=== PATIENT | female | born 1960 | race American Indian/Alaskan Native ===

== ENCOUNTER → 2020-11-05 08:05 | Outpatient (BNVA) | payer OTHER, SELFPAY | PROVIDERS: PCP Physician Assistant; Visit Provider Surgery ==

== ENCOUNTER 2020-12-12 10:33 | Outpatient (REF) | payer OTHER, SELFPAY ==
--- NOTE | ~2020-12-12 | XR_ITS ---
EXAMINATION: XR CHEST CLINICAL INFORMATION: 60-year-old female patient with GERD. COMPARISON: None TECHNIQUE: 2 views of the chest were obtained. FINDINGS: The heart is normal in size. The lungs are clear showing no acute pulmonary parenchymal or pleural disease. The patient's gallbladder has been surgically removed. XR/XR chest 2V IMPRESSION: No acute disease.
--- NOTE | 2020-12-12 10:41 | ECG_ITS ---
Test Reason : gerd Blood Pressure : / mmHG Vent. Rate : 063 BPM Atrial Rate : 063 BPM P-R Int : 138 ms QRS Dur : 084 ms QT Int : 400 ms P-R-T Axes : 006 052 039 degrees QTc Int : 409 ms Normal sinus rhythm Normal ECG No previous ECGs available Referred By: Kulwinder Lucero Electronically Signed By:JEREMÍAS GEORGES MD
[2020-12-12 11:00] LABS: MANUAL DIFF FLAG NO
[2020-12-12 11:56] LABS: Basophils Percent Auto 0.2 % (0-2); Eosinophils Absolute Auto 0.2 X10*3/uL (0.0-0.4); Hematocrit 38.4 % (37-47); Imm Gran Abs Auto 0.02 X10*3/uL (0.00-0.03); Imm Gran Pct Auto 0.3 % (0.0-0.4); Lymphocytes Absolute Auto 1.6 X10*3/uL (1.2-4.9); Lymphocytes Percent Auto 26.1 % (20-40); Mean Corpuscular HGB Conc 33.9 g/dl (31.0-35.0); Mean Corpuscular Volume 94.6 fL (80-98); Mean Platelet Volume 9.6 fL (9.4-12.3); Monocytes Absolute Auto 0.3 X10*3/uL (0.1-1.2); Monocytes Percent Auto 5.3 % (2-11); Neutrophils Absolute Auto 3.9 X10*3/uL (2.0-8.3); Neutrophils Percent Auto 65.1 % (45-73); Platelet Count 284 X10*3/uL (160-400); Red Blood Count 4.06 X10*6/uL (4.20-5.50); Red Cell Distribution Width 11.9 % (11.0-16.0)
[2020-12-12 12:09] LABS: Estimated Average Glucose 111 mg/dL; Hemoglobin A1c % 5.5 %
[2020-12-12 12:20] LABS: Alanine Aminotransferase 31 U/L (0-31); Albumin Level 4.4 g/dL (3.5-5.0); Alkaline Phosphatase 90 U/L (39-117); Anion Gap 11 (12-20); Aspartate Amino Transferase 24 U/L (5-31); Bilirubin Total 0.4 mg/dL (0.0-1.0); Blood Urea Nitrogen 10 mg/dL (9-16); C Reactive Protein 0.96 mg/dL (< or = 0.50); Calcium 9.9 mg/dL (8.4-10.2); Carbon Dioxide 29 mmol/L (22-29); Chloride 105 mmol/L (96-108); Cholesterol 189 mg/dL; Estimated Glomerular Filt Rate > 60; Glucose Random 104 mg/dL (60-115); HDL Cholesterol 50 mg/dL; Iron 81 mcg/dL (30-160); LDL Cholesterol Calculated 127 mg/dl; Percent Iron Saturation 29 % (15-50); Potassium 5.1 mmol/L (3.3-5.1); Sodium 140 mmol/L (135-145); Total Iron Binding Capacity 279 mcg/dL (228-428); Total Protein 6.4 g/dL (6.5-8.0); Triglycerides 60 mg/dL; Unsaturated Iron Binding 198 ug/dL
[2020-12-12 12:26] LABS: Creatinine Urine 112.11 mg/dL; Microalbum/Creatinine Ratio Ur 4.4 ug/mg cr
[2020-12-12 12:38] LABS: Insulin 20 uU/mL (2-29)
[2020-12-12 12:43] LABS: Ferritin 94 ng/mL (10-250); Vitamin D 25-OH Total 16.5 ng/mL (>30)
[2020-12-12 12:50] LABS: Folate 8.8 ng/mL (> or = 4.0); Vitamin B12 394 pg/mL (200-900)
[2020-12-12 13:20] LABS: Free T4 (Free Thyroxine) 0.94 ng/dL (0.71-1.85)
[2020-12-16 01:37] LABS: Calcium (PTHI) 9.5 mg/dL (8.6-10.4); PTHI 54 pg/mL (14-64)
[2020-12-17 03:25] LABS: Zinc 67 mcg/dL (60-130)
[2020-12-17 18:16] LABS: Vitamin A 29 mcg/dL (38-98)
[2020-12-19 05:45] LABS: Vitamin B1 14 nmol/L (8-30)
== END 2020-12-12 10:34 | disposition home or self-care (01) ==
LOC: HO.XRAY 10:33
PROVIDERS: Absent Provider Surgery; PCP Physician Assistant; Visit Provider Physician Assistant
DX: F33.1 Major depressive disorder, recurrent, moderate (principal); G43.109 Migraine with aura, not intractable, without status migrainosus; G47.00 Insomnia, unspecified; I10 Essential (primary) hypertension; J41.0 Simple chronic bronchitis; K21.9 Gastro-esophageal reflux disease without esophagitis; R11.15 Cyclical vomiting syndrome unrelated to migraine
CPT/HCPCS: 36415; 71046; 80053; 80061; 82043; 82306; 82607; 82728; 82746; 83036; 83525; 83540; 83970; 84425; 84439; 84443; 84590; 84630; 85025; 86140; 93005

== ENCOUNTER → 2020-12-18 09:03 | Outpatient (BNVA) | payer OTHER, SELFPAY | PROVIDERS: PCP Physician Assistant; Referring Provider Physician Assistant; Visit Provider Physician Assistant Surgical ==

== ENCOUNTER → 2020-12-24 08:17 | Outpatient (BNVA) | payer OTHER, SELFPAY | PROVIDERS: PCP Physician Assistant; Visit Provider Surgery ==

== ENCOUNTER 2021-02-05 11:02 | Outpatient (REF) | payer OTHER, SELFPAY ==
--- NOTE | ~2021-02-05 | XR_ITS ---
EXAMINATION: XR HIP, RIGHT CLINICAL INFORMATION: Right lower quadrant pain COMPARISON: None TECHNIQUE: Two views of the right hip. FINDINGS: Mild narrowing of the weightbearing joint space with subchondral sclerosis and minimal spurring. No ostial lysis. No fracture or suspicious lesion. Radiodense diverticula in the sigmoid colon. XR/XR hip RT min 2V IMPRESSION: Mild osteoarthritis of the right hip.
== END 2021-02-05 11:03 | disposition home or self-care (01) ==
LOC: HO.XRAY 11:02
PROVIDERS: PCP Physician Assistant; Visit Provider Physician Assistant
DX: M25.551 Pain in right hip (principal); R10.31 Right lower quadrant pain
CPT/HCPCS: 73502

== ENCOUNTER 2021-08-07 07:18 | Outpatient (REF) | payer OTHER, SELFPAY ==
--- NOTE | ~2021-08-07 | CT_ITS ---
EXAMINATION: CT ABDOMEN AND PELVIS WITHOUT CONTRAST CLINICAL INFORMATION: Right lower quadrant pain. COMPARISON: None TECHNIQUE: Multidetector volumetric imaging was performed from the superior aspect of the liver through the pubic symphysis. Sagittal and coronal reformatted images were obtained on the technologist's workstation. This CT examination was performed using dose optimization techniques as appropriate, variously including the following: *Automated exposure control *Adjustment of mA and/or kV according to patient size (this includes techniques or standardized protocols for targeted exams where dose is matched to indication/reason for exam; i.e. extremities or head) *Use of iterative reconstruction technique DLP: 1009 mGy-cm FINDINGS: LUNG BASES: The visualized lung bases are unremarkable. LIVER, GALLBLADDER, AND BILIARY TREE: The liver is normal in size, shape, and attenuation. No focal hepatic lesion or biliary ductal dilatation is present. The gallbladder has been surgically removed. PANCREAS: Unremarkable. SPLEEN: Unremarkable. ADRENAL GLANDS: Unremarkable. KIDNEYS AND URETERS: The kidneys are normal in size, shape, and attenuation. No hydronephrosis, hydroureter, or calculi seen. No perinephric stranding. BLADDER: Unremarkable. GASTROINTESTINAL TRACT: There is scattered stool and gas seen throughout the colon without distention. Oral contrast opacified small bowel loops are normal. Appendix is not seen. There is no inflammatory changes in the right lower quadrant. The stomach is partially distended with recently ingested oral fluid and oral contrast. ABDOMINAL WALL: A small umbilical hernia containing fat is noted. LYMPH NODES: Normal. VASCULAR: Unremarkable. PELVIC VISCERA: The uterus is anteverted and appears unremarkable. No free fluid. No adnexal mass. No abnormal pelvic or inguinal adenopathy. OSSEOUS STRUCTURES: No lytic or sclerotic process seen. There is mild bilateral L5-S1 facet joint arthropathy. CT/CT abdomen pelvis wo con IMPRESSION: No acute intra-abdominal abnormality seen. Especially there is no abnormality in the right lower quadrant. Mild constipation. Appendix is not seen. Fleischner guidelines were followed.
[2021-08-07] MEDS: Barium Sulfate Oral (Mocha) 450 ML ORAL.SUSP 900 ML PO (09:27)
== END 2021-08-07 07:19 | disposition home or self-care (01) ==
LOC: HO.CT 07:18
PROVIDERS: Visit Provider Physician Assistant
DX: R10.31 Right lower quadrant pain (principal); R10.32 Left lower quadrant pain
CPT/HCPCS: 74176

== ENCOUNTER 2021-08-12 09:19 | Outpatient (REF) | payer OTHER, SELFPAY ==
--- NOTE | ~2021-08-12 | XR_ITS ---
EXAMINATION: XR CERVICAL SPINE XR SHOULDER, RIGHT CLINICAL INFORMATION: Neck pain and right shoulder pain. COMPARISON: None TECHNIQUE: Cervical spine 4 views. Right shoulder 4 views. FINDINGS: CERVICAL SPINE: There is mild straightening of the cervical lordosis. The vertebral heights and alignment are normal. There is loss of the C4-C5, C5-C6 and C6-C7 disc heights with mild ventral and posterior spondylosis. No visible acute fracture or dislocation is seen. There is no lytic process. The prevertebral soft tissues are normal. RIGHT SHOULDER: There is mild loss of the right glenohumeral and AC joint space with periarticular spurring. No visible acute fracture, dislocation or subluxation is seen. The soft tissues are normal. XR/XR cervical spine 3V IMPRESSION: Degenerative disc changes with spondylosis at the C4-C5, C5-C6 and C6-C7 disc levels.
--- NOTE | ~2021-08-12 | XR_ITS ---
EXAMINATION: XR CERVICAL SPINE XR SHOULDER, RIGHT CLINICAL INFORMATION: Neck pain and right shoulder pain. COMPARISON: None TECHNIQUE: Cervical spine 4 views. Right shoulder 4 views. FINDINGS: CERVICAL SPINE: There is mild straightening of the cervical lordosis. The vertebral heights and alignment are normal. There is loss of the C4-C5, C5-C6 and C6-C7 disc heights with mild ventral and posterior spondylosis. No visible acute fracture or dislocation is seen. There is no lytic process. The prevertebral soft tissues are normal. RIGHT SHOULDER: There is mild loss of the right glenohumeral and AC joint space with periarticular spurring. No visible acute fracture, dislocation or subluxation is seen. The soft tissues are normal. XR/XR shoulder RT min 2V IMPRESSION: Degenerative disc changes with spondylosis at the C4-C5, C5-C6 and C6-C7 disc levels.
== END 2021-08-12 09:20 | disposition home or self-care (01) ==
LOC: HO.XRAY 09:19
PROVIDERS: Absent Provider Physician Assistant; PCP Physician Assistant; Visit Provider Nurse Practitioner Family
DX: M54.2 Cervicalgia (principal); G89.29 Other chronic pain; M25.511 Pain in right shoulder
CPT/HCPCS: 72040; 73030; 99202

== ENCOUNTER → 2021-09-16 09:02 | Outpatient (BNVA) | payer OTHER, SELFPAY | PROVIDERS: PCP Physician Assistant; Visit Provider Nurse Practitioner Family | DX: M54.2 Cervicalgia (principal); R29.898 Other symptoms and signs involving the musculoskeletal system; R20.0 Anesthesia of skin; R20.2 Paresthesia of skin; M25.511 Pain in right shoulder; G89.29 Other chronic pain; M62.838 Other muscle spasm; G43.009 Migraine without aura, not intractable, without status migrainosus | CPT/HCPCS: 99212 ==

== ENCOUNTER → 2021-09-17 12:51 | Outpatient (BNVA) | payer OTHER, SELFPAY | PROVIDERS: PCP Physician Assistant; Visit Provider Physician Assistant Surgical | DX: E66.01 Morbid (severe) obesity due to excess calories (principal) | CPT/HCPCS: 99212 ==

== ENCOUNTER 2021-09-28 07:00 | Outpatient (RCR) | payer OTHER, SELFPAY ==
[2021-08-12 10:10] VITALS: BP 126/76; PULSE 92; O2SAT 96
--- NOTE | 2021-08-12 11:28 | MHC.PT.EP ---
[place] Office [place] Office [place] Office [address] Ivone Zimmerman [address] [phone] F: [phone] F: [phone] F: [phone] F: [phone] Physical Therapy Plan of Care Date of Evaluation: Date of Surgery: Diagnosis: Rt LOWER QUADRANT PAIN Assessment: 61 YO FEMALE REF TO PT FOR RLQ PAIN- Pt NOTES HER SXS ARE ACTUALLY IN HER KATIA GROIN AREA W ONSET IN MAR AFTER BEING ADMITTED FOR CYCLICAL VOMITING SYNDROME IN 04/14. RECENT CT SCAN R/O HERNIAS. 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 OBJECTIVE FINDINGS: DECR POSTURAL AWARENESS AND FUNCT SQUAT, LIMITED TRUNK AROM, (+) HIP ROM DEFICITS W KATIA IR AND EXTEN, WEAKNESS IN LUMBOPELVIC AREA, (+) JESSICA AND VINNIE TESTS KATIA; (+) TTP KATIA PSOAS / HIP FLEXOR INSERTION/ HIP FLEXOR WAD, AND EPISODES OF SHARP PAIN IN KATIA GROIN REGION. FUNCTIONALLY, Pt NOTES SHE HAS BEEN UNABLE TO DO HER FITNESS WALKS W HER DOG-> she florez s(+) COMPENSATORY AND INEFFICIENT GAIT MECH, LIMITED BED MOB, TOILET/ CHAIR/ CAR TRANSFERS, OR SITTING > 1/2 HOUR. Frequency and Duration: The patient will be seen 2 x WK x 4 WKS Short Term Goals: Pt INDEP W SELF POSTURAL CORRECTION W VARIED SIMUL ADLs IN 1 WK Pt'S KATIA GROIN PAIN DCER TO 2-3/10 IN 2 WKS Pt DEMON WFL AROM HIP EXT AND IMPROVED HIP IR AND ANKLE DF/PF IN 2 WKS Pt DEMO IMPROVED GAIT MECH LEVEL AND STAIRS IN 2 WKS Fci Goals: Pt INDEP W HEP PROGRESSION AND SELF-SX MGMT STRATEGIES IN 4 WKS Pt RESUME REG ADLs EVIDENT W IMPROVED LEFI SCORE BY 8-10 POINTS (AT EVAL 20/80 ) IN 4 WKS Pt INCR LE STRENGTH BY 1/2 TO 1 GRADE IN 4 WKS Treatment Plan: Modalities to reduce pain, spasms and effusion. Manual therapy to restore motion and function. Therapeutic exercise to improve strength and flexibility. Neuromuscular re-education for posture and balance. Therapeutic activities to return to functional activities of daily living. Electronically signed by: Soraya Whitney PT Please sign and return to therapist. Thank you for your referral.
--- NOTE | 2021-09-28 07:56 | MHC.PT.DC ---
[facility] [place] [facility] [place] Office [place] Office [address] Ivone Zimmerman [address] [phone] F: [phone] F: [phone] F: [phone] F: [phone] Physical Therapy Discharge Report Diagnosis: Rt LOWER QUADRANT PAIN Date of Surgery: Date of Evaluation: 08/12/21 Date of Discharge: 09/28/21 Treatments to Date: 8 Cancellations to Date: 4 No Shows to Date: 1 Discharge Status: Achieved Goals Improved Function Independent with HEP Discharge Summary: Pt HAS PROGRESSED WELL W PT INTERVENTION ADDRESSING Rt LOWER QUADRANT PAIN- SHE IS INDEP W HER PROGR HEP AND HAS BEEN ABLE TO PERFORM HER REG ADLs W/O PAIN LIMITING HER, BUT, W RESPECT TO HER CVS. HER LEFI SCORE HAS IMPROVED , AT EVAL 20/80, AND, AT D/C 63/80 - Pt HAS MET HER PT GOALS AT THIS TIME AN DIS D/C FROM PT. Electronically signed by: Soraya Whitney, PT Please sign and return to therapist. Thank you for your referral.
--- NOTE | 2021-09-28 08:13 | ECG_ITS ---
Test Reason : e66.01 Blood Pressure : / mmHG Vent. Rate : 077 BPM Atrial Rate : 077 BPM P-R Int : 132 ms QRS Dur : 084 ms QT Int : 378 ms P-R-T Axes : 046 060 038 degrees QTc Int : 427 ms Normal sinus rhythm Normal ECG When compared with ECG of 12-DEC-2020 10:44, No significant change was found Referred By: Davis Moran Electronically Signed By:DAMIEN DELCID
== END 2021-09-28 07:56 | disposition home or self-care (01) ==
LOC: HO.PT 07:00
PROVIDERS: PCP Physician Assistant; Visit Provider Physician Assistant
DX: R10.31 Right lower quadrant pain (principal)
CPT/HCPCS: 93005; 97110; 97162; 97530

== ENCOUNTER 2021-09-28 08:07 | Outpatient (REF) | payer OTHER, SELFPAY ==
--- NOTE | ~2021-09-28 | XR_ITS ---
EXAMINATION: XR CHEST CLINICAL INFORMATION: Obesity COMPARISON: Previous chest x-ray November 2020 TECHNIQUE: 2 views of the chest were obtained. FINDINGS: The cardiac and mediastinal contours are normal. The lungs are clear. There is no pleural effusion or pneumothorax. There are degenerative changes of the spine. XR/XR chest 2V IMPRESSION: No evidence for acute disease in the chest.
[2021-09-28 08:33] LABS: MANUAL DIFF FLAG NO
[2021-09-28 08:41] LABS: Basophils Percent Auto 0.2 % (0-2); Eosinophils Absolute Auto 0.2 X10*3/uL (0.0-0.4); Hemoglobin 14.7 g/dl (12.0-16.0); Imm Gran Abs Auto 0.02 X10*3/uL (0.00-0.03); Imm Gran Pct Auto 0.3 % (0.0-0.4); Lymphocytes Absolute Auto 1.3 X10*3/uL (1.2-4.9); Lymphocytes Percent Auto 21.4 % (20-40); Mean Corpuscular HGB Conc 34.2 g/dl (31.0-35.0); Mean Corpuscular Hemoglobin 31.3 pg (27.0-33.0); Mean Corpuscular Volume 91.7 fL (80.0-98.0); Mean Platelet Volume 8.9 fL (9.4-12.3); Monocytes Absolute Auto 0.4 X10*3/uL (0.1-1.2); Monocytes Percent Auto 6.6 % (2-11); Neutrophils Absolute Auto 4.1 x10*3/uL (2.0-8.3); Neutrophils Percent Auto 68.5 % (45-73); Platelet Count 290 X10*3/uL (160-400); Red Blood Count 4.69 X10*6/uL (4.20-5.50); Red Cell Distribution Width 12.5 % (11.0-16.0)
[2021-09-28 08:53] LABS: Estimated Average Glucose 108 mg/dL; Hemoglobin A1c % 5.4 %
[2021-09-28 09:08] LABS: Alanine Aminotransferase 36 U/L (0-31); Albumin Level 4.9 g/dL (3.5-5.0); Alkaline Phosphatase 91 U/L (39-117); Anion Gap 16 (12-20); Aspartate Amino Transferase 29 U/L (5-31); Bilirubin Total 0.5 mg/dL (0.0-1.0); Blood Urea Nitrogen 17 mg/dL (9-16); C Reactive Protein 0.62 mg/dL (< or = 0.50); Calcium 9.6 mg/dL (8.4-10.2); Carbon Dioxide 26 mmol/L (22-29); Chloride 104 mmol/L (96-108); Cholesterol 225 mg/dL; Estimated Glomerular Filt Rate > 60; Glucose Random 120 mg/dL (60-115); HDL Cholesterol 56 mg/dL; Iron 98 mcg/dL (30-160); LDL Cholesterol Calculated 152 mg/dl; Percent Iron Saturation 27 % (15-50); Potassium 4.6 mmol/L (3.3-5.1); Sodium 141 mmol/L (135-145); Total Iron Binding Capacity 363 mcg/dL (228-428); Total Protein 7.3 g/dL (6.5-8.0); Triglycerides 86 mg/dL; Unsaturated Iron Binding 265 ug/dL
[2021-09-28 09:30] LABS: Ferritin 71 ng/mL (10-250); TSH reflex Free T4 0.24 uIU/mL (0.32-4.0)
[2021-09-28 09:49] LABS: Folate 15.4 ng/mL (> or = 4.0); Vitamin B12 505 pg/mL (200-900)
[2021-09-28 10:07] LABS: Free T4 (Free Thyroxine) 1.03 ng/dL (0.71-1.85); Insulin 28 uU/mL (2-29)
[2021-09-29 12:48] LABS: Calcium (PTHI) 9.8 mg/dL (8.6-10.4); PTHI 65 pg/mL (16-77)
[2021-10-01 05:26] LABS: Zinc 91 mcg/dL (60-130)
[2021-10-02 23:42] LABS: Vitamin A 43 mcg/dL (38-98)
[2021-10-03 11:03] LABS: Vitamin B1 11 nmol/L (8-30)
== END 2021-09-28 08:08 | disposition home or self-care (01) ==
LOC: HO.LAB 08:07
PROVIDERS: Absent Provider Physician Assistant; PCP Physician Assistant; Visit Provider Physician Assistant Surgical
DX: E66.01 Morbid (severe) obesity due to excess calories (principal); E05.90 Thyrotoxicosis, unspecified without thyrotoxic crisis or storm
CPT/HCPCS: 36415; 71046; 80053; 80061; 82607; 82728; 82746; 83036; 83525; 83540; 83970; 84425; 84439; 84443; 84590; 84630; 85025; 86140

== ENCOUNTER 2021-10-29 09:27 | Outpatient (REF) | payer OTHER, SELFPAY ==
--- NOTE | 2021-10-29 09:30 | EMG_ITS ---
Right median and ulnar motor and sensory studies were performed, right radial sensory study was performed, and paraspinal muscles were tested with a needle. IMPRESSION: Mild right median and mild right ulnar neuropathy affecting sensory components. 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 MD HOLGER Benton/MODL / [id number]
== END 2021-10-29 09:28 | disposition home or self-care (01) ==
LOC: HO.NEURO 09:27
PROVIDERS: PCP Physician Assistant; Visit Provider Nurse Practitioner Family
DX: M54.2 Cervicalgia (principal); R20.0 Anesthesia of skin; R20.2 Paresthesia of skin; R29.898 Other symptoms and signs involving the musculoskeletal system
CPT/HCPCS: 95886; 95909

== ENCOUNTER 2022-08-02 07:26 | Outpatient (REF) | payer OTHER, SELFPAY ==
[2022-08-02 07:42] LABS: MANUAL DIFF FLAG NO
[2022-08-02 08:22] LABS: Basophils Percent Auto 0.4 % (0-2); Eosinophils Absolute Auto 0.2 X10*3/uL (0.0-0.4); Eosinophils Percent Auto 4.1 % (0-4); Hematocrit 39.3 % (37.0-47.0); Imm Gran Abs Auto 0.02 X10*3/uL (0.00-0.03); Imm Gran Pct Auto 0.4 % (0.0-0.4); Lymphocytes Absolute Auto 1.4 X10*3/uL (1.2-4.9); Lymphocytes Percent Auto 24.5 % (20-40); Mean Corpuscular HGB Conc 33.1 g/dl (31.0-35.0); Mean Corpuscular Hemoglobin 31.7 pg (27.0-33.0); Mean Corpuscular Volume 95.9 fL (80.0-98.0); Mean Platelet Volume 9.4 fL (9.4-12.3); Monocytes Absolute Auto 0.4 X10*3/uL (0.1-1.2); Neutrophils Absolute Auto 3.5 x10*3/uL (2.0-8.3); Neutrophils Percent Auto 63.6 % (45-73); Platelet Count 252 X10*3/uL (160-400); Red Cell Distribution Width 12.6 % (11.0-16.0); White Blood Count 5.6 X10*3/uL (4.8-10.8)
[2022-08-02 08:36] LABS: Estimated Average Glucose 105 mg/dL; Hemoglobin A1c % 5.3 %
[2022-08-02 09:09] LABS: Alanine Aminotransferase 23 U/L (0-31); Albumin Level 4.3 g/dL (3.5-5.0); Alkaline Phosphatase 92 U/L (39-117); Anion Gap 15 (12-20); Aspartate Amino Transferase 20 U/L (5-31); Bilirubin Total 0.4 mg/dL (0.0-1.0); Blood Urea Nitrogen 10 mg/dL (9-16); Calcium 9.3 mg/dL (8.4-10.2); Carbon Dioxide 26 mmol/L (22-29); Chloride 106 mmol/L (96-108); Cholesterol 172 mg/dL; Estimated Glomerular Filt Rate > 60; Glucose Fasting 112 mg/dL (60-99); HDL Cholesterol 55 mg/dL; LDL Cholesterol Calculated 102 mg/dl; Potassium 4.7 mmol/L (3.3-5.1); Sodium 142 mmol/L (135-145); Total Protein 6.2 g/dL (6.5-8.0); Triglycerides 79 mg/dL
[2022-08-02 10:05] LABS: Folate 7.3 ng/mL (> or = 4.0); TSH reflex Free T4 0.41 uIU/mL (0.32-4.0); Vitamin B12 625 pg/mL (200-900); Vitamin D 25-OH Total 16.7 ng/mL (>30)
== END 2022-08-02 07:27 | disposition home or self-care (01) ==
LOC: HO.LAB 07:26
PROVIDERS: PCP Nurse Practitioner Family; Visit Provider Nurse Practitioner Family
DX: E05.90 Thyrotoxicosis, unspecified without thyrotoxic crisis or storm (principal); K21.9 Gastro-esophageal reflux disease without esophagitis; I10 Essential (primary) hypertension
CPT/HCPCS: 36415; 80053; 80061; 82306; 82607; 82746; 83036; 84443; 85025

== ENCOUNTER 2022-08-06 07:39 | Outpatient (REF) | payer OTHER, SELFPAY | END 2022-08-06 07:40 | disposition home or self-care (01) | LOC: HO.HOSX 07:39 | PROVIDERS: Visit Provider Physician Assistant | DX: Z13.89 Encounter for screening for other disorder (principal) ==

== ENCOUNTER 2022-08-11 10:50 | Outpatient (REF) | payer OTHER, SELFPAY ==
--- NOTE | ~2022-08-11 | MM_ITS ---
EXAMINATION: MM SCREENING DIGITAL BREAST TOMOSYNTHESIS, BILATERAL CLINICAL INFORMATION: Screening. Asymptomatic. Prior [id number] mammography currently unavailable. No known family history breast cancer. The lifetime risk of breast cancer based on the Tyrer-Cuzick Model is 7%. COMPARISON: None. TECHNIQUE: Digital breast tomosynthesis is performed in both the craniocaudal and mediolateral oblique views along with computer-aided detection (CAD). Synthesized 2D images are generated from the tomosynthesis. Additional views are provided: Right CC, left CC x2. FINDINGS: There are scattered areas of fibroglandular density (ACR BI-RADS breast composition Category b). Breast tissue composition borders on predominantly fatty. Background stromal and fibroglandular densities are unremarkable. No architectural abnormality. There are no significant masses, abnormal calcifications, or other abnormalities. The axilla and skin contours are unremarkable. Radiology department staff will attempt to retrieve prior [id number] mammography to allow for comparison in an addendum report. MM/MM tomosynthesis screening BI IMPRESSION: No mammographic evidence of malignancy. ASSESSMENT: BI-RADS 1: Negative RECOMMENDATION: -Routine annual mammography screening. -Radiology department staff will attempt to retrieve prior paj-or-feklu mammography to allow for comparison in an addendum report. This patient's information was entered into a reminder system with a target due date for their next mammogram.
== END 2022-08-11 10:51 | disposition home or self-care (01) ==
LOC: HO.MAMMO 10:50
PROVIDERS: PCP Internal Medicine; Visit Provider Nurse Practitioner Family
DX: Z12.31 Encounter for screening mammogram for malignant neoplasm of breast (principal)
CPT/HCPCS: 77063; 77067

== ENCOUNTER 2022-09-24 13:02 | Outpatient (AMB) | payer OTHER, SELFPAY ==
--- NOTE | 2022-09-24 09:26 | MHC.OFFVIS ---
Intake Intake Visit Reasons: LDCT SD Allergies cephalexin [From Keflex] Allergy (Intermediate, Verified 08/04/22 12:53) Anaphylaxis HPI LDCT SD HPI Details Initial visit for this 62yo former smoker with a 50PYH. Patient started smoking at age 16 for 37 years at 1-2ppd. She quit 9 years ago in 2013. . Reports marijuana use. Denies second hand smoke exposure. Denies exposure to chemicals or substances like asbestos. . Denies known family history of lung cancer. Denies personal history of cancers. Denies chest CT in last year. . Denies recent travel outside the [place]. Denies recent respiratory illness or recent hospitalization for respiratory issues. Denies testing positive for COVID. Admits receiving COVID Vaccine. x 4. . Denies fever, chills, new/worsening cough, hemoptysis, hoarseness or dysphagia. Denies significant chest pain, significant dyspnea or unintentional weight loss. Patient Lung Cancer Screening Questionnaire reviewed with patient by provider. . Shared Decision Making Completed. Patient meets criteria. Discussed in detail with patient, the risk vs benefit of LDCT screening. Patient consents to proceed with scan. Discussed and encouraged continued smoking cessation. [facility] Medical History (Updated 09/24/22 @ 13:31 by Brooke Gonsalez PA-C) Autonomic neuropathy COPD (chronic obstructive pulmonary disease) DJD (degenerative joint disease) GERD (gastroesophageal reflux disease) HTN (hypertension) Impaired fasting blood sugar Migraine Morbid obesity Personal history of nicotine dependence PUD (peptic ulcer disease) Small fiber neuropathy Subclinical hyperthyroidism Surgical History (Updated 09/07/22 @ 12:12 by Brooke Gonsalez PA-C) History of cataract surgery (~11/2021) History of cholecystectomy (~2004) History of left oophorectomy (~1991) History of shoulder surgery (~2005) History of tonsillectomy (~1977) Family History (Updated 08/04/22 @ 13:20 by Hiro Eldridge MD) Father Mental health disorder Heart attack Mother Mental health disorder Heart attack CVA (cerebral vascular accident) Sister Mental health disorder Hypertension Depression Daughter Thyroid condition Social History (Updated 08/04/22 @ 13:22 by Hiro Eldridge MD) Housing: Apartment Alcohol intake: current Alcohol intake frequency: holidays/special occasions only Patient Tobacco Use Status: Former Tobacco user Quit Date: 2013 Tobacco use type: Cigarette Years Smoked: quit 2013 2 pack a day 16 years old start e-Cigarette/Vaping Use: Never Used Second Hand Smoke Exposure: No Substance Use Type: Marijuana service: No Current occupational status: unemployed and disabled Cognitive needs: No Hearing needs: No Vision needs: Yes (Glasses) Assessment & Plan Assessment & Plan (1) Personal history of nicotine dependence: Comment: (former smoker, onset 16yo, 1-2ppd x 37yrs, 50pyh - quit 2013) Code(s): Z87.891 - Personal history of nicotine dependence Plan: - SDM visit completed today in office. - Patient meets criteria for LDCT for lung cancer screening purposes and is asymptomatic. - Smoking cessation counseling offered. Patients can always call [phone]. - Will arrange for a LDCT scan of the chest for screening purposes at [facility]. - Risks, benefits, and alternatives were discussed in detail and the patient agrees to proceed. - Risks discussed include but are not limited to: radiation exposure, anxiety during testing and while awaiting results, false negatives, false positives and possibility of additional intervention such as further imaging or surgical procedures for benign disease. - Benefits are obviously detection of lung cancer at an early stage which can lead to improved outcomes. - Discussed the importance of screening program compliance with adherence to yearly LDCT scan as scheduled - or sooner interval scans for personalized screening regimen. - Discussed follow up plan. Our office will send a letter discussing results and if needed set up phone call and office visit based on CT findings. - Patient educated on results categorization and the management decisions for suspicious findings potentially found on the screening LDCT scan. Any patient with a Lung RADS score of 3 or 4 will be reviewed by a multidisciplinary team at [facility] to form a plan of action in regards to scan findings. - If further work up is warranted for a suspicious lung finding this will be followed by the Lung Cancer Screening program in conjunction with the Thoracic Surgery Department at [facility]. - A copy of the office note and LDCT will be sent to the patient's PCP - as well as documentation on any associated further plans of care. - Incidental findings on LDCT are the PCP's responsibility. These findings are indicated with an S finding on the LDCT Assessment. A note discussing the findings will be sent to the PCP who is then responsible for further management. - All questions answered.? Plan OF NOTE FOR PCP: Patient had Blood on Urinalysis: 1+ 05/19/21; trace 05/22/21; 3+ 07/23/21; 1+ 06/12/22. She has a known history of kidney stone - however smoking is greatest risk factor for bladder cancer - further work up recommended if not done prior. Patient notes a recent abdominal CT at another hospital for work up for uti symptoms and blood in UA. We discussed her speaking with [facility] about urologic referral for further work up which she is interested in as she also has urinary incontinence issues. Coding Level of Care Code Lung Cancer Screening [id number] Diagnoses Personal history of nicotine dependence Z87.891
== END 2022-09-24 13:37 | disposition home or self-care (01) ==
PROVIDERS: PCP Nurse Practitioner Family; Visit Provider Physician Assistant Medical
DX: Z87.891 Personal history of nicotine dependence (principal)
CPT/HCPCS: G0296

== ENCOUNTER 2022-09-24 13:31 | Outpatient (REF) | payer OTHER, SELFPAY ==
--- NOTE | ~2022-09-24 | XR_ITS ---
EXAMINATION: XR BILATERAL HIPS WITH AP PELVIS CLINICAL INFORMATION: Hip pain. COMPARISON: None available. TECHNIQUE: AP view of the pelvis and single views of each hip were obtained. FINDINGS: Examination demonstrates moderate to severe left and mild to moderate right joint space narrowing and sclerosis, with subchondral cyst formation on the left. No fracture or dislocation is seen. Bony mineralization appears preserved. The soft tissues appear unremarkable. XR/XR hip BI w PEL1V IMPRESSION: Moderate to severe left and mild to moderate right osteoarthritis of the hips.
--- NOTE | ~2022-09-24 | CT_ITS ---
EXAMINATION: CT CHEST SCREENING CLINICAL INFORMATION: Personal history of nicotine dependence. COMPARISON: None available. TECHNIQUE: Multidetector volumetric CT imaging of the chest is performed without contrast using low dose technique. Additional 2D coronal and sagittal reformatted images and axial 3D maximum intensity projection (MIP) images are generated on the CT workstation. This CT examination was performed using dose optimization techniques as appropriate, variously including the following: *Automated exposure control *Adjustment of mA and/or kV according to patient size (this includes techniques or standardized protocols for targeted exams where dose is matched to indication/reason for exam; i.e. extremities or head) *Use of iterative reconstruction technique DLP: 83 mGy-cm FINDINGS: LUNGS: The lungs are well-expanded without any acute pneumonic process. There is a 3 mm calcified nodule right upper lobe axial image 146/6, a 3 mm calcified nodule left upper lobe axial image 210/6. No noncalcified nodule, mass or consolidation. MEDIASTINUM: Thyroid lobes are symmetric and normal. The central trachea and bronchi are widely patent. The heart size and great vessels are normal caliber. There is no pericardial effusion. CORONARY ARTERY CALCIFICATION: None visualized on this study. PLEURA: There is no pleural effusion. No pleural mass or thickening. AXILLA: No lymphadenopathy. UPPER ABDOMEN: Visualized liver, spleen, pancreas and bilateral adrenal glands are unremarkable. The gallbladder has been surgically removed. OSSEOUS STRUCTURES: No aggressive lytic or sclerotic process seen. There is mild ventral spondylosis mid and lower dorsal spine. CT/CT lung screening IMPRESSION: There are 3 mm calcified nodules in both upper lobes. ASSESSMENT: Lung-RADS category 2: Benign RECOMMENDATION: Low-dose annual CT chest.
== END 2022-09-24 13:32 | disposition home or self-care (01) ==
LOC: HO.CT 13:31
PROVIDERS: PCP Internal Medicine; Visit Provider Physician Assistant Medical
DX: Z12.2 Encounter for screening for malignant neoplasm of respiratory organs (principal); Z87.891 Personal history of nicotine dependence; M25.552 Pain in left hip; M25.551 Pain in right hip
CPT/HCPCS: 71271; 73521; G0296

== ENCOUNTER 2022-12-07 10:03 | Outpatient (AMB) | payer OTHER, SELFPAY ==
--- NOTE | 2022-12-07 10:08 | MHC.OFFVIS ---
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 Patient reports very mild pain on right hip however her main concern is her left hip pain. States pain has been present for 2 years that has been getting worse. States hx of autonomic neuropathy that causes her to vomit and will have soreness after vomiting episodes. Patient attended PT which provided no relief in her left hip. Occasionally hip will give out with weight bear. Patient also reports intermittent low back pain. She denies any weakness in either lower extremity. She has had cortisone injections given into her left wrist. She has not had an injection given into her low back or either of her hips. Allergies cephalexin [From Keflex] Allergy (Intermediate, Verified 12/07/22 10:18) Anaphylaxis meloxicam Adverse Reaction (Intermediate, Unverified 12/07/22 10:18) Nausea and Vomiting [facility] Medical History (Updated 12/07/22 @ 10:46 by Andrew Downs MD) Small fiber neuropathy Personal history of nicotine dependence Impaired fasting blood sugar PUD (peptic ulcer disease) Autonomic neuropathy Subclinical hyperthyroidism Morbid obesity DJD (degenerative joint disease) Migraine HTN (hypertension) COPD (chronic obstructive pulmonary disease) GERD (gastroesophageal reflux disease) Surgical History History of cataract surgery (~11/2021) History of tonsillectomy (~1977) History of shoulder surgery (~2005) History of left oophorectomy (~1991) History of cholecystectomy (~2004) Family History (Updated 08/04/22 @ 13:20 by Hiro Eldridge MD) Father Mental health disorder Heart attack Mother Mental health disorder Heart attack CVA (cerebral vascular accident) Sister Mental health disorder Hypertension Depression Daughter Thyroid condition Social History Housing: Apartment Alcohol intake: current Alcohol intake frequency: holidays/special occasions only Patient Tobacco Use Status: Former Tobacco user Quit Date: 2013 Tobacco use type: Cigarette Years Smoked: quit 2013 2 pack a day 16 years old start e-Cigarette/Vaping Use: Never Used Second Hand Smoke Exposure: No Substance Use Type: Marijuana service: No Current occupational status: unemployed and disabled Cognitive needs: No Hearing needs: No Vision needs: Yes (Glasses) Physical Exam Vital Signs: BMI result Body Mass Index 49.6 Const Other: Well-nourished well-developed very friendly female awake alert and oriented x3 in no acute distress Extrem Other: Bilateral lower extremity examination shows good capillary refill, no skin lesions noted, normal sensation light touch Left hip examination shows decreased range of motion when compared to her right hip, no tenderness over her bursa, pain with range of motion Results Reviewed Results Reviewed: X-rays of the patient's left hip shows moderate to severe joint space narrowing, subchondral sclerosis, no acute bony abnormalities X-rays of the patient's right hip show moderate joint space narrowing, no acute bony abnormalities Assessment & Plan Assessment & Plan (1) Bilateral primary osteoarthritis of hip: Comment: September 2022Moderate to severe left and mild to moderate right osteoarthritis of the hips. Code(s): M16.0 - Bilateral primary osteoarthritis of hip Plan: Ms. Velázquez presents with bilateral hip pains, left greater than right, due to degenerative joint disease. She also has low back pain most likely due to degenerative disc disease. I had a lengthy discussion with the patient regarding the treatment options. I did give her a prescription for tramadol to help with her pain. I will also refer her to the pain management group here at [facility] for further evaluation regarding non operative treatment such as cortisone injections or physical therapy. The patient understands that she is not a candidate for total hip replacement surgery at this point because her BMI is 49. The patient states that she is currently trying to lose weight. She may benefit from an appointment with the weight loss clinic as well. She will contact me prior to her follow-up appointment in 3 months should any questions or concerns arise. Feel free to call me at any time should questions regarding her orthopedic management arise. Thank you very much for asking me to see this very friendly patient. I spent 22 minutes in reviewing the patient's records and imaging studies, seeing the patient and documenting in the medical record. Orders: Referrals Pain Management Referral M16.0 - Bilateral primary osteoarthritis of hip, M54.50 - Low back pain, unspecified Medications: New tramadol 50 mg PO BID PRN 60 tabs 0RF pain Coding Level of Care Code New Pt Level 2 (96401) Diagnoses Bilateral primary osteoarthritis of hip M16.0
[2022-12-07 10:15] VITALS: BMI 49.6
== END 2022-12-07 10:45 | disposition home or self-care (01) ==
PROVIDERS: PCP Internal Medicine; Visit Provider Orthopaedic Surgery
DX: M16.0 Bilateral primary osteoarthritis of hip (principal)
CPT/HCPCS: 99202

== ENCOUNTER → 2022-12-07 10:03 | Outpatient (BNVA) | payer OTHER, SELFPAY | PROVIDERS: PCP Internal Medicine; Visit Provider Orthopaedic Surgery | DX: M16.0 Bilateral primary osteoarthritis of hip (principal); M54.50 Low back pain, unspecified; G90.9 Disorder of the autonomic nervous system, unspecified | CPT/HCPCS: 99202 ==

== ENCOUNTER 2023-02-02 14:22 | Outpatient (AMB) | payer OTHER, SELFPAY ==
[2023-02-02 14:29] VITALS: BP 120/76; PULSE 86; O2SAT 96; BMI 46.8
--- NOTE | 2023-02-02 14:29 | A.OFFPC_ITS ---
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 Accompanied by: Self / Same As Patient Allergies cephalexin [From Keflex] Allergy (Intermediate, Verified 02/02/23 14:31) Anaphylaxis meloxicam Adverse Reaction (Intermediate, Verified 02/02/23 14:31) Nausea and Vomiting Tobacco use date assessed: 06/29/22 Dental Screening Dental Screen Date: 02/02/23 Did you have a dental visit in the last 12 months?: No Did you have a dental problem in the last 6 months where you did not have access to dental care?: No Was dental information given to patient?: No (Dentures ) HPI Follow up HPI Details 62-year-old morbidly obese female with C OPD GERD hypertension impaired glucose tolerance coming in for follow-up. Last seen in July 2022. Review of the notes in January was seen in the ER for nausea and vomiting showing mild d ehydration or low-potassium blood work showing normal magnesium normal liver function low-sodium normal kidney function elevated blood sugar 160 potassium of 2.9 blood count is normal. Patient has also seen the Ortho for the hip pain more in the left diagnosis of osteoarthritis prescription of tramadol to help with the pain and advised to see pain management not a candidate for total hip replacement. Because of the history of smoking patient had a CT of the chest September 2022 noted 3 mm calcified nodules in both upper lobes.. Also on review of the notes had autonomic testing August 2022 interpretation of small fiber neuropathy affecting sensory fibers sudomotor or dysfunction sympathetic adrenergic overactivity associated with orthostatic hypertension no evidence of hypotension no evidence of POTS has cerebral arteriolar vasoconstriction associated with cerebral alter regular malachi failure seen in hypertension. PAtient was recently seen by Neuro and will be treated with IVIG 4days a month x 2 years- also topamax 25 mg BID and was prescribed transcop.PAtient is very upset about ER as patient does cannabis also to help with nausea due to other meds causing qt prolongation. patient will be referred to Urology also by the neurology due to urine incontinence,PAtient is on valium 5 mg [facility] Medical History (Updated 12/07/22 @ 10:46 by Andrew Downs MD) Small fiber neuropathy Personal history of nicotine dependence Impaired fasting blood sugar PUD (peptic ulcer disease) Autonomic neuropathy Subclinical hyperthyroidism Morbid obesity DJD (degenerative joint disease) Migraine HTN (hypertension) COPD (chronic obstructive pulmonary disease) GERD (gastroesophageal reflux disease) Surgical History History of cataract surgery (~11/2021) History of tonsillectomy (~1977) History of shoulder surgery (~2005) History of left oophorectomy (~1991) History of cholecystectomy (~2004) Family History Father Mental health disorder Heart attack Mother Mental health disorder Heart attack CVA (cerebral vascular accident) Sister Mental health disorder Hypertension Depression Daughter Thyroid condition Social History Housing: Apartment Alcohol intake: current Alcohol intake frequency: holidays/special occasions only Patient Tobacco Use Status: Former Tobacco user Quit Date: 2013 Tobacco use type: Cigarette Years Smoked: quit 2013 2 pack a day 16 years old start e-Cigarette/Vaping Use: Never Used Second Hand Smoke Exposure: No Substance Use Type: Marijuana service: No Current occupational status: unemployed and disabled Cognitive needs: No Hearing needs: No Vision needs: Yes (Glasses) Questionnaire Thrive Questionnaire Date Thrive assessed: 04/22/22 KEVIN-7 AMB Questionnaire KEVIN-7 Date KEVIN - 7 assessed: 04/22/22 Source: Developed by Drs. George Bower, Aaliyah Byrd, Zeus Metzger and colleagues, with an educational gabi from [employer]. Physical exam (Primary Care) BMI result Body Mass Index 46.8 Tobacco/Smoking Status: Tobacco use Status Tobacco use date assessed 06/29/22 08/04/22 12:56 Patient Tobacco Use Status Former Tobacco user 08/04/22 13:22 Tobacco use type Cigarette 08/04/22 13:22 e-Cigarette/Vaping Use Never Used 08/04/22 13:22 Thrive Assessment: Date of Thrive Assessment Date Thrive assessed 04/22/22 08/04/22 12:56 Const General: alert; No acute distress Eyes Conjunctivae: conjunctivae normal Resp Auscultation: clear to auscultation bilaterally Cardio Rate: regular rate Rhythm: regular rhythm GI Inspection: Yes normal to inspection Extrem General: Yes normal to inspection and No edema Assessment and Plan Assessment & Plan (1) Bilateral primary osteoarthritis of hip: Comment: September 2022Moderate to severe left and mild to moderate right osteoarthritis of the hips. Code(s): M16.0 - Bilateral primary osteoarthritis of hip Plan: Patient has seen ortho and the not a suitable candidate for bilateral arthroplasty due to the weight advised to be referred to pain management (2) HTN (hypertension): Code(s): I10 - Essential (primary) hypertension Qualifiers: Hypertension type: primary hypertension Qualified Code(s): I10 - Essential (primary) hypertension Plan: Continue with blood pressure medication. Decrease salt intake and exercise on lisinopril 10 mg once a day (3) Impaired fasting blood sugar: Code(s): R73.01 - Impaired fasting glucose Plan: Decrease the amount of carbohydrate intake, pasta, bread, rice and potatoes are all sugar and that is aside from all the sweet stuff, remember that fruits are good but they are Sweet also. (4) COPD (chronic obstructive pulmonary disease): Code(s): J44.9 - Chronic obstructive pulmonary disease, unspecified Qualifiers: COPD type: chronic bronchitis Chronic bronchitis type: simple Qualified Code(s): J41.0 - Simple chronic bronchitis Plan: Continue with inhalers Symbicort and Ventolin and Spiriva (5) Personal history of nicotine dependence: Comment: (former smoker, onset 16yo, 1-2ppd x 37yrs, 50pyh - quit 2013) Code(s): Z87.891 - Personal history of nicotine dependence Plan: CT scan done annually (6) Morbid obesity: Code(s): E66.01 - Morbid (severe) obesity due to excess calories Plan: Diet and exercise (7) GERD (gastroesophageal reflux disease): Code(s): K21.9 - Gastro-esophageal reflux disease without esophagitis Qualifiers: Esophagitis presence: without esophagitis Qualified Code(s): K21.9 - Gastro-esophageal reflux disease without esophagitis Plan: Avoid the foods that causes that usually spicy foods, tomato products, juices, coffee, soda and foods that your sensitive to. After eating do not lie down, allow 3-4 hours before in lie down. And keep the head of bed above 30 degrees to avoid the acid from going up. Has been follow-up with have sure GI (8) MDD (major depressive disorder), recurrent episode, moderate: Code(s): F33.1 - Major depressive disorder, recurrent, moderate Plan: Continue with present management. Orders: Referrals Pain Management Referral M16.0 - Bilateral primary osteoarthritis of hip Coding Level of Care Code Est Pt Level 4 (90914) Diagnoses Bilateral primary osteoarthritis of hip M16.0 Primary hypertension I10 Hypertension type: primary hypertension Impaired fasting blood sugar R73.01 Simple chronic bronchitis J41.0 COPD type: chronic bronchitis Chronic bronchitis type: simple Personal history of nicotine dependence Z87.891 Morbid obesity E66.01 Gastroesophageal reflux disease without esophagitis K21.9 Esophagitis presence: without esophagitis MDD (major depressive disorder), recurrent episode, moderate F33.1
== END 2023-02-02 14:57 | disposition home or self-care (01) ==
PROVIDERS: PCP Internal Medicine; Visit Provider Internal Medicine
DX: I10 Essential (primary) hypertension (principal); R73.01 Impaired fasting glucose; J41.0 Simple chronic bronchitis; F33.1 Major depressive disorder, recurrent, moderate
CPT/HCPCS: 99214

== ENCOUNTER 2023-02-04 09:46 | Outpatient (AMB) | payer OTHER, SELFPAY ==
--- NOTE | 2023-02-04 09:50 | A.OFFVIS_ITS ---
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 She was referred to our office by Dr. Downs for potential therapeutic injection as patient is not candidate for left hip replacement due to her morbid obesity. She has mild to moderate right hip OA and rates right hip pain at 1-2/10 and left hip moderate to severe OA and rates left hip pain at 7/10. Pain increases after prolonged sitting, changing positions from sitting to standing, weight bearing and walking. She reports almost falling yesterday when she was trying to drop off cooked meal to her neighbor who has cancer and reports her left hip gave out and she was able to catch herself by grabbing a guardrail and landed safely. Left hip pain is localized to lateral hip, minimal GTB tenderness and right groin pain with range of motions. Patient reports minimal relief with tramadol and is trying to loose weight on her own. She completed PT in 2021 without improvement in her functioning or pain reduction. Patient denies any fever, abdominal or back pain, weakness, burning, tingling, numbness, bladder or bowel dysfunction or saddle anesthesia. Patient does not believe [facility] Weight management program appropriate candidate for medical or surgical interventions due to cyclic vomiting syndrome, small fiber neuropathy and autonomic neuropathy. She is interested in Nutritional Consultation to help her improve her eating habits. She also reports starting IVIG home infusion treatments 4x per months for 2 years for her autoimmune neuropathy. [facility] Medical History Small fiber neuropathy Personal history of nicotine dependence Impaired fasting blood sugar PUD (peptic ulcer disease) Autonomic neuropathy Subclinical hyperthyroidism Morbid obesity DJD (degenerative joint disease) Migraine HTN (hypertension) COPD (chronic obstructive pulmonary disease) GERD (gastroesophageal reflux disease) Surgical History History of cataract surgery (~11/2021) History of tonsillectomy (~1977) History of shoulder surgery (~2005) History of left oophorectomy (~1991) History of cholecystectomy (~2004) Family History Father Mental health disorder Heart attack Mother Mental health disorder Heart attack CVA (cerebral vascular accident) Sister Mental health disorder Hypertension Depression Daughter Thyroid condition Social History Housing: Apartment Alcohol intake: current Alcohol intake frequency: holidays/special occasions only Patient Tobacco Use Status: Former Tobacco user Quit Date: 2013 Tobacco use type: Cigarette Years Smoked: quit 2013 2 pack a day 16 years old start e-Cigarette/Vaping Use: Never Used Second Hand Smoke Exposure: No Substance Use Type: Marijuana service: No Current occupational status: unemployed and disabled Cognitive needs: No Hearing needs: No Vision needs: Yes (Glasses) Review of Systems Const All systems reviewed & are unremarkable except as noted in HPI and below Physical Exam Vital Signs: Last Vital Signs Pulse 97 02/04/23 09:56 BP 130/85 02/04/23 09:56 Pulse Ox 96 02/04/23 09:56 Oxygen Delivery Method Room Air 02/04/23 09:56 BMI result Body Mass Index 46.4 General: Appears afebrile. Alert and oriented. Mood and affect appropriate. Follows and participates in conversation appropriately. Respiratory effort is unlabored. No cough. Able to transition from sit to stand unassisted. Ambulates with bilaterally normal heel strike and toe off. Extrem General: Yes capillary refill normal, Yes no clubbing, cyanosis or edema and Yes no calf tenderness Right lower extremity: hip/thigh (strength 5/5.) Details: normal to inspection, normal ROM and crepitus; no tenderness, no ecchymosis and no unusual warmth Left lower extremity: hip/thigh (Limited ROM due to pain. +groin pain with I/E hip rotations. 4/5 strength ) Details: normal to inspection, tenderness Location: of the hip Location: laterally, anteromedially and over the great troc hanter and crepitus; no swelling, no ecchymosis and no unusual warmth Results Reviewed Results Reviewed: XR BILATERAL HIPS WITH AP PELVIS 09/24/22 CLINICAL INFORMATION: Hip pain. FINDINGS: Examination demonstrates moderate to severe left and mild to moderate right joint space narrowing and sclerosis, with subchondral cyst formation on the left. No fracture or dislocation is seen. Bony mineralization appears preserved. The soft tissues appear unremarkable. IMPRESSION: Moderate to severe left and mild to moderate right osteoarthritis of the hips. Assessment & Plan Assessment & Plan (1) Chronic left hip pain: Code(s): M25.552 - Pain in left hip; G89.29 - Other chronic pain (2) Bilateral primary osteoarthritis of hip: Comment: September 2022Moderate to severe left and mild to moderate right osteoarthritis of the hips. Code(s): M16.0 - Bilateral primary osteoarthritis of hip (3) Morbid obesity with BMI of 45.0-49.9, adult: Code(s): E66.01 - Morbid (severe) obesity due to excess calories; Z68.42 - Body mass index [BMI] 45.0-49.9, adult Plan 1. Medical Nutrition referral to assist and empower patient on her weight loss journey to become a potential candidate for left AMBER for significant OA limiting her mobility, walking capacity, daily functioning, sleep and quality of life. She is not diabetic. A1C is 5.3. Patient was encouraged to track diet and daily physical activity, avoid soda/sweet beverages consumptions, processed foods, high and refined carbs, eat mindfully, balance good gut bacteria and get a good nightly sleep. 2. Schedule Left hip intra-articular steroid injection with local and fluoroscopy. Expectations, risks and benefits were reviewed. Patient is aware she will be contacted to schedule this procedure. Patient may consider to return to PT if she obtains significant pain relief with therapeutic hip injection. Avoid heavy lifting, overstretching, deep squats/lunges or walking on uneven surfaces. All questions were answered and the patient is in agreement of plan. Follow-up after injections and sooner as needed. Orders: Referrals Medical Nutrition Therapy Referral E66.01 - Morbid (severe) obesity due to excess calories, G89.29 - Other chronic pain, M16.0 - Bilateral primary osteoarthritis of hip, M25.552 - Pain in left hip, Z68.42 - Body mass index [BMI] 45.0-49.9, adult Coding Level of Care Code New Pt Level 4 (54428) Diagnoses Chronic left hip pain M25.552; G89.29 Bilateral primary osteoarthritis of hip M16.0 Morbid obesity with BMI of 45.0-49.9, adult E66.01; Z68.42
[2023-02-04 09:56] VITALS: BP 130/85; PULSE 97; O2SAT 96; BMI 46.4
== END 2023-02-04 10:17 | disposition home or self-care (01) ==
PROVIDERS: PCP Internal Medicine; Visit Provider Nurse Practitioner Family
DX: M25.552 Pain in left hip (principal); G89.29 Other chronic pain; M16.0 Bilateral primary osteoarthritis of hip; E66.01 Morbid (severe) obesity due to excess calories; Z68.42 Body mass index [BMI] 45.0-49.9, adult
CPT/HCPCS: 99204

== ENCOUNTER → 2023-02-04 09:46 | Outpatient (BNVA) | payer OTHER, SELFPAY | PROVIDERS: PCP Internal Medicine; Visit Provider Nurse Practitioner Family | DX: M16.0 Bilateral primary osteoarthritis of hip (principal); M25.552 Pain in left hip; G89.29 Other chronic pain; E66.01 Morbid (severe) obesity due to excess calories; Z68.42 Body mass index [BMI] 45.0-49.9, adult | CPT/HCPCS: 99202 ==

== ENCOUNTER 2023-02-16 13:32 | Outpatient (AMB) | payer OTHER, SELFPAY ==
[2023-02-16 14:08] VITALS: BP 102/70; PULSE 82; O2SAT 98; BMI 46.6
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
== END 2023-02-16 15:11 | disposition home or self-care (01) ==
PROVIDERS: PCP Nurse Practitioner Family; Visit Provider Nurse Practitioner Family
DX: G43.009 Migraine without aura, not intractable, without status migrainosus (principal); R11.15 Cyclical vomiting syndrome unrelated to migraine
CPT/HCPCS: 99204

== ENCOUNTER → 2023-02-16 13:32 | Outpatient (BNVA) | payer OTHER, SELFPAY | PROVIDERS: PCP Nurse Practitioner Family; Visit Provider Nurse Practitioner Family | DX: G43.009 Migraine without aura, not intractable, without status migrainosus (principal); R11.15 Cyclical vomiting syndrome unrelated to migraine | CPT/HCPCS: 99202 ==

== ENCOUNTER 2023-03-31 07:31 | Outpatient (AMB) | payer OTHER, SELFPAY ==
--- NOTE | 2023-03-31 07:32 | MHC.OFFVIS ---
Intake Intake Visit Reasons: 6wks follow up-Conf[place] Intake Note: patient presents for 6 wk. follow up this appointment is to go over a medication she gave me for migraines, she wants to know how I'm doing Allergies cephalexin [From Keflex] Allergy (Intermediate, Verified 03/31/23 07:33) Anaphylaxis meloxicam Adverse Reaction (Intermediate, Verified 03/31/23 07:33) Nausea and Vomiting HPI HPI Comments History of Present Illness Details 62-year-old female presents for f/u televideo visit via [employer] for follow-up of migraines and cyclical vomiting syndrome. Pt reports she did have an interval influenza a infection, and was quite ill for 2 weeks. During that time she did have an increase headache. However overall, she does feel that within days of starting the Emgality she started to have good effect. Other than the period where she had the flu, she has had 1 breakthrough migraine which responded to rizatriptan. She also notes that for the 1st time in over 20 years she has not had neck pain, she is not sure if this is due to the amitriptyline or the Emgality use. She has not been having cyclical vomiting symptoms. States overall she is feeling much better. She did initially have some drowsiness with the amitriptyline, however this has waned. She is currently taking amitriptyline 20 mg q.h.s.. Baseline headache characteristics: Severe. Shooting, throbbing pain starts in right side of the neck, moves up through the right eye a/w Nausea, vomiting, motion sensitivity, osmophobia, brain fog, activity intolerance. Previous number of migraine days per month prior to starting current preventive tx: 12 migraine days per month in the month prior to starting Emgality. Her migraine attacks were severe and would last for multiple days. [facility] Medical History Small fiber neuropathy Personal history of nicotine dependence Impaired fasting blood sugar PUD (peptic ulcer disease) Autonomic neuropathy Subclinical hyperthyroidism Morbid obesity DJD (degenerative joint disease) Migraine HTN (hypertension) COPD (chronic obstructive pulmonary disease) GERD (gastroesophageal reflux disease) Surgical History History of cataract surgery (~11/2021) History of tonsillectomy (~1977) History of shoulder surgery (~2005) History of left oophorectomy (~1991) History of cholecystectomy (~2004) Family History Father Mental health disorder Heart attack Mother Mental health disorder Heart attack CVA (cerebral vascular accident) Sister Mental health disorder Hypertension Depression Daughter Thyroid condition Social History Housing: Apartment Alcohol intake: current Alcohol intake frequency: holidays/special occasions only Patient Tobacco Use Status: Former Tobacco user Quit Date: 2013 Tobacco use type: Cigarette Years Smoked: quit 2013 2 pack a day 16 years old start e-Cigarette/Vaping Use: Never Used Second Hand Smoke Exposure: No Substance Use Type: Marijuana service: No Current occupational status: unemployed and disabled Cognitive needs: No Hearing needs: No Vision needs: Yes (Glasses) Physical Exam Const General: cooperative and no acute distress Orientation/consciousness: patient oriented x3 Resp Effort & Inspection: normal respiratory effort and able to speak in complete sentences Neuro General: patient oriented x3 Cognition (Neuro): normal cognition Psych Appearance: grossly normal Mental Status: mental status grossly normal Speech and movement: Normal speech and movement present Affect: normal affect Attitude: cooperative Assessment & Plan Assessment & Plan (1) Migraine without aura: Code(s): G43.009 - Migraine without aura, not intractable, without status migrainosus (2) Cyclic vomiting syndrome: Code(s): R11.15 - Cyclical vomiting syndrome unrelated to migraine Plan For neuropathy: Follow-up with Dr Alaniz at [facility] as scheduled. For overall headache management: Continue to optimize good self-care, including but not limited to maintaining a healthy diet, adequate fluid intake, adequate sleep, and engaging in regular physical activity. Track headaches. ? For acute headache treatment: Continue Rizatriptan 10mg prn, may repeat x1 in 2 hours. Previous acute migraine medication trials: Sumatriptan- can help, Rizatriptan has been more effective. Acute migraine medication contraindications: None at this time ? For headache prevention medication: Continue Amitriptyline 20mg qhs- for cyclical vomiting s/s as well. Continue Emgality 120mg sc q month, as patient has had significant beneficial effect from use within days of starting. Continue Topiramate 25mg bid- used for neuropathy Previous migraine prevention medication trials: Propranolol- caused bradycardia. Amitriptyline- was given for sleep- did not help sleep, ? effect on headaches. Depakote- caused nausea. Migraine prevention medication contraindications: BBs d/t COPD ? Pt to follow-up in 3-4 months or sooner prn. Telehealth Telehealth Location of provider rendering services: practice address Location of patient: address on file Patient Identification confirmed using: Name, : Yes Telehealth method: video Patient verbally consented to treatment: Yes Patient verbally consented to billing insurance company: Yes Patient informed of any privacy concerns related to visit: Yes Minutes spent on Phone/Video with Pt.: 7 Coding Level of Care Code Tele Est Pt Level 4 (02511) Diagnoses Migraine without aura G43.009 Cyclic vomiting syndrome R11.15
== END 2023-03-31 08:00 | disposition home or self-care (01) ==
PROVIDERS: PCP Nurse Practitioner Family; Visit Provider Nurse Practitioner Family
DX: G43.009 Migraine without aura, not intractable, without status migrainosus (principal); R11.15 Cyclical vomiting syndrome unrelated to migraine
CPT/HCPCS: 99214

== ENCOUNTER → 2023-03-31 07:31 | Outpatient (BNVA) | payer OTHER, SELFPAY | PROVIDERS: PCP Nurse Practitioner Family; Visit Provider Nurse Practitioner Family ==

== ENCOUNTER 2023-04-05 06:11 | Outpatient (REF) | payer OTHER, MEDICAID, SELFPAY ==
--- NOTE | ~2023-04-05 | FL_ITS ---
INDICATION: Intraoperative fluoroscopy. FLUOROSCOPY: Fluoroscopy Time: 0.2 seconds Dose/air kerma: 13.3 mGy Images saved: 2 FINDINGS: Multiple intraoperative fluoroscopic images are submitted during reported left hip injection. Evaluation is limited secondary to fluoroscopic technique. IMPRESSION: Intra-operative fluoroscopic imaging provided by radiology during reported left hip injection. Please refer to operative note for further information.
== END 2023-04-05 06:12 | disposition home or self-care (01) ==
LOC: CF 06:11
PROVIDERS: Visit Provider Anesthesiology
DX: M16.0 Bilateral primary osteoarthritis of hip (principal); G89.29 Other chronic pain; E66.01 Morbid (severe) obesity due to excess calories; Z68.42 Body mass index [BMI] 45.0-49.9, adult
CPT/HCPCS: 20610; J2795; J3301; Q9967

== ENCOUNTER 2023-04-05 12:56 | Outpatient (AMB) | payer OTHER, SELFPAY ==
[2023-04-05 13:44] VITALS: BP 108/58; PULSE 72; RESP 18; O2SAT 97; BMI 48.3
--- NOTE | 2023-04-05 13:44 | MHC.OFFVIS ---
Intake Vital Signs 04/05/23 13:44 04/05/23 13:46 Height 5 ft 4 in 5 ft 4 in Weight 281 lb 6 oz 281 lb 6 oz BMI 48.3 48.3 BP 108/58 L 112/62 Blood Pressure Location Lt brachial Lt brachial Position Sitting Sitting Respiration 18 18 Pulse 72 82 Pulse Source Pulse Oximeter Pulse Oximeter Pulse Oximetry (%) 97 98 Oxygen Delivery Method Room Air Room Air Comment pre-op post-op Intake Visit Reasons: LEFT INTRA-ARTICULAR HIP INJECTION Allergies cephalexin [From Keflex] Allergy (Intermediate, Verified 04/05/23 13:49) Anaphylaxis meloxicam Adverse Reaction (Intermediate, Verified 04/05/23 13:49) Nausea and Vomiting PFSH Medical History Small fiber neuropathy Personal history of nicotine dependence Impaired fasting blood sugar PUD (peptic ulcer disease) Autonomic neuropathy Subclinical hyperthyroidism Morbid obesity DJD (degenerative joint disease) Migraine HTN (hypertension) COPD (chronic obstructive pulmonary disease) GERD (gastroesophageal reflux disease) Surgical History History of cataract surgery (~11/2021) History of tonsillectomy (~1977) History of shoulder surgery (~2005) History of left oophorectomy (~1991) History of cholecystectomy (~2004) Family History Father Mental health disorder Heart attack Mother Mental health disorder Heart attack CVA (cerebral vascular accident) Sister Mental health disorder Hypertension Depression Daughter Thyroid condition Social History Housing: Apartment Alcohol intake: current Alcohol intake frequency: holidays/special occasions only Patient Tobacco Use Status: Former Tobacco user Quit Date: 2013 Tobacco use type: Cigarette Years Smoked: quit 2013 2 pack a day 16 years old start e-Cigarette/Vaping Use: Never Used Second Hand Smoke Exposure: No Substance Use Type: Marijuana service: No Current occupational status: unemployed and disabled Cognitive needs: No Hearing needs: No Vision needs: Yes (Glasses) Physical Exam Vital Signs: Last Vital Signs Pulse 82 04/05/23 13:46 Resp 18 04/05/23 13:46 BP 112/62 04/05/23 13:46 Pulse Ox 98 04/05/23 13:46 Oxygen Delivery Method Room Air 04/05/23 13:46 BMI result Body Mass Index 48.3 Assessment & Plan Assessment & Plan (1) Chronic left hip pain: Code(s): M25.552 - Pain in left hip; G89.29 - Other chronic pain (2) Bilateral primary osteoarthritis of hip: Comment: September 2022Moderate to severe left and mild to moderate right osteoarthritis of the hips. Code(s): M16.0 - Bilateral primary osteoarthritis of hip Plan: Left hip steroid injection. Informed consent was explained to the patient. All questions were explained and answered. The patient was taken inside of the operating room where she was positioned right lateral decubitus on operating table.. Time-out was performed delineating patient's name and date of , correct site, side, the nature of the procedure, patient's allergy, preoperative antibiotic if needed, need for VT prophylaxis.. All operating room staff was participating in OR time-out procedure. Left hip area of the patient was prepped with ChloraPrep and draped with sterile towels. C-arm was brought over the operating field and picture of left and right lateral views of the bilateral hip joints were delineated on the screen. The smaller joint silhouette was chosen as the target. Projection of the left trochanter to the skin was chosen as the initial needle insertion point. After that the skin and subcutaneous tissues was anesthetized with 2% lidocaine 2.5 mL. 22 gauge 5 in long needle was inserted through the skin and started to advance to the joint space under intermittent lateral and anterior posterior views. The access to the joint space was very difficult. Patient has very narrow silhouette of the intra-articular space. When needle entered the capsule of the joint small amount of the contrast was injected delineating intra-articular space. After that treatment solution containing 3 cc of lidocaine 2%, 2 cc of ropivacaine 0.5% and 40 mg of Kenalog was injected into the joint. The needle was withdrawn sterile dressing was applied.The patient tolerated procedure well. Patient recommended to consider left hip arthroplasty although her BMI of 48 kg/ m2 might be an obstacle to this procedure. Orders: (3) Morbid obesity with BMI of 45.0-49.9, adult: Code(s): E66.01 - Morbid (severe) obesity due to excess calories; Z68.42 - Body mass index [BMI] 45.0-49.9, adult Plan 1. Medical Nutrition referral to assist and empower patient on her weight loss journey to become a potential candidate for left AMBER for significant OA limiting her mobility, walking capacity, daily functioning, sleep and quality of life. She is not diabetic. A1C is 5.3. Patient was encouraged to track diet and daily physical activity, avoid soda/sweet beverages consumptions, processed foods, high and refined carbs, eat mindfully, balance good gut bacteria and get a good nightly sleep. 2. Schedule Left hip intra-articular steroid injection with local and fluoroscopy. Expectations, risks and benefits were reviewed. Patient is aware she will be contacted to schedule this procedure. Patient may consider to return to PT if she obtains significant pain relief with therapeutic hip injection. Avoid heavy lifting, overstretching, deep squats/lunges or walking on uneven surfaces. All questions were answered and the patient is in agreement of plan. Follow-up after injections and sooner as needed. Orders: Orders FL guidance in treatment room 04/05/23 G89.29 - Other chronic pain, M25.552 - Pain in left hip Coding Level of Care Code Procedure Only Diagnoses Chronic left hip pain M25.552; G89.29 Bilateral primary osteoarthritis of hip M16.0 Morbid obesity with BMI of 45.0-49.9, adult E66.01; Z68.42
[2023-04-05 13:46] VITALS: BP 112/62; PULSE 82; RESP 18; O2SAT 98; BMI 48.3
== END 2023-04-05 13:25 | disposition home or self-care (01) ==
LOC: HO.PMCPRC 12:56
PROVIDERS: PCP Nurse Practitioner Family; Visit Provider Anesthesiology
DX: M25.552 Pain in left hip (principal); G89.29 Other chronic pain; M16.0 Bilateral primary osteoarthritis of hip; E66.01 Morbid (severe) obesity due to excess calories; Z68.42 Body mass index [BMI] 45.0-49.9, adult
CPT/HCPCS: 20610; 77002

== ENCOUNTER 2023-05-03 12:46 | Outpatient (AMB) | payer OTHER, SELFPAY ==
--- NOTE | 2023-05-03 12:53 | A.OFFVIS_ITS ---
Intake Vital Signs 05/03/23 12:59 Height 5 ft 4 in Weight 270 lb BMI 46.3 BP 158/75 H Blood Pressure Location Rt brachial Position Sitting Pulse 72 Pulse Source Pulse Oximeter Pulse Oximetry (%) 96 Oxygen Delivery Method Room Air Intake Visit Reasons: LEFT INTRA-ARTICULAR HIP INJECTION Intake Note: Pain today 8 Emergency Care Attendant Required: No Accompanied by: Self / Same As Patient Allergies cephalexin [From Keflex] Allergy (Intermediate, Verified 05/03/23 12:59) Anaphylaxis meloxicam Adverse Reaction (Intermediate, Verified 05/03/23 12:59) Nausea and Vomiting HPI HPI Comments History of Present Illness Details Patient presents today to assess response to left intra-articular hip steroidal injection on 04/05/[address] Stratton. Patient reports ongoing 90% pain relief for left hip since procedure significant improvement in her daily functioning, mobility, ADLs and sleep. Patient reports significant aggravation of pain to her right hip due to doing laundry which is located on the 3rd floor in her apartment building. Patient reports there is no elevator in climbing or descending stairs has been very difficult for her. She is looking into [employer] services to assist her with laundry and other daily tasks that increase her bilateral hip pain. Patient continues to work on her weight loss for potential total hip replacement surgery. Patient also reports she is starting her 1st IVIG infusion at home tomorrow for autonomic neuropathy. Denies any recent cough, cold, infection, fever, any significant changes in her medical history, medications or recent hospitalizations. Past Procedures: 04/05/23: Left hip intra-articular ster oidal injection-90% pain relief PRIOR: Patient is a pleasant 62 years old female presents today for evaluation of left hip pain. She was referred to our office by Dr. Downs for potential therapeutic injection as patient is not candidate for left hip replacement due to her morbid obesity. She has mild to moderate right hip OA and rates right hip pain at 1- 2/10 and left hip moderate to severe OA and rates left hip pain at 7/10. Pain increases after prolonged sitting, changing positions from sitting to standing, weight bearing and walking. She reports almost falling yesterday when she was trying to drop off cooked meal to her neighbor who has cancer and reports her left hip gave out and she was able to catch herself by grabbing a guardrail and landed safely. Left hip pain is localized to lateral hip, minimal GTB tenderness and right groin pain with range of motions. Patient reports minimal relief with tramadol and is trying to loose weight on her own. She completed PT in 2021 without improvement in her functioning or pain reduction. Patient denies any fever, abdominal or back pain, weakness, burning, tingling, numbness, bladder or bowel dysfunction or saddle anesthesia. Patient does not believe [facility] Weight management program appropriate candidate for medical or surgical interventions due to cyclic vomiting syndrome, small fiber neuropathy and autonomic neuropathy. She is interested in Nutritional Consultation to help her improve her eating habits. She also reports starting IVIG home infusion treatments 4x per months for 2 years for her autoimmune neuropathy. [facility] Medical History Small fiber neuropathy Personal history of nicotine dependence Impaired fasting blood sugar PUD (peptic ulcer disease) Autonomic neuropathy Subclinical hyperthyroidism Morbid obesity DJD (degenerative joint disease) Migraine HTN (hypertension) COPD (chronic obstructive pulmonary disease) GERD (gastroesophageal reflux disease) Surgical History History of cataract surgery (~11/2021) History of tonsillectomy (~1977) History of shoulder surgery (~2005) History of left oophorectomy (~1991) History of cholecystectomy (~2004) Family History Father Mental health disorder Heart attack Mother Mental health disorder Heart attack CVA (cerebral vascular accident) Sister Mental health disorder Hypertension Depression Daughter Thyroid condition Social History Housing: Apartment Alcohol intake: current Alcohol intake frequency: holidays/special occasions only Patient Tobacco Use Status: Former Tobacco user Quit Date: 2013 Tobacco use type: Cigarette Years Smoked: quit 2013 2 pack a day 16 years old start e-Cigarette/Vaping Use: Never Used Second Hand Smoke Exposure: No Substance Use Type: Marijuana service: No Current occupational status: unemployed and disabled Cognitive needs: No Hearing needs: No Vision needs: Yes (Glasses) Review of Systems Const All systems reviewed & are unremarkable except as noted in HPI and below Physical Exam Vital Signs: Last Vital Signs Pulse 72 05/03/23 12:59 BP 158/75 H 05/03/23 12:59 Pulse Ox 96 05/03/23 12:59 Oxygen Delivery Method Room Air 05/03/23 12:59 BMI result Body Mass Index 46.3 General: Appears afebrile. Alert and oriented. Mood and affect appropriate. Follows and participates in conversation appropriately. Respiratory effort is unlabored. No cough. Able to transition from sit to stand unassisted. Ambulates with bilaterally normal heel strike and toe off. Extrem General: Yes capillary refill normal, Yes no clubbing, cyanosis or edema and Yes no calf tenderness Right lower extremity: hip/thigh (limited ROM due to pain. +groin pain with I/E hip rotations) Details: normal to inspection, normal ROM and crepitus; no tenderness and no ecchymosis Left lower extremity: hip/thigh (Mild pain with ROM.) Details: normal to inspection and crepitus; no tenderness Results Reviewed Results Reviewed: XR BILATERAL HIPS WITH AP PELVIS 09/24/22 CLINICAL INFORMATION: Hip pain. FINDINGS: Examination demonstrates moderate to severe left and mild to moderate right joint space narrowing and sclerosis, with subchondral cyst formation on the left. No fracture or dislocation is seen. Bony mineralization appears preserved. The soft tissues appear unremarkable. IMPRESSION: Moderate to severe left and mild to moderate right osteoarthritis of the hips. Assessment & Plan Assessment & Plan (1) Morbid obesity with BMI of 45.0-49.9, adult: Code(s): E66.01 - Morbid (severe) obesity due to excess calories; Z68.42 - Body mass index [BMI] 45.0-49.9, adult (2) Chronic left hip pain: Code(s): M25.552 - Pain in left hip; G89.29 - Other chronic pain (3) Bilateral primary osteoarthritis of hip: Comment: September 2022Moderate to severe left and mild to moderate right osteoarthritis of the hips. Code(s): M16.0 - Bilateral primary osteoarthritis of hip (4) Right hip pain: Code(s): M25.551 - Pain in right hip Plan Patient is one month status post left hip steroidal injection with significant improvement in her daily functioning, mobility and sleep are the left side. She recently exacerbated her right hip pain, doing laundry on the 3rd floor in her apartment building with out elevator. She lives on the first basement level floor and reports increasing difficulty with daily climbing and descending stairs. She is considering applying for [employer] services. Patient will continue to monitor her symptoms for the right hip and consider injection as needed. She is aware that she can not receive another steroidal injection in the left hip for 2 more months. Patient will notify our office when her pain returns to baseline. Continue weight loss for potential total hip replacement surgery as well pain reduction on her joints and general health. Encouraged daily physical activity, activity modifications, good posture and adequate hydration. All questions and concerns have been answered and patient agreed with the plan. Follow-up as needed Medications: Discontinued famotidine Discontinued Reason: Patient Refused 40 mg PO BID 90 days 180 tabs 1RF K21.9 - Gastro-esophageal reflux disease without esophagitis Coding Level of Care Code Est Pt Level 3 (58892) Diagnoses Morbid obesity with BMI of 45.0-49.9, adult E66.01; Z68.42 Chronic left hip pain M25.552; G89.29 Bilateral primary osteoarthritis of hip M16.0 Right hip pain M25.551
[2023-05-03 12:59] VITALS: BP 158/75; PULSE 72; O2SAT 96; BMI 46.3
== END 2023-05-03 13:13 | disposition home or self-care (01) ==
PROVIDERS: PCP Nurse Practitioner Family; Visit Provider Nurse Practitioner Family
DX: G89.29 Other chronic pain (principal); M25.552 Pain in left hip; M25.551 Pain in right hip; M16.0 Bilateral primary osteoarthritis of hip
CPT/HCPCS: 99213

== ENCOUNTER → 2023-05-03 12:46 | Outpatient (BNVA) | payer OTHER, SELFPAY | PROVIDERS: PCP Nurse Practitioner Family; Visit Provider Nurse Practitioner Family | DX: M25.552 Pain in left hip (principal); M16.0 Bilateral primary osteoarthritis of hip; M25.551 Pain in right hip; G89.29 Other chronic pain; E66.01 Morbid (severe) obesity due to excess calories; Z68.42 Body mass index [BMI] 45.0-49.9, adult | CPT/HCPCS: 99212 ==

== ENCOUNTER 2023-05-12 13:58 | Outpatient (AMB) | payer OTHER, SELFPAY ==
[2023-05-12 14:00] VITALS: BP 132/80; PULSE 85; O2SAT 98; BMI 47.2
--- NOTE | 2023-05-12 14:00 | A.OFFPC_ITS ---
Vital Signs 05/12/23 14:00 Height 5 ft 4 in Weight 275 lb 0.8 oz BMI 47.2 BP 132/80 Blood Pressure Location Lt brachial Position Sitting Pulse 85 Pulse Source Pulse Oximeter Pulse Oximetry (%) 98 Oxygen Delivery Method Room Air Intake Visit Reasons: autonomic neuropathy, bilateral hip OA, HTN Intake Note: Patient is here to follow up on autonomic neuropathy, bilateral hip OA, HTN Orthotic Aide Required: No Allergies cephalexin [From Keflex] Allergy (Intermediate, Verified 05/12/23 14:01) Anaphylaxis meloxicam Adverse Reaction (Intermediate, Verified 05/12/23 14:01) Nausea and Vomiting Medication List - Last Reconciled 05/12/23 by Hiro Rasmussen PoMD albuterol sulfate 90 mcg/actuation (Ventolin HFA) 1 inh inhalation QID 30 days albuterol sulfate 2.5 mg (3 mL) inhalation QID PRN amitriptyline 10 - 20 mg (1 - 2 x 10 mg) PO BEDTIME 30 days budesonide-formoterol 160-4.5 mcg/actuation (Symbicort) 1 inh inhalation BID 90 days cholecalciferol (vitamin D3) 50 mcg PO DAILY diazepam 5 mg PO BEDTIME PRN 90 days fluconazole 150 mg PO ONCE 1 day galcanezumab-gnlm (Emgality Pen) 120 mg subcut ONCE 30 days lamotrigine 25 mg PO DAILY lisinopril 10 mg PO DAILY 90 days montelukast 10 mg PO DAILY 90 days nebulizers (Aeroneb Go Nebulizer) As directed pantoprazole 40 mg PO DAILY rizatriptan 5 - 10 mg (0.5 - 1 x 10 mg) PO Q2H PRN 90 days scopolamine base 1 patch transdermal Q3D PRN sertraline 200 mg (2 x 100 mg) PO DAILY sucralfate (Carafate) 1 g PO BID sumatriptan succinate 100 mg orally ; PRN; tiotropium bromide (Spiriva with HandiHaler) 1 cap inhalation DAILY topiramate (Topamax) 25 mg PO BID tramadol 50 mg PO BID PRN Tobacco use date assessed: 05/12/23 Dental Screening Dental Screen Date: 05/12/23 HPI autonomic neuropathy, bilateral hip OA, HTN HPI Details 62-year-old morbidly obese female with b ilateral osteoarthritis of the hip hypertension impaired glucose tolerance COPD GERD major depressive disorder last seen in January 2023. Patient has been seeing the pain management for the left intra-articular hip injections done in March 2023 this has shown moderate to severe left and mild to moderate right osteoarthritis of the hips. Patient also is being followed up by Neurology placed on Emgality and rizatriptan. Patient has been placed on amitriptyline 20 mg at bedtime for the cyclical vomiting topiramate 25 mg twice a day. and for the neuropathy sees [facility] and [facility] IVIG infusion. [facility] Medical History Small fiber neuropathy Personal history of nicotine dependence Impaired fasting blood sugar PUD (peptic ulcer disease) Autonomic neuropathy Subclinical hyperthyroidism Morbid obesity DJD (degenerative joint disease) Migraine HTN (hypertension) COPD (chronic obstructive pulmonary disease) GERD (gastroesophageal reflux disease) Surgical History History of cataract surgery (~11/2021) History of tonsillectomy (~1977) History of shoulder surgery (~2005) History of left oophorectomy (~1991) History of cholecystectomy (~2004) Family History Father Mental health disorder Heart attack Mother Mental health disorder Heart attack CVA (cerebral vascular accident) Sister Mental health disorder Hypertension Depression Daughter Thyroid condition Social History Housing: Apartment Alcohol intake: current Alcohol intake frequency: holidays/special occasions only Patient Tobacco Use Status: Former Tobacco user Quit Date: 2013 Tobacco use type: Cigarette Years Smoked: quit 2013 2 pack a day 16 years old start e-Cigarette/Vaping Use: Never Used Second Hand Smoke Exposure: No Substance Use Type: Marijuana service: No Current occupational status: unemployed and disabled Cognitive needs: No Hearing needs: No Vision needs: Yes (Glasses) Questionnaire Thrive Questionnaire Date Thrive assessed: 05/12/23 AUDIT C Alcohol Use Questionnaire (AUDIT-C) 1. How often do you have a drink containing alcohol?: Monthly or less 2. How many drinks containing alcohol do you have on a typical day when you are drinking?: 1 or 2 3. How often do you have six or more drinks on one occasion?: Never Total Score: 1 Score Reviewed/Action Taken: No KEVIN-7 AMB Questionnaire KEVIN-7 Date KEVIN - 7 assessed: 05/12/23 Source: Developed by Drs. George Bower, Aaliyah Byrd, Zeus Metzger and colleagues, with an educational gabi from [employer]. Physical exam (Primary Care) Vital Signs: Last Vital Signs Pulse 85 05/12/23 14:00 BP 132/80 05/12/23 14:00 Pulse Ox 98 05/12/23 14:00 Oxygen Delivery Method Room Air 05/12/23 14:00 BMI result Body Mass Index 47.2 Tobacco/Smoking Status: Tobacco use Status Tobacco use date assessed 05/12/23 05/12/23 14:02 Patient Tobacco Use Status Former Tobacco user 05/12/23 14:02 Tobacco use type Cigarette 05/12/23 14:02 e-Cigarette/Vaping Use Never Used 05/12/23 14:02 Thrive Assessment: Date of Thrive Assessment Date Thrive assessed 05/12/23 05/12/23 14:02 Const General: alert; No acute distress Eyes Conjunctivae: conjunctivae normal Resp Auscultation: clear to auscultation bilaterally Cardio Rate: regular rate Rhythm: regular rhythm GI Inspection: Yes normal to inspection Extrem General: Yes normal to inspection and No edema Assessment and Plan Assessment & Plan (1) CIDP (chronic inflammatory demyelinating polyneuropathy): Code(s): G61.81 - Chronic inflammatory demyelinating polyneuritis Plan: Patient follows up with Neurology and receives IVIG infusion (2) Morbid obesity with BMI of 45.0-49.9, adult: Code(s): E66.01 - Morbid (severe) obesity due to excess calories; Z68.42 - Body mass index [BMI] 45.0-49.9, adult Plan: Diet and exercise (3) Bilateral primary osteoarthritis of hip: Comment: September 2022Moderate to severe left and mild to moderate right osteoarthritis of the hips. Code(s): M16.0 - Bilateral primary osteoarthritis of hip Plan: Patient has met with pain management and has had injections done (4) Migraine: Code(s): G43.909 - Migraine, unspecified, not intractable, without status migrainosus Qualifiers: Intractability: not intractable Migraine type: without aura Status migrainosus presence: without status migrainosus Qualified Code(s): G43.009 - Migraine without aura, not intractable, without status migrainosus Plan: Follows up with Neurology placed on Emgality and rizatriptan as well as preventive medication (5) HTN (hypertension): Code(s): I10 - Essential (primary) hypertension Qualifiers: Hypertension type: primary hypertension Qualified Code(s): I10 - Essential (primary) hypertension Plan: Continue with blood pressure medication. Decrease salt intake and exercise on lisinopril 10 mg once a day (6) Impaired fasting blood sugar: Code(s): R73.01 - Impaired fasting glucose Plan: Decrease the amount of carbohydrate intake, pasta, bread, rice and potatoes are all sugar and that is aside from all the sweet stuff, remember that fruits are good but they are Sweet also. (7) GERD (gastroesophageal reflux disease): Code(s): K21.9 - Gastro-esophageal reflux disease without esophagitis Qualifiers: Esophagitis presence: without esophagitis Qualified Code(s): K21.9 - Gastro-esophageal reflux disease without esophagitis Plan: Avoid the foods that causes that usually spicy foods, tomato products, juices, coffee, soda and foods that your sensitive to. After eating do not lie down, allow 3-4 hours before in lie down. And keep the head of bed above 30 degrees to avoid the acid from going up. (8) COPD (chronic obstructive pulmonary disease): Code(s): J44.9 - Chronic obstructive pulmonary disease, unspecified Qualifiers: COPD type: chronic bronchitis Chronic bronchitis type: simple Qualified Code(s): J41.0 - Simple chronic bronchitis Plan: The inhalers and sent in for the nebulizer treatment for albuterol Medications: New pantoprazole 40 mg PO DAILY 30 tabs 3RF K21.9 - Gastro-esophageal reflux disease without esophagitis nebulizers (Aeroneb Go Nebulizer) As directed 1 ea 0RF J41.0 - Simple chronic bronchitis albuterol sulfate 2.5 mg (3 mL) inhalation QID PRN 180 mL 0RF shortness of breath or wheezing J41.0 - Simple chronic bronchitis Discontinued omeprazole Discontinued Reason: Doctor's Order 40 mg PO DAILY 90 days 90 caps 1RF R11.2 - Nausea with vomiting, unspecified Coding Level of Care Code Est Pt Level 4 (36217) Diagnoses CIDP (chronic inflammatory demyelinating polyneuropathy) G61.81 Morbid obesity with BMI of 45.0-49.9, adult E66.01; Z68.42 Bilateral primary osteoarthritis of hip M16.0 Migraine without aura and without status migrainosus, not intractable G43.009 Intractability: not intractable Migraine type: without aura Status migrainosus presence: without status migrainosus Primary hypertension I10 Hypertension type: primary hypertension Impaired fasting blood sugar R73.01 Gastroesophageal reflux disease without esophagitis K21.9 Esophagitis presence: without esophagitis Simple chronic bronchitis J41.0 COPD type: chronic bronchitis Chronic bronchitis type: simple
== END 2023-05-12 15:50 | disposition home or self-care (01) ==
PROVIDERS: PCP Internal Medicine; Visit Provider Internal Medicine
DX: G61.81 Chronic inflammatory demyelinating polyneuritis (principal); E66.01 Morbid (severe) obesity due to excess calories; Z68.42 Body mass index [BMI] 45.0-49.9, adult; J41.0 Simple chronic bronchitis; M16.0 Bilateral primary osteoarthritis of hip; G43.009 Migraine without aura, not intractable, without status migrainosus; I10 Essential (primary) hypertension; R73.01 Impaired fasting glucose; K21.9 Gastro-esophageal reflux disease without esophagitis
CPT/HCPCS: 99214

== ENCOUNTER 2023-07-26 06:52 | Outpatient (REF) | payer OTHER, SELFPAY ==
--- NOTE | ~2023-07-26 | FL_ITS ---
INDICATION: Intraoperative fluoroscopy. FLUOROSCOPY: Fluoroscopy Time: 0.2 minutes Dose/air kerma: 7.51 mGy Images saved: 2 FINDINGS: Multiple intraoperative fluoroscopic images are submitted during reported left hip injection. Correlation with operative report. Evaluation is limited secondary to fluoroscopic technique. IMPRESSION: Intra-operative fluoroscopic imaging provided by radiology during reported left hip injection. Please refer to operative note for further information.
== END 2023-07-26 06:53 | disposition home or self-care (01) ==
LOC: CF 06:52
PROVIDERS: Visit Provider Anesthesiology
DX: M16.0 Bilateral primary osteoarthritis of hip (principal); G89.29 Other chronic pain
CPT/HCPCS: 20610; J2795; J3301

== ENCOUNTER 2023-07-26 10:57 | Outpatient (AMB) | payer OTHER, SELFPAY ==
--- NOTE | 2023-07-26 11:01 | MHC.OFFVIS ---
Vital Signs 07/26/23 11:17 07/26/23 11:48 Height 5 ft 4 in Weight 275 lb BMI 47.2 BP 108/68 111/82 Blood Pressure Location Lt brachial Lt brachial Position Sitting Sitting Respiration 18 16 Pulse 100 91 Pulse Source Pulse Oximeter Pulse Oximeter Pulse Oximetry (%) 99 98 Oxygen Delivery Method Room Air Room Air Comment Pre-Op Post-Op Intake Visit Reasons: Left theraputic intraarticular hip inj Allergies cephalexin [From Keflex] Allergy (Intermediate, Verified 05/12/23 14:01) Anaphylaxis meloxicam Adverse Reaction (Intermediate, Verified 05/12/23 14:01) Nausea and Vomiting PFSH Medical History Small fiber neuropathy Personal history of nicotine dependence Impaired fasting blood sugar PUD (peptic ulcer disease) Autonomic neuropathy Subclinical hyperthyroidism Morbid obesity DJD (degenerative joint disease) Migraine HTN (hypertension) COPD (chronic obstructive pulmonary disease) GERD (gastroesophageal reflux disease) Surgical History History of cataract surgery (~11/2021) History of tonsillectomy (~1977) History of shoulder surgery (~2005) History of left oophorectomy (~1991) History of cholecystectomy (~2004) Family History Father Mental health disorder Heart attack Mother Mental health disorder Heart attack CVA (cerebral vascular accident) Sister Mental health disorder Hypertension Depression Daughter Thyroid condition Social History Housing: Apartment Alcohol intake: current Alcohol intake frequency: holidays/special occasions only Patient Tobacco Use Status: Former Tobacco user Tobacco use type: Cigarette Years Smoked: quit 2013 2 pack a day 16 years old start e-Cigarette/Vaping Use: Never Used Second Hand Smoke Exposure: No Substance Use Type: Marijuana service: No Current occupational status: unemployed and disabled Cognitive needs: No Hearing needs: No Vision needs: Yes (Glasses) Physical Exam Vital Signs: Last Vital Signs Pulse 91 07/26/23 11:48 Resp 16 07/26/23 11:48 BP 111/82 07/26/23 11:48 Pulse Ox 98 07/26/23 11:48 Oxygen Delivery Method Room Air 07/26/23 11:48 BMI result Body Mass Index 47.2 Assessment & Plan Assessment & Plan (1) Chronic left hip pain: Code(s): M25.552 - Pain in left hip; G89.29 - Other chronic pain Category: Medical (2) Bilateral primary osteoarthritis of hip: Comment: September 2022Moderate to severe left and mild to moderate right osteoarthritis of the hips. Code(s): M16.0 - Bilateral primary osteoarthritis of hip Category: Medical Plan: Left hip steroid injection. Informed consent was explained to the patient. All questions were explained and answered. The patient was taken inside of the operating room where she was positioned right lateral decubitus on operating table.. Time-out was performed delineating patient's name and date of , correct site, side, the nature of the procedure, patient's allergy, preoperative antibiotic if needed, need for VT prophylaxis.. All operating room staff was participating in OR time-out procedure. Left hip area of the patient was prepped with ChloraPrep and draped with sterile towels. C-arm was brought over the operating field and picture of left and right lateral views of the bilateral hip joints were delineated on the screen. The smaller joint silhouette was chosen as the target. Projection of the left trochanter to the skin was chosen as the initial needle insertion point. After that the skin and subcutaneous tissues was anesthetized with 2% lidocaine 2.5 mL. 22 gauge 5 in long needle was inserted through the skin and started to advance to the joint space under intermittent lateral and anterior posterior views. The access to the joint space was very difficult. Patient has very narrow silhouette of the intra-articular space. When needle entered the capsule of the joint small amount of the contrast was injected delineating intra-articular space. After that treatment solution containing 3 cc of lidocaine 2%, 2 cc of ropivacaine 0.5% and 40 mg of Kenalog was injected into the joint. The needle was withdrawn sterile dressing was applied.The patient tolerated procedure well. Patient recommended to consider left hip arthroplasty although her BMI of 48 kg/ m2 might be an obstacle to this procedure. (3) Morbid obesity with BMI of 45.0-49.9, adult: Code(s): E66.01 - Morbid (severe) obesity due to excess calories; Z68.42 - Body mass index [BMI] 45.0-49.9, adult Category: Medical Plan 1. Medical Nutrition referral to assist and empower patient on her weight loss journey to become a potential candidate for left AMBER for significant OA limiting her mobility, walking capacity, daily functioning, sleep and quality of life. She is not diabetic. A1C is 5.3. Patient was encouraged to track diet and daily physical activity, avoid soda/sweet beverages consumptions, processed foods, high and refined carbs, eat mindfully, balance good gut bacteria and get a good nightly sleep. 2. Schedule Left hip intra-articular steroid injection with local and fluoroscopy. Expectations, risks and benefits were reviewed. Patient is aware she will be contacted to schedule this procedure. Patient may consider to return to PT if she obtains significant pain relief with therapeutic hip injection. Avoid heavy lifting, overstretching, deep squats/lunges or walking on uneven surfaces. All questions were answered and the patient is in agreement of plan. Follow-up after injections and sooner as needed. Orders: Orders FL guidance in treatment room Today G89.29 - Other chronic pain, M25.552 - Pain in left hip Coding Level of Care Code Procedure Only Diagnoses Chronic left hip pain M25.552; G89.29 Bilateral primary osteoarthritis of hip M16.0 Morbid obesity with BMI of 45.0-49.9, adult E66.01; Z68.42
[2023-07-26 11:17] VITALS: BP 108/68; PULSE 100; RESP 18; O2SAT 99; BMI 47.2
[2023-07-26 11:48] VITALS: BP 111/82; PULSE 91; RESP 16; O2SAT 98
== END 2023-07-26 11:41 | disposition home or self-care (01) ==
LOC: HO.PMCPRC 10:57
PROVIDERS: PCP Internal Medicine; Visit Provider Anesthesiology
DX: M25.552 Pain in left hip (principal); G89.29 Other chronic pain; M16.0 Bilateral primary osteoarthritis of hip; E66.01 Morbid (severe) obesity due to excess calories; Z68.42 Body mass index [BMI] 45.0-49.9, adult
CPT/HCPCS: 20610; 77002

== ENCOUNTER 2023-08-01 10:18 | Outpatient (AMB) | payer OTHER, SELFPAY ==
--- NOTE | 2023-08-01 10:25 | MHC.OFFVIS ---
Vital Signs 08/01/23 10:26 Height 5 ft 4 in Weight 274 lb BMI 47.0 BP 118/82 Blood Pressure Location Rt brachial Position Sitting Pulse 93 Pulse Source Pulse Oximeter Pulse Oximetry (%) 96 Oxygen Delivery Method Room Air Intake Visit Reasons: 4m follow up-CONF Intake Note: Patient presents for follow up.patient doing good with migraines emgality is working very well. Allergies cephalexin [From Keflex] Allergy (Intermediate, Verified 08/01/23 10:30) Anaphylaxis meloxicam Adverse Reaction (Intermediate, Verified 08/01/23 10:30) Nausea and Vomiting Medication List - Last Reconciled 08/01/23 by DENY Brown [ADULT DIAPER HEAVY ABSORBENCY XXL Urinary Incontinence] albuterol sulfate 90 mcg/actuation (Ventolin HFA) 1 inh inhalation QID 30 days albuterol sulfate 2.5 mg (3 mL) inhalation QID PRN amitriptyline 10 - 20 mg (1 - 2 x 10 mg) PO BEDTIME 30 days [BED PADS 523 x 36 Disposable BLUE BED PADS 523 x 36 Disposable BLUE] [BLOOD PRESSURE KIT As directed] budesonide-formoterol 160-4.5 mcg/actuation (Symbicort) 1 inh inhalation BID 90 days cholecalciferol (vitamin D3) 50 mcg PO DAILY dexamethasone 0.5 mg PO BID diazepam 5 mg PO BEDTIME PRN 90 days fluconazole 150 mg PO ONCE 1 day galcanezumab-gnlm (Emgality Pen) 120 mg subcut ONCE 30 days immun glob W-kqg-ifbr-IgA 0-50 10 gram (Gammagard S-D (IgA < 1 mcg/mL)) 40 grams IV Q4W lamotrigine 25 mg PO DAILY [LARGE GRAB BAR 32 Large] lidocaine HCl 2% 1 appl mucous membrane TID lisinopril 10 mg PO DAILY 90 days miscellaneous medical supply As directed montelukast 10 mg PO DAILY 90 days nebulizers (AeroneCel-Fi by [employer]ivity Go Nebulizer) As directed pantoprazole 40 mg PO DAILY rizatriptan 5 - 10 mg (0.5 - 1 x 10 mg) PO Q2H PRN 100 days scopolamine base 1 patch transdermal Q3D PRN sertraline 200 mg (2 x 100 mg) PO DAILY sucralfate (Carafate) 1 g PO BID sumatriptan succinate 100 mg orally ; PRN; tiotropium bromide (Spiriva with HandiHaler) 1 cap inhalation DAILY topiramate (Topamax) 25 mg PO BID tramadol 50 mg PO BID PRN HPI Comments Details: 62-yr-old female presents for f/u visit. Pt reports she has been having increased vomiting which she attributes to her CIDP- states that any valsalva maneuver triggers an autonomic attack. She has started IVIG 40 gm q week- did not tolerate the doing the consecutive loading dose period. They are now pretreating her w/ dexametahsone prior to her home IVIG tx's. She feels the IVIG is already helping her She had a recent [facility] ER visist at [facility]- was given a GI cocktail which was very helpful. And wonders if we can send her a home version of this. She notes hse has a h/o prolonged QT interval. She states the Emgality is working well, may only have a breakthrough headache only triggered by the vomiting episodes. She is compliant w/ Amitriptyline. Baseline headache characteristics: Baseline headache characteristics: Severe. Shooting, throbbing pain starts in right side of the neck, moves up through the right eye a/w Nausea, vomiting, motion sensitivity, osmophobia, brain fog, activity intolerance. Previous number of migraine days per month prior to starting current preventive tx: 12 migraine days per month in the month prior to starting Emgality. Her migraine attacks were severe and would last for multiple days. [facility] Medical History Small fiber neuropathy Personal history of nicotine dependence Impaired fasting blood sugar PUD (peptic ulcer disease) Autonomic neuropathy Subclinical hyperthyroidism Morbid obesity DJD (degenerative joint disease) Migraine HTN (hypertension) COPD (chronic obstructive pulmonary disease) GERD (gastroesophageal reflux disease) Surgical History History of cataract surgery (~11/2021) History of tonsillectomy (~1977) History of shoulder surgery (~2005) History of left oophorectomy (~1991) History of cholecystectomy (~2004) Family History Father Mental health disorder Heart attack Mother Mental health disorder Heart attack CVA (cerebral vascular accident) Sister Mental health disorder Hypertension Depression Daughter Thyroid condition Social History Housing: Apartment Alcohol intake: current Alcohol intake frequency: holidays/special occasions only Patient Tobacco Use Status: Former Tobacco user Tobacco use type: Cigarette Years Smoked: quit 2013 2 pack a day 16 years old start e-Cigarette/Vaping Use: Never Used Second Hand Smoke Exposure: No Substance Use Type: Marijuana service: No Current occupational status: unemployed and disabled Cognitive needs: No Hearing needs: No Vision needs: Yes (Glasses) Physical Exam Vital Signs: Last Vital Signs Pulse 93 08/01/23 10:26 BP 118/82 08/01/23 10:26 Pulse Ox 96 08/01/23 10:26 Oxygen Delivery Method Room Air 08/01/23 10:26 BMI result Body Mass Index 47.0 Const General: cooperative and no acute distress Orientation/consciousness: patient oriented x3 Resp Effort & Inspection: normal respiratory effort and able to speak in complete sentences Neuro General: patient oriented x3 Cranial nerves: Yes CN's II-XII intact bilaterally Cognition (Neuro): normal cognition Psych Appearance: grossly normal Mental Status: mental status grossly normal Speech and movement: Normal speech and movement present Affect: normal affect Attitude: cooperative Assessment & Plan Assessment & Plan (1) Migraine without aura: Code(s): G43.009 - Migraine without aura, not intractable, without status migrainosus Category: Medical (2) CIDP (chronic inflammatory demyelinating polyneuropathy): Code(s): G61.81 - Chronic inflammatory demyelinating polyneuritis Category: Medical (3) Nausea & vomiting: Code(s): R11.2 - Nausea with vomiting, unspecified Category: Medical Plan For neuropathy: Follow-up with Dr Alaniz at [facility]- IVIG as scheduled. For nausea: May continue prn Lidocaine- max 30ml per day. Trial Metoclopramide 5mg bid- max 2 tabs per day. ? For overall headache management: Continue to optimize good self-care, including but not limited to maintaining a healthy diet, adequate fluid intake, adequate sleep, and engaging in regular physical activity. Track headaches. ? For acute headache treatment: Continue Rizatriptan 10mg prn, may repeat x1 in 2 hours. Previous acute migraine medication trials: Sumatriptan- can help, Rizatriptan has been more effective. Acute migraine medication contraindications: None at this time ? For headache prevention medication: Continue Amitriptyline 20mg qhs- for cyclical vomiting s/s as well. Continue Emgality 120mg sc q month, as patient has had significant beneficial effect from use within days of starting. Continue Topiramate 25mg bid- used for neuropathy Previous migraine prevention medication trials: Propranolol- caused bradycardia. Amitriptyline- was given for sleep- did not help sleep, ? effect on headaches. Depakote- caused nausea. Migraine prevention medication contraindications: BBs d/t COPD ? Pt to follow-up in 6 months or sooner prn. Medications: New metoclopramide HCl 5 mg PO Q6H 30 days PRN 60 tabs 1RF nausea and vomiting MDD 2 tabs Changed From lidocaine HCl 2% 1 appl mucous membrane TID 100 mL 0RF To lidocaine HCl 2% 15 mL PO BID 21 days PRN 600 mL 0RF mouth pain or vomiting MDD 30ml Coding Level of Care Code Est Pt Level 4 (74896) Diagnoses Migraine without aura G43.009 CIDP (chronic inflammatory demyelinating polyneuropathy) G61.81 Nausea & vomiting R11.2
[2023-08-01 10:26] VITALS: BP 118/82; PULSE 93; O2SAT 96; BMI 47.0
== END 2023-08-01 11:28 | disposition home or self-care (01) ==
PROVIDERS: PCP Nurse Practitioner Family; Visit Provider Nurse Practitioner Family
DX: G43.009 Migraine without aura, not intractable, without status migrainosus (principal); G61.81 Chronic inflammatory demyelinating polyneuritis; R11.2 Nausea with vomiting, unspecified
CPT/HCPCS: 99214

== ENCOUNTER → 2023-08-01 10:18 | Outpatient (BNVA) | payer OTHER, SELFPAY | PROVIDERS: PCP Nurse Practitioner Family; Visit Provider Nurse Practitioner Family | DX: G43.009 Migraine without aura, not intractable, without status migrainosus (principal); R11.15 Cyclical vomiting syndrome unrelated to migraine ==

== ENCOUNTER 2023-08-23 11:44 | Outpatient (AMB) | payer OTHER, SELFPAY ==
--- NOTE | 2023-08-23 11:44 | A.OFFVIS_ITS ---
Vital Signs 08/23/23 11:45 Height 5 ft 4 in Weight 274 lb BMI 47.0 Intake Visit Reasons: s/p left theraputic hip inj Allergies cephalexin [From Keflex] Allergy (Intermediate, Verified 08/23/23 11:45) Anaphylaxis meloxicam Adverse Reaction (Intermediate, Verified 08/23/23 11:45) Nausea and Vomiting pregabalin [From Lyrica] Adverse Reaction (Unknown, Verified 08/23/23 11:45) Depression HPI Comments Details: Patient presents today to assess response to left intra-articular hip steroidal injection on 07/26/[address] Stratton. Patient reports ongoing 100% pain relief for left hip since procedure significant improvement in her daily functioning, mobility, ADLs and sleep. She reports no left hip pain with recent 9-days car ride for 6000 miles without any pain in her left hip but did experience mild to moderate right hip symptoms. Patient reports now that she returned after recent trip, she continues to have ongoing complete left hip pain relief since procedure. She was told by Dr. Stratton during recent injection to consider left AMBER as she is bone on bone and no further therapeutic injection due to difficult needle access due to OA. Patient is rescheduling her Orthopedic evaluation with Dr. Downs for October as she has grand-daughter with her during summer vacation. Patient continues to work on weight loss to qualify for potential hip surgery. Denies any recent cough, cold, infection, fever, any significant changes in her medical history, medications or recent hospitalizations. Past Procedures: 07/26/23: Left hip intra-articular steroidal injection-100% pain relief 04/05/23: Left hip intra-articular steroidal injection-90% pain relief PRIOR: Patient is a pleasant 62 years old female presents today for evaluation of left hip pain. She was referred to our office by Dr. Downs for potential therapeutic injection as patient is not candidate for left hip replacement due to her morbid obesity. She has mild to moderate right hip OA and rates right hip pain at 1- 2/10 and left hip moderate to severe OA and rates left hip pain at 7/10. Pain increases after prolonged sitting, changing positions from sitting to standing, weight bearing and walking. She reports almost falling yesterday when she was trying to drop off cooked meal to her neighbor who has cancer and reports her left hip gave out and she was able to catch herself by grabbing a guardrail and landed safely. Left hip pain is localized to lateral hip, minimal GTB tenderness and right groin pain with range of motions. Patient reports minimal relief with tramadol and is trying to loose weight on her own. She completed PT in 2021 without improvement in her functioning or pain reduction. Patient denies any fever, abdominal or back pain, weakness, burning, tingling, numbness, bladder or bowel dysfunction or saddle anesthesia. Patient does not believe [facility] [place] Weight management program appropriate candidate for medical or surgical interventions due to cyclic vomiting syndrome, small fiber neuropathy and autonomic neuropathy. She is interested in Nutritional Consultation to help her improve her eating habits. She also reports starting IVIG home infusion treatments 4x per months for 2 years for her autoimmune neuropathy. [facility] Medical History Small fiber neuropathy Personal history of nicotine dependence Impaired fasting blood sugar PUD (peptic ulcer disease) Autonomic neuropathy Subclinical hyperthyroidism Morbid obesity DJD (degenerative joint disease) Migraine HTN (hypertension) COPD (chronic obstructive pulmonary disease) GERD (gastroesophageal reflux disease) Surgical History History of cataract surgery (~11/2021) History of tonsillectomy (~1977) History of shoulder surgery (~2005) History of left oophorectomy (~1991) History of cholecystectomy (~2004) Family History Father Mental health disorder Heart attack Mother Mental health disorder Heart attack CVA (cerebral vascular accident) Sister Mental health disorder Hypertension Depression Daughter Thyroid condition Social History Housing: Apartment Alcohol intake: current Alcohol intake frequency: holidays/special occasions only Patient Tobacco Use Status: Former Tobacco user Tobacco use type: Cigarette Years Smoked: quit 2013 2 pack a day 16 years old start e-Cigarette/Vaping Use: Never Used Second Hand Smoke Exposure: No Substance Use Type: Marijuana service: No Current occupational status: unemployed and disabled Cognitive needs: No Hearing needs: No Vision needs: Yes (Glasses) Review of Systems Const All systems reviewed & are unremarkable except as noted in HPI and below ENT Reports Normal hearing present Neuro Reports Normal hearing present and Denies confusion Psych Denies confusion Physical Exam Const General: cooperative, alert and awake; No confusion Orientation/consciousness: patient oriented x3 and No confusion Resp Effort & Inspection: able to speak in complete sentences, no audible wheezes and no cough Neuro General: patient oriented x3 and No confusion Cranial nerves: Yes Normal hearing present Cognition (Neuro): normal cognition Psych Mental Status: mental status grossly normal Speech and movement: Clear speech present Affect: normal affect Attitude: cooperative Thought process: Normal thought process present Thought content: Normal thought content present and No Depressive thoughts present Insight: Good insight present (Psych) Judgement: Good judgement present (Psych) Telehealth Telehealth Telehealth Platform: Telephone Location of provider rendering services: practice address Location of patient: address on file Patient Identification confirmed using: Name, : Yes Telehealth method: voice only Patient verbally consented to treatment: Yes Patient verbally consented to billing insurance company: Yes Patient informed of any privacy concerns related to visit: Yes Minutes spent on Phone/Video with Pt.: 13 Results Reviewed Results Reviewed: XR BILATERAL HIPS WITH AP PELVIS 09/24/22 CLINICAL INFORMATION: Hip pain. FINDINGS: Examination demonstrates moderate to severe left and mild to moderate right joint space narrowing and sclerosis, with subchondral cyst formation on the left. No fracture or dislocation is seen. Bony mineralization appears preserved. The soft tissues appear unremarkable. IMPRESSION: Moderate to severe left and mild to moderate right osteoarthritis of the hips. Assessment & Plan Assessment & Plan (1) Morbid obesity with BMI of 45.0-49.9, adult: Code(s): E66.01 - Morbid (severe) obesity due to excess calories; Z68.42 - Body mass index [BMI] 45.0-49.9, adult Category: Medical (2) Chronic left hip pain: Code(s): M25.552 - Pain in left hip; G89.29 - Other chronic pain Category: Medical (3) Bilateral primary osteoarthritis of hip: Comment: September 2022Moderate to severe left and mild to moderate right osteoarthritis of the hips. Code(s): M16.0 - Bilateral primary osteoarthritis of hip Category: Medical Plan Patient is one month status post left hip steroidal injection with significant improvement in her daily functioning, mobility and sleep are the left side. She was able to enjoy recent a very long car ride without any left hip pain but had mild to moderate right hip pain which resolved after the trip. Patient has pending Orthopedic evaluation with Dr. Downs for potential surgical option. Per Dr. Stratton, patient cannot have another left hip injection due to advanced OA and difficult needle access. Continue weight loss for potential total hip replacement surgery. Patient will consider adequate hydration, well-balanced diet such as Mediterranean diet and intermittent fasting. All questions and concerns have been answered and patient agreed with the plan. Follow-up as needed. I hereby testify that I spent 13 minutes in conversation with this patient as well as with planning and coordinating care for this patient and organizing this note. Coding Level of Care Code Tele Est Pt Level 3 (72127) Diagnoses Morbid obesity with BMI of 45.0-49.9, adult E66.01; Z68.42 Chronic left hip pain M25.552; G89.29 Bilateral primary osteoarthritis of hip M16.0
[2023-08-23 11:45] VITALS: BMI 47.0
== END 2023-08-23 11:54 | disposition home or self-care (01) ==
LOC: HO.PMC 11:44
PROVIDERS: PCP Nurse Practitioner Family; Visit Provider Nurse Practitioner Family
DX: E66.01 Morbid (severe) obesity due to excess calories (principal); Z68.42 Body mass index [BMI] 45.0-49.9, adult; M25.552 Pain in left hip; G89.29 Other chronic pain; M16.0 Bilateral primary osteoarthritis of hip
CPT/HCPCS: 99213

== ENCOUNTER → 2023-08-23 11:44 | Outpatient (BNVA) | payer OTHER, SELFPAY | PROVIDERS: PCP Nurse Practitioner Family; Visit Provider Nurse Practitioner Family ==

== ENCOUNTER 2023-10-31 10:23 | Outpatient (AMB) | payer OTHER, SELFPAY ==
[2023-10-31 10:25] VITALS: BMI 29.9
--- NOTE | 2023-10-31 10:25 | A.OFFVIS_ITS ---
Vital Signs 10/31/23 10:25 Height 5 ft 4 in Weight 174 lb BMI 29.9 Intake Visit Reasons: OV- LT hip pain Intake Note: Silvina is a 63 year old female who presents today for a follow up of her left hip OA as she was referred by Dr. Downs to discuss possible Left AMBER. Patient reports very mild pain on right hip however her main concern is her left hip pain. States pain has been present for 2 years that has been getting worse. States hx of autonomic neuropathy that causes her to vomit and will have soreness after vomiting episodes. Patient attended PT which provided no relief in her left hip. Occasionally hip will give out with weight bear. Patient also reports intermittent low back pain. She denies any weakness in either lower extremity. Allergies cephalexin [From Keflex] Allergy (Intermediate, Verified 10/31/23 10:31) Anaphylaxis meloxicam Adverse Reaction (Intermediate, Verified 10/31/23 10:31) Nausea and Vomiting pregabalin [From Lyrica] Adverse Reaction (Unknown, Verified 10/31/23 10:31) Depression HPI HPI OV- LT hip pain: Details: Silvina is a 63 year old female who presents today for a follow up of her left hip OA as she was referred by Dr. Downs to discuss possible Left AMBER. Patient reports very mild pain on right hip however her main concern is her left hip pain. States pain has been present for 2 years that has been getting worse. States hx of autonomic neuropathy that causes her to vomit and will have soreness after vomiting episodes. Patient attended PT which provided no relief in her left hip. Occasionally hip will give out with weight bear. Patient also reports intermittent low back pain. She denies any weakness in either lower extremity. She did receive benefit from prior steroid injections but was told that they were no longer possible for her. She has chronic inflammatory demyelinating polyneuropathy (CIDP). She is followed by a neurologist at [facility] She describes intermittent falling loss of bladder control intermittent episodic bilious vomiting amongst other symptom she is getting immunoglobulin infusions for this. [facility] Medical History (Updated 10/31/23 @ 12:38 by Orville Taylor MD) Small fiber neuropathy CIDP (chronic inflammatory demyelinating polyneuropathy) HTN (hypertension) COPD (chronic obstructive pulmonary disease) Subclinical hyperthyroidism GERD (gastroesophageal reflux disease) PUD (peptic ulcer disease) Impaired fasting blood sugar Personal history of nicotine dependence DJD (degenerative joint disease) Bilateral primary osteoarthritis of hip Migraine without aura Morbid obesity with BMI of 45.0-49.9, adult Surgical History History of cataract surgery (~11/2021) History of tonsillectomy (~1977) History of shoulder surgery (~2005) History of left oophorectomy (~1991) History of cholecystectomy (~2004) Family History Father Mental health disorder Heart attack Mother Mental health disorder Heart attack CVA (cerebral vascular accident) Sister Mental health disorder Hypertension Depression Daughter Thyroid condition Social History Housing: Apartment Alcohol intake: current Alcohol intake frequency: holidays/special occasions only Patient Tobacco Use Status: Former Tobacco user Tobacco use type: Cigarette Years Smoked: quit 2013 2 pack a day 16 years old start e-Cigarette/Vaping Use: Never Used Second Hand Smoke Exposure: No Substance Use Type: Marijuana service: No Current occupational status: unemployed and disabled Cognitive needs: No Hearing needs: No Vision needs: Yes (Glasses) Physical Exam Vital Signs: BMI result Body Mass Index 29.9 Psych Other: Left positive impingement test and positive Trendelenburg gait. The impingement test reproduces her primary complaint Results Reviewed Results Reviewed: I personally reviewed relevant radiographs. Moderate to severe bilateral hip osteoarthritis Assessment & Plan Assessment & Plan (1) Primary osteoarthritis of left hip: Code(s): M16.12 - Unilateral primary osteoarthritis, left hip Category: Medical Plan: This is a 63-year-old woman with multiple medical conditions and severe osteoarthritis of the left hip. We had a long discussion regarding treatment options. Theoretically she is a candidate for arthroplasty and that she has severe arthritis but I am concerned about her risks for complications secondary to several comorbidities including chronic steroid use, small-vessel neuropathy history of frequent falling urinary incontinence and cyclic vomiting syndrome. None of these are absolute contraindications to surgery and the most worrisome is actually her frequent falling in terms of severe complications. Her BMI is over 40 which is acceptable given the severity of her disease but not ideal. I would like to see her back in 3 months and we will continue our discussion that. (2) Small fiber neuropathy: Comment: (small fiber neuropathy affecting sensory fibers- biopsy confirmed - autonomic testing at [facility] 08/05/22) Code(s): G62.9 - Polyneuropathy, unspecified Category: Medical Plan: (3) CIDP (chronic inflammatory demyelinating polyneuropathy): Code(s): G61.81 - Chronic inflammatory demyelinating polyneuritis Category: Medical Plan: Coding Level of Care Code Est Pt Level 4 (08472) Diagnoses Primary osteoarthritis of left hip M16.12 Small fiber neuropathy G62.9 CIDP (chronic inflammatory demyelinating polyneuropathy) G61.81
== END 2023-10-31 11:05 | disposition home or self-care (01) ==
PROVIDERS: PCP Nurse Practitioner Family; Visit Provider Orthopaedic Surgery
DX: M16.12 Unilateral primary osteoarthritis, left hip (principal); G62.9 Polyneuropathy, unspecified; G61.81 Chronic inflammatory demyelinating polyneuritis
CPT/HCPCS: 99213

== ENCOUNTER → 2023-10-31 10:23 | Outpatient (BNVA) | payer OTHER, SELFPAY | PROVIDERS: PCP Nurse Practitioner Family; Visit Provider Orthopaedic Surgery ==

== ENCOUNTER 2023-11-11 14:54 | Outpatient (REF) | payer OTHER, SELFPAY ==
--- NOTE | ~2023-11-11 | CT_ITS ---
EXAMINATION: CT LOW-DOSE SCREENING CHEST WITHOUT CONTRAST CLINICAL INFORMATION: Personal history of nicotine dependence. The patient has a 74 pack-year history of smoking, having quit 10 years ago. COMPARISON: CT chest 09/24/2022. TECHNIQUE: Multidetector volumetric CT imaging of the chest is performed on a Siemens SOMATOM Definition scanner without contrast using low dose technique. Additional 2D coronal and sagittal reformatted images and axial 3D maximum intensity projection (MIP) images are generated on the CT workstation. This CT examination was performed using dose optimization techniques as appropriate, variously including the following: *Automated exposure control *Adjustment of mA and/or kV according to patient size (this includes techniques or standardized protocols for targeted exams where dose is matched to indication/reason for exam; i.e. extremities or head) *Use of iterative reconstruction technique TOTAL EXAM DLP: 84 mGy-cm. CTDIvol: 2.64 mGy. 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 LUNGS: Lung parenchyma: Mild panlobular pulmonary emphysema. Lung nodules/masses: No lung mass or suspicious spiculated nodules, there are few scattered tiny calcified benign nonspecific lung nodular densities measuring up to 4 mm or less AIRWAYS: Trachea and bronchi are normal. PLEURA: No pleural effusion or pneumothorax. MEDIASTINUM AND BERNARDO: No mediastinal, hilar or axillary lymphadenopathy. No mediastinal mass. VESSELS: HEART AND PERICARDIUM: Thoracic aorta is normal in size. Heart is normal in size. No pericardial effusion. No CT evidence of coronary calcifications. There is central line catheter in the SVC. LOWER NECK, AXILLA: The visualized thyroid gland is unremarkable. No axillary mass or adenopathy. VISUALIZED ABDOMEN: Surgical clips from prior cholecystectomy. CHEST WALL AND BONES: No chest wall mass. The visualized bony thorax is within normal limits. CT/CT lung screening IMPRESSION: * No lung mass or suspicious spiculated nodules, there are few scattered tiny calcified benign nonspecific lung nodular densities measuring up to 4 mm or less. * Mild panlobular pulmonary emphysema. * Central line catheter in place. Lung-RADS 1 Category description: No nodule or definitely benign nodule(s). Management: Continue annual screening with LDCT in 12 months Probability for malignancy: Less than 1% Estimated population prevalence 90%. Electronically signed by: Francis Daugherty MD 11/28/2023 11:02 AM EDT RP
== END 2023-11-11 14:55 | disposition home or self-care (01) ==
LOC: HO.CT 14:54
PROVIDERS: PCP Internal Medicine; Visit Provider Physician Assistant Medical
DX: Z12.2 Encounter for screening for malignant neoplasm of respiratory organs (principal); Z87.891 Personal history of nicotine dependence
CPT/HCPCS: 71271

== ENCOUNTER 2024-02-27 11:06 | Outpatient (AMB) | payer OTHER, SELFPAY ==
[2024-02-27 11:07] VITALS: BMI 44.6
--- NOTE | 2024-02-27 11:07 | A.OFFVIS_ITS ---
Vital Signs 02/27/24 11:07 Height 5 ft 4 in Weight 260 lb BMI 44.6 Intake Visit Reasons: Follow up Intake Note: patient stated she is now on 60g of IVIG instead of 40g every week Allergies cephalexin [From Keflex] Allergy (Intermediate, Verified 02/27/24 11:08) Anaphylaxis meloxicam Adverse Reaction (Intermediate, Verified 02/27/24 11:08) Nausea and Vomiting pregabalin [From Lyrica] Adverse Reaction (Unknown, Verified 02/27/24 11:08) Depression Medication List - Last Reconciled 02/27/24 by DENY Brown [ADULT DIAPER HEAVY ABSORBENCY XXL Urinary Incontinence] albuterol sulfate 2.5 mg (3 mL) inhalation QID PRN albuterol sulfate 90 mcg/actuation (Ventolin HFA) 1 inh inhalation QID 30 days amitriptyline 10 - 20 mg (1 - 2 x 10 mg) PO BEDTIME 30 days [BED PADS 523 x 36 Disposable BLUE BED PADS 523 x 36 Disposable BLUE] [BLOOD PRESSURE KIT As directed] budesonide-formoterol 160-4.5 mcg/actuation (Symbicort) 1 inh inhalation BID 90 days cholecalciferol (vitamin D3) 50 mcg PO DAILY dexamethasone 0.5 mg PO BID diazepam 5 mg PO BEDTIME PRN 90 days galcanezumab-gnlm (Emgality Pen) 120 mg subcut ONCE 30 days immun glob D-cnz-kjxb-IgA 0-50 10 gram (Gammagard S-D (IgA < 1 mcg/mL)) 40 grams IV Q4W lamotrigine 25 mg PO DAILY [LARGE GRAB BAR 32 Large] lidocaine HCl 2% 15 mL PO BID PRN 30 days MDD 30ml lisinopril 10 mg PO DAILY 90 days miscellaneous medical supply As directed montelukast 10 mg PO DAILY 90 days nebulizers (Aeroneb Go Nebulizer) As directed pantoprazole 40 mg PO DAILY polyethylene glycol 3350 (Miralax) 17 grams PO BID PRN rizatriptan 5 - 10 mg (0.5 - 1 x 10 mg) PO Q2H PRN 100 days scopolamine base 1 patch transdermal Q3D PRN sertraline 200 mg (2 x 100 mg) PO DAILY sucralfate (Carafate) 1 g PO BID tiotropium bromide (Spiriva with HandiHaler) 1 cap inhalation DAILY topiramate (Topamax) 25 mg PO BID 90 days tramadol 50 mg PO BID 30 days HPI Comments Details: 63-yr-old female presents for to discuss worsening tremors and spasms via Doximity d/t pt's mobility difficulties. Pt reports her neurology team, Dr Alaniz at [facility] asked her to discuss these worsening abnormal movements with us. Though did start her on Cyclobenzaprine- pt taking 10mg qam and prn Diazepam 10-15mg, which helps some. Pt reports, about 2 yrs ago, she started noticing Right 4th-5th finger tingling and right elbow pain. Then a year ago, she started having her fingers start to flex and contract if she was driving for greater then 15 minutes. Since, the whole hand and the arm will posture and spasm. The RUE also shakes when she is trying to use it, say cutting a piece of bread. She has not noticed a rest tremor, but we have previously notes a RUE rest tremor. She is noticing her chin shake when she is talking. She was having some difficulty swallowing, but this resolved with increasing her IVIG tx. The IVIG is also helping with her bouts of cyclical vomiting. Endorses some hyposmia, voice is raspier/more hoarse, orthostatic lightheadedness- though she notes she has a Dx of postural HTN, chronically constipated but on Miralax tid- as having BM triggers vomiting cycles, normal old age stiffness especially when she first gets up, terrible gait- veers to the right and falls to the right- notes advanced left hip OA- needs a hip replacement. Denies parasomnias, hallucinations. She does take Lamotrigene and Sertraline. She may forget to take her Amitriptyline. Sep Brain MRI w/wo- unremarkable. 10/29/2021 RUE EMG/NCS showed Mild right median and mild right ulnar neuropathy affecting sensory components.This pattern is suggestive of non-entrapment type of peripheral neuropathy. . She states the Emgality is working well, may only have a breakthrough headache only triggered by the vomiting episodes or when she has had increased RUE spasms. Baseline headache characteristics: Baseline headache characteristics: Severe. Shooting, throbbing pain starts in right side of the neck, moves up through the right eye a/w Nausea, vomiting, motion sensitivity, osmophobia, brain fog, activity intolerance. Previous number of migraine days per month prior to starting current preventive tx: 12 migraine days per month in the month prior to starting Emgality. Her mi graine attacks were severe and would last for multiple days. [facility] Medical History Small fiber neuropathy CIDP (chronic inflammatory demyelinating polyneuropathy) HTN (hypertension) COPD (chronic obstructive pulmonary disease) Subclinical hyperthyroidism GERD (gastroesophageal reflux disease) PUD (peptic ulcer disease) Impaired fasting blood sugar Personal history of nicotine dependence DJD (degenerative joint disease) Bilateral primary osteoarthritis of hip Migraine without aura Morbid obesity with BMI of 45.0-49.9, adult Surgical History History of cataract surgery (~11/2021) History of tonsillectomy (~1977) History of shoulder surgery (~2005) History of left oophorectomy (~1991) History of cholecystectomy (~2004) Family History Father Mental health disorder Heart attack Mother Mental health disorder Heart attack CVA (cerebral vascular accident) Sister Mental health disorder Hypertension Depression Daughter Thyroid condition Social History Housing: Apartment Alcohol intake: current Alcohol intake frequency: holidays/special occasions only Patient Tobacco Use Status: Former Tobacco user Tobacco use type: Cigarette Years Smoked: quit 2014 2 pack a day 16 years old start e-Cigarette/Vaping Use: Never Used Second Hand Smoke Exposure: No Substance Use Type: Marijuana service: No Current occupational status: unemployed and disabled Cognitive needs: No Hearing needs: No Vision needs: Yes (Glasses) Physical Exam Vital Signs: BMI result Body Mass Index 44.6 Const General: cooperative and no acute distress Orientation/consciousness: patient oriented x3 Resp Effort & Inspection: normal respiratory effort and able to speak in complete sentences Neuro Other: Mild softer, hoarser voice No visible tremor. General: patient oriented x3 Cranial nerves: Yes CN's II-XII intact bilaterally Cognition (Neuro): normal cognition Psych Appearance: grossly normal Mental Status: mental status grossly normal Speech and movement: Normal speech and movement present Affect: normal affect Attitude: cooperative Telehealth Telehealth Telehealth Platform: [employer] Location of provider rendering services: practice address Location of patient: address on file Patient Identification confirmed using: Name, : Yes Telehealth method: video Patient verbally consented to treatment: Yes Patient verbally consented to billing insurance company: Yes Patient informed of any privacy concerns related to visit: Yes Minutes spent on Phone/Video with Pt.: 37 Assessment & Plan Assessment & Plan (1) Tremor: Code(s): R25.1 - Tremor, unspecified Category: Medical (2) Hyposmia: Code(s): R43.8 - Other disturbances of smell and taste Category: Medical (3) Abnormal movements: Code(s): R25.9 - Unspecified abnormal involuntary movements Category: Medical (4) Migraine without aura: Code(s): G43.009 - Migraine without aura, not intractable, without status migrainosus Category: Medical (5) CIDP (chronic inflammatory demyelinating polyneuropathy): Code(s): G61.81 - Chronic inflammatory demyelinating polyneuritis Category: Medical (6) Nausea & vomiting: Code(s): R11.2 - Nausea with vomiting, unspecified Category: Medical Plan For tremor, episodes of RUE posturing/spasms: Pt is advised to undergo DaTscan to assess for dopaminergic uptake deficiencies w/in the basal ganglia, which could account for many of pt's s/s. For now, may continue prn continue prn Cyclobenzaprine and Dizepam Futur considerations: Trial of dopaminergic tx or carbamazepine (or alternate d/t Eliquis tx) if DaTscan normal. Repeat RUE EMG/NCS. For neuropathy: Follow-up with Dr Alaniz at [facility]- IVIG as scheduled. For nausea: May continue prn Lidocaine- max 30ml per day. Pt has stopped Metoclopramide 5mg bid- max 2 tabs per day. ? For overall headache management: Continue to optimize good self-care, including but not limited to maintaining a healthy diet, adequate fluid intake, adequate sleep, and engaging in regular physical activity. Track headaches. ? For acute headache treatment: Continue Rizatriptan 10mg prn, may repeat x1 in 2 hours. Previous acute migraine medication trials: Sumatriptan- can help, Rizatriptan has been more effective. Acute migraine medication contraindications: None at this time ? For headache prevention medication: Continue Amitriptyline 20mg qhs- for cyclical vomiting s/s as well. Continue Emgality 120mg sc q month, as patient has had significant beneficial effect from use within days of starting. Continue Topiramate 25mg bid- used for neuropathy Previous migraine prevention medication trials: Propranolol- caused bradycardia. Amitriptyline- was given for sleep- did not help sleep, ? effect on headaches. Depakote- caused nausea. Migraine prevention medication contraindications: BBs d/t COPD ? Will follow-up upon review of above and patient to follow-up in clinic in 3-4 months or sooner prn. Orders: Orders DaTscan Today G90.9 - Disorder of the autonomic nervous system, unspecified, R25.1 - Tremor, unspecified, R25.9 - Unspecified abnormal involuntary movements, R43.8 - Other disturbances of smell and taste Coding Level of Care Code Tele Est Pt Level 4 (69606) Complex EM visit Add On G2211 Diagnoses Tremor R25.1 Hyposmia R43.8 Abnormal movements R25.9 Migraine without aura G43.009 CIDP (chronic inflammatory demyelinating polyneuropathy) G61.81 Nausea & vomiting R11.2
== END 2024-02-27 12:42 | disposition home or self-care (01) ==
PROVIDERS: PCP Nurse Practitioner Family; Visit Provider Nurse Practitioner Family
DX: R25.1 Tremor, unspecified (principal); R43.8 Other disturbances of smell and taste; R25.9 Unspecified abnormal involuntary movements; G43.009 Migraine without aura, not intractable, without status migrainosus; G61.81 Chronic inflammatory demyelinating polyneuritis; R11.2 Nausea with vomiting, unspecified
CPT/HCPCS: 98014

== ENCOUNTER 2024-09-03 11:52 | Outpatient (REF) | payer OTHER, SELFPAY | END 2024-09-03 11:53 | disposition home or self-care (01) | LOC: HO.HOSX 11:52 | PROVIDERS: Visit Provider Orthopaedic Surgery | DX: Z13.89 Encounter for screening for other disorder (principal) ==

== ENCOUNTER 2024-10-16 08:16 | Outpatient (AMB) | payer OTHER, SELFPAY ==
--- NOTE | 2024-10-16 08:09 | A.OFFVIS_ITS ---
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: No Allergies cephalexin (From Keflex) Allergy (Intermediate, Verified 10/16/24 08:17) Anaphylaxis meloxicam Adverse Reaction (Intermediate, Verified 10/16/24 08:17) Nausea and Vomiting pregabalin (From Lyrica) Adverse Reaction (Unknown, Verified 10/16/24 08:17) Depression Medication List - Last Reconciled 10/16/24 by DENY Brown [ADULT DIAPER HEAVY ABSORBENCY XXL Urinary Incontinence] albuterol sulfate 2.5 mg (3 mL) inhalation QID PRN albuterol sulfate 90 mcg/actuation (Ventolin HFA) 1 inh inhalation QID 30 days amitriptyline 10 - 20 mg (1 - 2 x 10 mg) PO BEDTIME 30 days [BED PADS 523 x 36 Disposable BLUE BED PADS 523 x 36 Disposable BLUE] [BLOOD PRESSURE KIT As directed] budesonide-formoterol 160-4.5 mcg/actuation (Symbicort) 1 inh inhalation BID 90 days cholecalciferol (vitamin D3) 50 mcg PO DAILY dexamethasone 0.5 mg PO BID diazepam 5 mg PO BEDTIME PRN 90 days galcanezumab-gnlm (Emgality Pen) 120 mg subcut QMONTH 3 months immun glob P-hqm-ldah-IgA 0-50 10 gram (Gammagard S-D (IgA < 1 mcg/mL)) 40 grams IV Q4W [LARGE GRAB BAR 32 Large] lidocaine HCl 2% 15 mL PO BID PRN 30 days MDD 30ml lisinopril 10 mg PO DAILY 90 days miscellaneous medical supply As directed montelukast 10 mg PO DAILY 90 days nebulizers (Aeroneb Go Nebulizer) As directed pantoprazole 40 mg PO DAILY polyethylene glycol 3350 (Miralax) 17 grams PO BID PRN rizatriptan 5 - 10 mg (0.5 - 1 x 10 mg) PO Q2H PRN 100 days scopolamine base 1 patch transdermal Q3D PRN sertraline 200 mg (2 x 100 mg) PO DAILY sucralfate (Carafate) 1 g PO BID tiotropium bromide (Spiriva with HandiHaler) 1 cap inhalation DAILY topiramate (Topamax) 25 mg PO BID 90 days HPI Comments Details: 64-yr-old female presents for follow-up appointment of tremor and migraine in setting of PMH CIDP, autonomic neuropathy, HTN, subclinical hyperthyroidism, COPD, splenomegaly, GERD, cyclic vomiting syndrome, urinary incontinence, kidney stone, cervicalgia, osteoarthritis/DJD. ?to discuss worsening tremors and spasms via Doximity d/t pt's mobility difficulties.? Patient reports her tremor is still constant, and she is still prone to dropping things; however, she is not overly bothered by this.? She reports fewer episodes of ?bad spasms?.? She reports she has been able to decrease the cyclobenzaprine from 10 mg q.a.m. and 5 mg q.h.s. to 5 mg b.i.d.. Pt reports her neurology team, Dr Alaniz at [facility], advised her to increase her diazepam dose to 10 mg b.i.d. to prevent anxiety attacks that provoke her cyclical vomiting attacks with severe nausea and vomiting, which then provoke the hypertensive crisis. Patient also states that Dr Alaniz also requested her to have a cardiology consult d/t long-QT and episodes of hypertensive crisis triggered by the cyclical vomiting attacks. S and also also prescribed an anti-HTN cream, but she has not received it yet as it is coming from a compound pharmacy. Patient also states she is currently weaning herself off all of her antidepressant medications, as she has been on them since her early 20s, and they do not seem to have any benefit.? She states she had already stopped 1 of her antidepressant medications, though she was not sure which (possibly lamotrigine). ?And she is currently weaning off Zoloft. ?Was initially on 200 mg daily, and has reduced the dose to 100mg daily over the last few months, with plans to wean off completely. Is not interested in psychotherapy at this time. She states the Emgality continues to work very well, may only have a breakthrough headache only triggered by the vomiting episodes. ?Has as-needed rizatriptan, though has not needed to take it recently. * Baseline headache characteristics: Severe. Shooting, throbbing pain starts in the right side of the neck, moves up through the right eye, a/w Nausea, vomiting, motion sensitivity, osmophobia, brain fog, activity intolerance. She also reports that she is currently in a state of homelessness.? A few months ago, her fianc? left for her daughter's house for a few weeks to help out with something over there.? However, while her fianc? was away, her fianc? requested their roommate to evict her from their apartment.? She states that she has been living in her car, with the exception that she stays at a friend's house for her IVIG treatments. ?She has reports that she has always lived in roommate-type situations; however, she has not been able to find someone open to sharing their home with her, as she has visiting nurse care for her IVIG treatments. ?She states she has some community services; however, she has not looked into [employer] (she thought this was only for veterans) or looked into senior housing (assuming there is a long wait list). ?She is open to a referral to our community nurse navigation program. 02/27/2024, previous HPI: Pt reports, about 2 yrs ago, she started noticing Right 4th-5th finger tingling and right elbow pain. Then a year ago, she started having her fingers start to flex and contract if she was driving for greater then 15 minutes. Since, the whole hand and the arm will posture and spasm. The RUE also shakes when she is trying to use it, say cutting a piece of bread. She has not noticed a rest tremor, but we have previously notes a RUE rest tremor. She is noticing her chin shake when she is talking. She was having some difficulty swallowing, but this resolved with increasing her IVIG tx. The IVIG is also helping with her bouts of cyclical vomiting. Endorses some hyposmia, voice is raspier/more hoarse, orthostatic lightheadedness- though she notes she has a Dx of postural HTN, chronically constipated but on Miralax tid- as having BM triggers vomiting cycles, normal old age stiffness especially when she first gets up, terrible gait- veers to the right and falls to the right- notes advanced left hip OA- needs a hip replacement. Denies parasomnias, hallucinations. She does take Lamotrigene and Sertraline. She may forget to take her Amitriptyline. Sep Brain MRI w/wo- unremarkable. 10/29/2021 RUE EMG/NCS showed Mild right median and mild right ulnar neuropathy affecting sensory components.This pattern is suggestive of non-entrapment type of peripheral neuropathy. . She states the Emgality is working well, may only have a breakthrough headache only triggered by the vomiting episodes or when she has had increased RUE spasms. Baseline headache characteristics: Severe. Shooting, throbbing pain starts in right side of the neck, moves up through the right eye a/w Nausea, vomiting, motion sensitivity, osmophobia, brain fog, activity intolerance. Previous number of migraine days per month prior to starting current preventive tx: 12 migraine days per month in the month prior to starting Emgality. Her migraine attacks were severe and would last for multiple days. [facility] Medical History Small fiber neuropathy CIDP (chronic inflammatory demyelinating polyneuropathy) HTN (hypertension) COPD (chronic obstructive pulmonary disease) Subclinical hyperthyroidism GERD (gastroesophageal reflux disease) PUD (peptic ulcer disease) Impaired fasting blood sugar Personal history of nicotine dependence DJD (degenerative joint disease) Bilateral primary osteoarthritis of hip Migraine without aura Morbid obesity with BMI of 45.0-49.9, adult Surgical History History of cataract surgery (~11/2021) History of tonsillectomy (~1977) History of shoulder surgery (~2005) History of left oophorectomy (~1991) History of cholecystectomy (~2004) Family History Father Mental health disorder Heart attack Mother Mental health disorder Heart attack CVA (cerebral vascular accident) Sister Mental health disorder Hypertension Depression Daughter Thyroid condition Social History Housing: Apartment Alcohol intake: current Alcohol intake frequency: holidays/special occasions only Patient Tobacco Use Status: Former Tobacco user Tobacco use type: Cigarette Years Smoked: quit 2013 2 pack a day 16 years old start e-Cigarette/Vaping Use: Never Used Second Hand Smoke Exposure: No Substance Use Type: Marijuana service: No Current occupational status: unemployed and disabled Cognitive needs: No Hearing needs: No Vision needs: Yes (Glasses) Physical Exam Const General: cooperative and no acute distress Orientation/consciousness: patient oriented x3 Resp Effort & Inspection: normal respiratory effort and able to speak in complete sentences Neuro Other: Mild softer, hoarser voice No visible tremor. General: patient oriented x3 Cranial nerves: Yes CN's II-XII intact bilaterally Cognition (Neuro): normal cognition Psych Appearance: grossly normal Mental Status: mental status grossly normal Speech and movement: Normal speech and movement present Affect: normal affect Attitude: cooperative Telehealth Telehealth Telehealth Platform: [employer] Location of provider rendering services: practice address Location of patient: address on file Patient Identification confirmed using: Name, : Yes Telehealth method: video Patient verbally consented to treatment: Yes Patient verbally consented to billing insurance company: Yes Patient informed of any privacy concerns related to visit: Yes Minutes spent on Phone/Video with Pt.: 37 Assessment & Plan Assessment & Plan (1) Tremor: Code(s): R25.1 - Tremor, unspecified Category: Medical (2) Hyposmia: Code(s): R43.8 - Other disturbances of smell and taste Category: Medical (3) Abnormal movements: Code(s): R25.9 - Unspecified abnormal involuntary movements Category: Medical (4) Migraine without aura: Code(s): G43.009 - Migraine without aura, not intractable, without status migrainosus Category: Medical Qualifiers: Intractability: not intractable Status migrainosus presence: without status migrainosus Qualified Code(s): G43.009 - Migraine without aura, not intractable, without status migrainosus (5) CIDP (chronic inflammatory demyelinating polyneuropathy): Code(s): G61.81 - Chronic inflammatory demyelinating polyneuritis Category: Medical (6) Nausea & vomiting: Code(s): R11.2 - Nausea with vomiting, unspecified Category: Medical Qualifiers: Vomiting type: unspecified Qualified Code(s): R11.2 - Nausea with vomiting, unspecified (7) Homelessness: Code(s): Z59.00 - Homelessness unspecified Category: Medical Plan For general health: * Patient has begun to wean herself off of her antidepressants, with plans to fully wean herself off of Zoloft using the 100 mg tab to do so. Patient has denied any adverse effects from reducing the dose so far. Advised that I would change the Zoloft tab to 50 mg tabs-to ensure that patient could reduce the dose more slowly. * We will initiate a referral for community nurse navigator to assist patient with her current homelessness status- patient agrees to this referral. For tremor, episodes of RUE posturing/spasms: * Reviewed DaTscan results- normal with preserved activity in the bilateral caudate nuclei and putamen. * We will reach out to Dr. Alaniz regarding continuation of Cyclobenzaprine and Dizepam * Future considerations: Trial of dopaminergic tx or carbamazepine (or alternate d/t Eliquis tx) if DaTscan normal. Repeat RUE EMG/NCS. For neuropathy: * Follow-up with Dr Alaniz at [facility] as scheduled. For nausea: * May continue prn Lidocaine- max 30ml per day. * Pt has stopped Metoclopramide 5mg bid- max 2 tabs per day. ? For overall headache management: Continue to optimize good self-care, including but not limited to maintaining a healthy diet, adequate fluid intake, adequate sleep, and engaging in regular physical activity. * Track headaches. ? For acute headache treatment: * Continue Rizatriptan 10mg prn, may repeat x1 in 2 hours. * Previous acute migraine medication trials: Sumatriptan- can help, Rizatriptan has been more effective. * Acute migraine medication contraindications: None at this time ? For headache prevention medication: * Continue Amitriptyline 20mg qhs- for cyclical vomiting s/s as well. * Continue Emgality 120mg sc q month, as patient has had significant beneficial effect from use within days of starting. * Continue Topiramate 25mg bid- used for neuropathy * Previous migraine prevention medication trials: Propranolol- caused bradycardia. Amitriptyline- was given for sleep- did not help sleep, ? effect on headaches. Depakote- caused nausea. * Migraine prevention medication contraindications: All beta-blockers d/t COPD ? Will follow-up upon review of above and patient to follow-up in clinic in 3-4 months or sooner prn. Orders: Referrals Nurse Navigator Referral F33.1 - Major depressive disorder, recurrent, moderate, F41.9 - Anxiety disorder, unspecified, G62.9 - Polyneuropathy, unspecified, J41.0 - Simple chronic bronchitis, Z59.00 - Homelessness unspecified Medications: New sertraline 100 mg (2 x 50 mg) PO DAILY 180 tabs 1RF 90 days Refilled amitriptyline 10 - 20 mg (1 - 2 x 10 mg) PO BEDTIME 60 tabs 6RF 30 days rizatriptan max 2 tabs per day or 4 tabs per week 5 - 10 mg (0.5 - 1 x 10 mg) PO Q2H PRN 40 tabs 8RF migraine headache 100 days Discontinued sertraline Discontinued Reason: Patient no longer taking 200 mg (2 x 100 mg) PO DAILY 180 tabs 3RF F33.1 - Major depressive disorder, recurrent, moderate Coding Level of Care Code Tele Est Pt Level 4 (71872) Complex EM visit Add On G2211 Diagnoses Tremor R25.1 Hyposmia R43.8 Abnormal movements R25.9 Migraine without aura and without status migrainosus, not intractable G43.009 Intractability: not intractable Status migrainosus presence: without status migrainosus CIDP (chronic inflammatory demyelinating polyneuropathy) G61.81 Nausea and vomiting, unspecified vomiting type R11.2 Vomiting type: unspecified Homelessness Z59.00
--- OUTSIDE RECORDS SUMMARY | 2024-10-16 08:22 | XMS_ITS | Clinical Summary ---
Author Organization [employer] [facility] Address [address] [place] [address] Care Team Providers Care Binder Coverstitch Name Role Phone Heath Loo MD Primary Care Provider + Erickson Jean MD Unavailable Unavailable Adriana Castro MD Unavailable Unavailable Allergies Active Allergy Reactions Criticality Noted Date Comments Cephalexin 02/26/2004 Medications albuterol (PROVENTIL HFA, VENTOLIN HFA) 90 mcg/act Aero Soln 10/05/19 19 Active SYMBICORT 160-4.5 MCG/ACT Aerosol 10/31/19 19 Active ATROVENT HFA 17 MCG/ACT Aero Soln 11/05/19 19 Active lisinopril (PRINIVIL, ZESTRIL) 5 MG Tab 11/04/19 19 Active montelukast (SINGULAIR) 10 MG Tab 11/05/19 19 Active omeprazole (PRILOSEC) 40 MG Capsule Delayed Release 09/21/19 19 Active ondansetron (ZOFRAN ODT) 4 MG Tablet Dispersible 09/07/19 19 Active spironolactone (ALDACTONE) 25 MG Tab 11/05/19 19 Active sumatriptan (IMITREX) 100 MG Tab 11/05/19 19 Active promethazine (PHENERGAN) 25 MG SupposIndicatio ns:Cyclic vomiting syndrome Place 1 Suppository rectally every 6 hours as needed for nausea/vomitin g. 20 Suppository 03/24/19 20 Active ZOLOFT 100 MG OR TABS 200mg daily 30 0 08/13/19 04 Suspended Active Problems No known active problems Social History Tobacco Use Types Packs/Day Years Used Date Smoking Tobacco: Former Cigarettes 0.5 25 S tarted: 03/24/2014 Smokeless Tobacco: Never Alcohol Use Standard Drinks/Week Comments No 0 (1 standard drink = 0.6 oz pur e alcohol) Comments No Sex and Gender Information Value Date Recorded Sex Assigned at Not on file Legal Sex Female 1:46 PM PST Gender Identity Not on file Sexual Orientation Not on file Last Filed Vital Signs Vital Sign Reading Time Taken Comments Blood Pressure 151/79 03/24/2019 10:34 AM PST Pulse 84 03/24/2019 10:34 AM PST Temperature 36.8 C (98.3 F) 03/24/2019 10:34 AM PST Respiratory Rate 18 03/24/2019 10:34 AM PST Oxygen Saturation 97% 03/24/2019 10:34 AM PST Inhaled Oxygen Concentration - - Weight 117.9 kg (260 lb) 03/24/2019 10:34 AM PST Height 162.6 cm (5' 4 ) 03/24/2019 10:34 AM PST Body Mass Index 44.63 03/24/2019 10:34 AM PST Plan of Treatment Not on file Insurance [facility] [employer] [facility] [facility] HEALTH BENEFIT PLAN Care Teams Binder Coverstitch Relationship Specialty Start Date End Date Heath Loo MD PCP - General 11/13/08 Erickson Jean MD [place] 02/08/10 Adriana Castro MD ADDRESS REMOVED BY REQUEST 02/08/10
--- OUTSIDE RECORDS SUMMARY | 2024-10-16 08:24 | XMS_ITS | Encounter Summary ---
Author Organization [employer] [facility] Address [address] [place] [address] Care Team Providers Care Calender Machine Operator Helper Name Role Phone Joyce MarcosP Primary Care Provider [phone] Melvin Padilla Primary Care Provider [phone] Joyce Marcos [facility] Primary Care Provider [phone]- [phone] Reason for Referral * Ultrasound (Routine) - Closed Specialty Diagnoses / Procedures Referred By Mario Alberto li Referred To Contact Radiology Diagnoses Postmenopausal bleeding Procedures US Pelvis Complete and US Non OB Transvaginal Colt Trujillo MD [address] [facility] [address] [place] [address] Phone: tel: fax: [facility] [address] [place] [address] Phone: tel: fax: Referral ID Status Reason Start Date Expiration Date Visits Re quested Visits Authorized [id number] Closed 05/27/2018 05/27/2019 1 1 Encounter Details Date Type Department Care Team (Latest Contact Info) Description 05/27/2018 Order Instrument Engineer [facility] [address] [place] [phone] Colt Trujillo MD [address] [facility] [address] [place] [address] Postmenopausal bleeding (Primary Dx) Social History Tobacco Use Types Packs/Day Years Used Date Smoking Tobacco: Former Cigarettes 2 35 1 03/09/1979 - 01/07/2015 Smokeless Tobacco: Never Alcohol Use Standard Drinks/Week Comments Yes 0 (1 standard drink = 0.6 oz pur e alcohol) 4x / yr Comments No Sex and Gender Information Value Date Recorded Sex Assigned at Female 03/28/2023 12:41 PM PST Legal Sex Female 11:55 AM PDT Gender Identity Cis or Cisgender 03/28/2023 12:4 1 PM PST Sexual Orientation Straight 03/28/2023 12 :41 PM PST documented as of this encounter Functional Status * Patient's Vision Adequate to Safely Complete Daily Activities Answer Date of Assessment Author Yes 10/30/2017 5:00 PM PDT Ayan Alexandra RN * Patient's Judgement Adequate to Safely Complete Daily Activities Answer Date of Assessment Author Yes 10/30/2017 5:00 PM PDT Ayan Alexandra RN documented as of this encounter Mental Status * Patient's Memory Adequate to Safely Complete Daily Activities Answer Entry Date Author Yes 10/30/2017 5:00 PM PDT Ayan Alexandra RN documented in this encounter Plan of Treatment Not on file documented as of this encounter Results * US Pelvis Complete and US Non OB Transvaginal (05/30/2018 2:03 PM PDT) Anatomical Region Laterality Modality Pelvis Ultrasound Impressions 05/30/2018 3:31 PM PDT Prominent endometrial stripe for postmenopausal patient measuring 6.2 mm. Clinical correlation recommended to exclude the possibility of neoplastic process. Rug Hooker Hand: Tosha Carrion Instrument Engineer Time: 05/30/2018 3:07 PM Reading Workstation ID: [id number] Narrative 05/30/2018 3:31 PM PDT Exam date: 05/30/2018 1:32 PM Referring provider: COLT TRUJILLO PELVIC ULTRASOUND CLINICAL HISTORY: Pelvic pain. Postmenopausal bleeding. Right oophorectomy. COMPARISON: No relevant comparisons are available at the time of dictation. TECHNIQUE: Hernandez scale, color-flow and Doppler ultrasound was performed. Transabdominal and transvaginal sonography was performed. FINDINGS: The uterus is in anteverted position measuring 8.3 x 2.1 x 5.1 cm. No uterine fibroid is noted. The endometrial stripe is prominent measuring 6.2 mm. Status post right oophorectomy. Left ovary is unremarkable measuring 2.3 x 1.6 x 2 cm. Normal blood flow is seen in both ovaries. No free fluid or abnormal adnexal mass is seen. Procedure Note Philipp Manzo MD - 05/30/2018 Exam date: 05/30/2018 1:32 PM Referring provider: COLT TRUJILLO PELVIC ULTRASOUND CLINICAL HISTORY: Pelvic pain. Postmenopausal bleeding. Rightoophorectomy. COMPARISON: No relevant comparisons are available at the time ofdictation. TECHNIQUE: Hernandez scale, color-flow and Doppler ultrasound was performed.Transabdominal and transvaginal sonography was performed. FINDINGS: The uterus is in anteverted position measuring 8.3 x 2.1 x 5.1cm. No uterine fibroid is noted. The endometrial stripe is prominentmeasuring 6.2 mm. Status post right oophorectomy. Left ovary isunremarkable measuring 2.3 x 1.6 x 2 cm. Normal blood flow is seen in both ovaries. No free fluid or abnormal adnexalmass is seen. IMPRESSION: Prominent endometrial stripe for postmenopausal patient measuring 6.2 mm.Clinical correlation recommended to exclude the possibility of neoplasticprocess. Rug Hooker Hand: Tosha Carrion Instrument Engineer Time: 05/30/2018 3:07 PM Reading Workstation ID: [id number] us Colt Trujillo MD [facility] US ORDERABLES Final Result documented in this encounter Visit Diagnoses Diagnosis Postmenopausal bleeding- Primary Postmenopausal bleeding documented in this encounter Care Teams Calender Machine Operator Helper Relationship Specialty Start Date End Date Joyce Marcos ARNP [address] [facility] [address] [place] [address] PCP - General Nurse Practitioner 12/22/17 02/21/19 Melvin Padilla ARNP [address] [facility] [address] [facility] [address] [place] [address] PCP - General Nurse Practitioner 02/22/19 07/14/20 Joyce Marcos [facility]NP [address] [facility] [address] [place], [place] [address] PCP - General Nurse Practitioner 07/15/20 documented as of this encounter
--- OUTSIDE RECORDS SUMMARY | 2024-10-16 08:24 | XMS_ITS | Encounter Summary ---
Author Organization [employer] [facility] Address [address] [place] [address] Care Team Providers Care Harvesting Manager Name Role Phone Samanta Tanner [facility] Primary Care Provider Vibha Wagoner [facility] Primary Care Provider [phone] Joyce Marcos [facility] Primary Care Provider [phone] Melvin Padilla [facility] Primary Care Provider [phone] Joyce Marcos [facility] Primary Care Provider [phone] Reason for Referral * Consultation (Routine) - Closed Specialty Diagnoses / Procedures Referred By Contaubrey li Referred To Contact Gastroenterology Diagnoses Projectile vomiting with nausea Cristal Bah MD Phone: tel: fax: [facility] [address], [address] [place] [address] Phone: tel: fax: Referral ID Status Reason Start Date Expiration Date V isits Requested Visits Authorized [id number] Closed Specialty Services Required 10/13/2017 10/13/2018 1 1 Encounter Details Date Type Department Care Team (Latest Contact Info) Description 10/13/2017 Order Ophthalmology Surgical Technician [facility] [address] [place] [address], [address] [place] [address] Cristal Bah MD [address] [place] [phone] Vomiting without nausea, intractability of vomiting not specified, unspecified vomiting type (Primary Dx); Projectile vomiting with nausea Social History Tobacco Use Types Packs/Day Years [...] Activities Answer Date of Assessment Author Yes 10/09/2017 10:57 PM PDT Alyssa Hopson RN * Patient's Judgement Adequate to Safely Complete Daily Activities Answer Date of Assessment Author Yes 10/09/2017 10:57 PM PDT Alyssa Hopson RN documented as of this encounter Mental Status * Patient's Memory Adequate to Safely Complete Daily Activities Answer Entry Date Author Yes 10/09/2017 10:57 PM PDT Alyssa Hopson RN documented in this encounter Plan of Treatment Scheduled Referrals Name Type Priority Associated Diagnoses Order Schedule Ambulatory referral to Gastroenterology Outpatient Referral Routine Projectile vomiting with nausea Ordered: 10/13/2017 documented as of this encounter Visit Diagnoses Diagnosis Vomiting without nausea, intractability of vomiting not specified, unspecified vomiting type- Primary Projectile vomiting with nausea documented in this encounter Care Teams Harvesting Manager Relationship Specialty Start Date End Date Samanta Tanner ARNP PCP - General Nurse Practitioner 08/02/17 10/28/17 Vibha Wagoner ARNP PCP - General Family Medicine 10/29/17 12/21/17 Joyce Marcos ARNP [address] [facility] [address] [place], [place] [address] PCP - General Nurse Practitioner 12/22/17 02/21/19 Melvin Padilla ARNP [address] [facility] [address] [place], [place] [address] PCP - General Nurse Practitioner 02/22/19 07/14/20 Joyce Marcos ARNP [address] [facility] [address] [place], [place] [address] PCP - General Nurse Practitioner 07/15/20 documented as of this encounter
--- OUTSIDE RECORDS SUMMARY | 2024-10-16 08:24 | XMS_ITS | Encounter Summary ---
Author Organization [facility] Address [address] [place] [address] Phone Care Team Providers Care Gift Shop Clerk Name Role Phone Hunter Sotomayor Primary Care Provider + Hiro Eldridge MD Primary Care Provider [phone] Encounter Details Date Type Department Care Team (Late st Contact Info) Description 06/12/2022 Procedure Pass [facility] Scan - [address] [address] Social History Tobacco Use Types Packs/Day Years Used Date Smoking Tobacco: Former Cigarettes Q uit: 2013 Smokeless Tobacco: Never Alcohol Use Standard Drinks/Week Comments Not Currently 0 (1 standard drink = 0.6 oz pur e alcohol) rarely Comments Unknown Sex and Gender Information Value Date Recorded Sex Assigned at Female 06/06/2020 6:56 AM EDT Legal Sex Female 2:14 PM EST Gender Identity Female 06/06/2020 6:56 AM EDT Sexual Orientation Straight 05/22/2021 4: 12 PM EDT documented as of this encounter Functional Status * Calculated C-SSRS Risk Score (Lifetime/Recent) Answer Date of Assessment Author No Risk Indicated 06/12/2022 9:20 AM EDT Camille Rose, RN * [place] Suicide Severity Rating Scale (Screener/Recent Self-Report) Question Answer Date of Assessment Author 1. Wish to be (Past 1 Month) No 023 9:20 AM EDT Camille Rose, RN 2. Non-Specific Active Suici selina Thoughts (Past 1 Month) No 06/12/2022 9:20 AM EDT Camille Rose RN 6. Suicidal Behavior (Lifetime) No 3 9:20 AM EDT Camille Rose RN documented as of this encounter Plan of Treatment Upcoming Encounters Date Type Department Care Team (Late st Contact Info) Description 08/14/2025 10:00 AM EDT Office Visit [facility] [place] [address] [facility] [address] [place] [address] Marcin Alaniz MD, PhD [address] [place] [address] [place] [address] [email or web address] documented as of this encounter Visit Diagnoses Not on filedocumented in this encounter Care Teams Gift Shop Clerk Relationship Specialty Start Date End Date Hunter Sotomayor PA [address] [place] [id number] PCP - General 10/07/21 01/21/23 Hiro Eldridge MD [address] [place] [phone] PCP - General Internal Medicine 01/22/23 documented as of this encounter Additional Source Comments The information contained in this document represents components of the legal health record. It is not the complete legal health record.[facility]
--- OUTSIDE RECORDS SUMMARY | 2024-10-16 08:24 | XMS_ITS | Clinical Summary ---
Author Organization [employer] [facility] Address [address] [place] [address] Care Team Providers Care Sr. Vendor Management Associate Name Role Phone Priti Joyceminda VALLECILLO Primary Care Provider [phone] Allergies Active Allergy Reactions Criticality Noted Date Comments Cephalexin Hcl Swelling 02/15/2016 Cephalexin Anaphylaxis,Hives,Sh ortness Of Breath,Nausea And Vomiting,Swelling,Rash High 02/26/2004 Oxycodone Itching Low 07/07/2015 Medications SYMBICORT 160-4.5 mcg/actuation inhaler INHALE TWO PUFFS BY MOUTH TWICE DAILY 33 g 3 7 Active omeprazole (PRILOSEC) 40 MG capsule Take 1 capsule (40 mg total) by mouth once daily. 90 capsule 7 Active montelukast (SINGULAIR) 10 mg tablet TAKE ONE TABLET BY MOUTH ONE TIME DAILY 30 tablet 2 7 Active SUMAtriptan (IMITREX) 100 MG tablet Take 1 tablet (100 mg total) by mouth every 2 (two) hours as needed for migraine. Maximum 2 tablets in 24 hours Active lisinopriL (PRINIVIL,ZESTRI L) 10 MG tablet Take 1 tablet (10 mg total) by mouth once daily. Active famotidine (PEPCID) 40 MG tablet Take 1 tablet (40 mg total) by mouth 2 (two) times a day. Active lamoTRIgine (LaMICtal) 25 MG tablet Take 1 tablet (25 mg total) by mouth once daily. Active tiotropium (SPIRIVA) 18 mcg inhalation capsule Inhale 18 mcg into the lungs once daily. Active diazePAM (VALIUM) 5 MG tablet Take 1 tablet (5 mg total) by mouth once nightly as needed for sleep. Active albuterol sulfate hfa 90 mcg/actuation aerosol inhaler Inhale 2 puffs into the lungs every 6 (six) hours as needed for wheezing or shortness of breath. Active DULoxetine (CYMBALTA) 30 MG capsule Take 2 capsules (60 mg total) by mouth once daily. Active sertraline (ZOLOFT) 100 MG tablet Take 2 tablets (200 mg total) by mouth once daily. 3 Active scopolamine (TRANSDERM-SCOP) patch 1.5 mg (DELIVERS 1 MG OVER 3 DAYS) Place 1 patch onto the skin every third day. Active benzonatate (TESSALON) 200 MG capsuleIndicatio ns:Viral respiratory illness Take 1 capsule (200 mg total) by mouth 3 (three) times a day as needed for cough. 20 capsule 3 Active predniSONE (DELTASONE) 10 MG tablet Take 6 tabs daily x3 days, then 4 tabs daily x3 days, then 2 tabs daily x3 days, then 1 tab daily x3 days, then stop, 42 tabs total } 42 tablet 4 Active azithromycin (Zithromax Z-Geovanny) 250 MG tablet Take 2 tablets (500 mg) on Day 1, followed by 1 tablet (250 mg) once daily on Days 2 through 5. Generic ok 6 tablet 4 Active Hospital, Clinic, or Other Facility Administered Medication Ordered Dose Route Frequency Start Date End Date Status Promethazine Injectable INTRAMUSCULAR ONLYIndications:Cyclic al vomiting 12.5 - 25 mg IM Every 4 hours PRN 04/13/2021 Acti ve Active Problems Problem Noted Date Diagnosed Date Intractable vomiting 07/14/2020 Hypokalemia 07/14/2020 Nausea & vomiting 11/01/2017 Migraine without status migrainosus, not intract able 10/30/2017 Intractable cyclical vomiting with nausea 2017 Amphetamine abuse 10/29/2017 Morbid obesity with BMI of 45.0-49.9, adult 09/2017 Intractable vomiting with nausea 10/09/2017 Intractable nausea and vomiting 10/09/2017 Unstable angina 09/21/2017 Sleep apnea, unspecified 03/21/2017 Morbid obesity 10/12/2015 Primary hypertension 07/07/2015 Diverticulosis 12/05/2013 Pincer nail deformity 10/08/2013 Carpal tunnel syndrome 10/02/2013 GERD (gastroesophageal reflux disease) 4 Depressive disorder, not elsewhere classified Chronic obstructive pulmonary disease Atypical chest pain Abnormal stress test Abrasion of back Marijuana use Sinus tachycardia Hyponatremia Hyperglycemia Depression with anxiety Resolved Problems Problem Noted Date Diagnosed Date Resolved Date Encounter for screening for malignant neoplasm of colon 10/26/2016 09/20/2017 Overview (10/26/2016): Added automatically from request for surgery [id number] Elevated glycated hemoglobin 02/15/2016 09/20/2017 Tobacco use 07/07/2015 10/06/2015 Unstable angina 03/08/2014 09/20/2017 Gastroenteritis 12/06/2013 01/07/2014 Benign hypertension 12/05/2013 09/21/19 18 Other and unspecified ovarian cyst 10/02/2013 10/08/2013 Anemia, unspecified 10/02/2013 10/09/19 14 Nausea alone 10/02/2013 10/08/2013 Headache(784.0) 10/02/2013 10/08/2013 Impaired fasting glucose 10/02/2013 Dermatitis 10/02/2013 10/08/2013 Unspecified disorder of thyroid 10/02/2013 10/08/2013 Unspecified vitamin D deficiency 10/02/2013 10/08/2013 Cellulitis 10/02/2013 10/08/2013 Left flank pain 10/02/2013 10/08/2013 Common migraine 10/02/2013 10/08/2013 Migraine 10/30/2017 Chest pain 09/20/2017 BONIFACIO (acute kidney injury) Secondary hypertension 09/20 Lower abdominal pain 018 Immunizations Name Administration Dates Next Due Influenza Four-QIV PF 3+YR IM 11/21/2016 Influenza Intradermal,Seasonal,Preservative Free 10/29/2017 Influenza Three-TIV Preservative Free 3+ Years I M 12/05/2013 Pneumococcal Polysaccharide (Pneumovax) 12/06/19 14 Family History Medical History Relation Name Comments Diabetes Father Heart disease Father Kidney disease Father Stroke Father Heart disease Mother Stroke Mother Relation Name Status Comments Father Mother Social History Tobacco Use Types Packs/Day Years Used Date Smoking Tobacco: Former Cigarettes 2 35 0 02/21/1979 - 02/21/2014 Smokeless Tobacco: Never Tobacco Cessation:Counseling Given: Not Answered Alcohol Use Standard Drinks/Week Comments Yes 0 (1 standard drink = 0.6 oz pur e alcohol) 4 times yearly Comments No Sex and Gender Information Value Date Recorded Sex Assigned at Female 03/28/2023 12:41 PM PST Legal Sex Female 11:55 AM PDT Gender Identity Cis or Cisgender 03/28/2023 12:4 1 PM PST Sexual Orientation Straight 03/28/2023 12 :41 PM PST Last Filed Vital Signs Vital Sign Reading Time Taken Comments Blood Pressure 111/62 03/21/2023 3:00 PM PST Pulse 83 11/15/2022 12:01 PM PDT Temperature 37 C (98.6 F) 03/21/2023 1:40 PM PST Respiratory Rate 24 03/21/2023 1:40 PM PST Oxygen Saturation 96% 03/21/2023 3:00 PM PST Inhaled Oxygen Concentration - - Weight 119 kg (262 lb 5.6 oz) 03/21/2023 1:39 PM PST Height 162.6 cm (5' 4 ) 03/21/2023 1:39 PM PST Body Mass Index 45.03 03/21/2023 1:39 PM PST Plan of Treatment Health Maintenance Due Date Last Done Comments CT Colonography 1960 FOBT 1962 Fit-DNA 1960 Sigmoidoscopy 1960 HIV Screening 1977 Hepatitis C Screening 1980 DTAP/TDAP/TD VACCINES (1 - Tdap) 1981 SHINGLES VACCINES (1 of 2) 2012 Pneumococcal 50+ years (2 of 2 - PCV) 12/05/2014 12/05/2013 CCS PAP ONLY EVERY 3 YEARS ( Age 21-65) 07/12/2018 07/13/2015 (Declined) Lipid Panel 09/21/2020 09/21/2017, 10/17/2013 Breast Cancer Screening 04/20/2021 04/20/19 20, 07/13/2015 (Declined) Respiratory Syncytial Virus (RSV) Adult or (1 - Risk 60-74 years 1-dose series) 2022 COVID-19 VACCINE (1 - 2023-2 5 season) 2023 Tobacco Cessation and Corale brisa (12+) 02/22/2024 03/28/2023 Influenza Vaccine (#1) 2024 8, 11/29/2016, 11/21/2016, Additional history exists Colon Cancer Screening 11/04/2026 Colonoscopy 11/04/2026 11/04/2016 Procedures Procedure Name Priority Date/Time Associated Diagnosis Comments MAMMO DIGITAL 3D SCREENING BILATERAL Routine 04/20/2019 9:04 AM PST Screening mammogram, encounter for LIPID PANEL Early AM 09/21/2017 12:38 AM PDT SCREENING COLONOSCOPY - NON-HIGH RISK Routine 11/04/2016 9:09 AM PDT from Last 3 Months or Most Recently Relevant to Health Maintenance Results * Mammo Digital 3D Screening Bilateral (04/20/2019 9:04 AM PST) Anatomical Region Laterality Modality Breast Bilateral Mammography 04/20/2019 8:45 AM PST Impressions 04/25/2019 10:53 AM PST NEGATIVE - BIRAD 1 There is no mammographic evidence of malignancy. A 1 year screening mammogram is recommended. Patient information entered into a reminder system with a target due date for the next Mammogram. The patient was notified of the results. Comment: The lack of radiographic evidence of malignancy should not deter the evaluation of a clinically evident breast abnormality. Dense breast parenchyma may obscure a breast malignancy. 15-20% of breast malignancies are mammographically occult. George Saravia M.D., rp/brianna:04/25/2019 10:53:39 copy to: Melvin VALLECILLO, [facility], fax: [phone] letter sent: Normal Letter A-B-C Mammogram BI-RADS: 1 Negative Narrative 04/25/2019 10:53 AM PST - MAMMO DIGITAL 3D SCREENING BILATERAL BILATERAL DIGITAL SCREENING MAMMOGRAM AND TOMOSYNTHESIS WITH CAD: 04/20/2019 CLINICAL HISTORY: Asymptomatic. Prior mammograms done over 10 years ago, new baseline. No family history of breast cancer. Digital mammography views were performed including tomosynthesis. COMPARISON: Comparison is made to exam dated: 01/31/2009 mammogram - [facility]. FINDINGS: The breast composition of both breasts is scattered fibroglandular densities. Current study was also evaluated with a Computer Aided Detection (CAD) system. No significant masses, calcifications, or other findings are seen in either breast. There has been no significant interval change. Procedure Note George Saravia MD - 04/25/2019 - MAMMO DIGITAL 3D SCREENING BILATERAL BILATERAL DIGITAL SCREENING MAMMOGRAM AND TOMOSYNTHESIS WITH CAD:04/20/2019 CLINICAL HISTORY: Asymptomatic. Prior mammograms done over 10 years ago,new baseline. No family history of breast cancer. Digital mammography views were performed including tomosynthesis. COMPARISON: Comparison is made to exam dated: 01/31/2009 mammogram -[facility]. FINDINGS: The breast composition of both breasts is scatteredfibroglandular densities. Current study was also evaluated with a Computer Aided Detection (CAD)system. No significant masses, calcifications, or other findings are seen ineither breast. There has been no significant interval change. IMPRESSION: NEGATIVE - BIRAD 1 There is no mammographic evidence of malignancy. A 1 year screeningmammogram is recommended. Patient information entered into a reminder system with a target due datefor the next Mammogram. The patient was notified of the results. Comment: The lack of radiographic evidence of malignancy should not deterthe evaluation of a clinically evident breast abnormality. Dense breastparenchyma may obscure a breast malignancy. 15-20% of breast malignanciesare mammographically occult. George Saravia M.D., rp/brianna:04/25/2019 10:53:39 copy to: Melvin VARGASP, [facility], fax:[phone] letter sent: Normal Letter A-B-C Mammogram BI-RADS: 1 Negative Colt Trujillo MD IM MAMMOGRAPHY ORDERABLES Monique l Result * (ABNORMAL) Lipid panel (09/21/2017 12:38 AM PDT) Cholesterol 166 0 - 199 mg/dL 09/21/2017 9:16 AM PDT [facility] Triglycerides 104 0 - 149 mg/dL 09/21/2017 9:16 AM PDT [facility] HDL Cholesterol 38(L) 40 - 90 mg/dL 09/21/2017 9:16 AM PDT [facility] Chol/HDL-C Ratio 4.4 0.0 - 5.0 09/22/19 9:16 AM PDT [facility] LDL Cholesterol 107 0 - 130 mg/dL 09/21/2017 9:16 AM PDT [facility] LDL, HDL-C Ratio 2.8 (No normals established ) 09/21/2017 9:16 AM PDT [facility] Non HDL Cholesterol,Calc 128 0 - 159 mg/dL 09/21/2017 9:16 AM PDT [facility] Blood Venipuncture / Unknown 09/21/2017 12:38 AM PDT 09/21/2017 12:42 AM PDT Narrative [facility] - 09/21/2017 9:16 AM PDT HDL Cholesterol Interpretation: >=60 mg/dL Cardiovascular Risk: Low <40 mg/dL Cardiovascular Risk: High Triglycerides Reference Ranges: <150 mg/dL Normal 150-199 mg/dL Borderline high 200-499 mg/dL High >500 mg/dL Very high Non HDL Cholesterol Interpretation: <130 mg/dL CHD and CHD risk equivalents <160 mg/dL Multiple (2+) risk factors <190 mg/dL Zero to one risk factor Non-HDL Cholesterol is a secondary target of therapy in persons with high serum Triglycerides (>199 mg/dL). The goal for non-HDL Cholesterol in persons with high Triglyceride is 30 mg/dL higher than their LDL Cholesterol goal us Esther Kaplan MD LAB BLOOD ORDERABLES Final Resul t [facility] [address] [place] [id number] [phone] * Screening Colonoscopy - Non-High Risk (11/04/2016 9:09 AM PDT) 11/04/2016 9:09 AM PDT Impressions [facility] - 11/04/2016 9:46 AM PDT : - Normal mucosa in the entire examined colon. Biopsied. - Diverticulosis in the sigmoid colon, in the descending colon, in the transverse colon and in the ascending colon. Recommendation: - Await pathology results. - Return to primary care physician as previously scheduled. - Suggest repeat colonoscopy in 10 years for average risk screening. Symptoms such as bleeding, family history, change in bowel habits may warrant sooner reevaluation and should be discussed with your primary care provider. Procedure Code(s): --- Professional --- 78715, Colonoscopy, flexible; with biopsy, single or multiple Diagnosis Code(s): --- Professional --- Z12.11, Encounter for screening for malignant neoplasm of colon K57.30, Diverticulosis of large intestine without perforation or abscess without bleeding CPT copyright 2014 [employer]. All rights reserved. The codes documented in this report are preliminary and upon pie maker machine review may be revised to meet current compliance requirements. MD Jasmyn Farah MD 11/04/2016 9:45:48 AM This document has been electronically signed. Number of Addenda: 0 Note Initiated On: 11/04/2016 9:09 AM Procedure/Sedation Begin: 9:13:54 AM Procedure/Sedation Complete: 9:35:37 AM Narrative [facility] - 11/04/2016 9:[address] [facility] Patient Name: Silvina Velázquez Procedure Date: 11/04/2016 9:09 AM Date of : 1960 Admit Type: Ambulatory Age: 56 Room: [facility] Gender: Female Attending MD: Jasmyn Jordan MD Procedure: Colonoscopy Indications: Screening for colorectal malignant neoplasm, Incidental diarrhea noted Providers: Jasmyn Jordan MD Referring MD: Requesting Provider: Medicines: Midazolam 6 mg IV, Fentanyl 150 micrograms IV, Diphenhydramine 25 mg IV Complications: No immediate complications. Procedure: Pre-Anesthesia Assessment: - Prior to the procedure, a History and Physical was performed, and patient medications and allergies were reviewed. The patient is competent. The risks and benefits of the procedure and the sedation options and risks were discussed with the patient. All questions were answered and informed consent was obtained. Patient identification and proposed procedure were verified by the physician and the nurse in the procedure room. Mental Status Examination: alert and oriented. Airway Examination: normal oropharyngeal airway and neck mobility. Respiratory Examination: clear to auscultation. CV Examination: normal. ASA Grade Assessment: II - A patient with mild systemic disease. After reviewing the risks and benefits, the patient was deemed in satisfactory condition to undergo the procedure. The anesthesia plan was to use moderate sedation / analgesia (conscious sedation). Immediately prior to administration of medications, the patient was re-assessed for adequacy to receive sedatives. The heart rate, respiratory rate, oxygen saturations, blood pressure, adequacy of pulmonary ventilation, and response to care were monitored throughout the procedure. The physical status of the patient was re-assessed after the procedure. - Prior to the procedure, a History and Physical was performed, and patient medications and allergies were reviewed. The patient is competent. The risks and benefits of the procedure and the sedation options and risks were discussed with the patient. All questions were answered and informed consent was obtained. Patient identification and proposed procedure were verified by the physician and the nurse in the procedure room. Mental Status Examination: alert and oriented. Airway Examination: normal oropharyngeal airway and neck mobility. Respiratory Examination: clear to auscultation. CV Examination: normal. ASA Grade Assessment: II - A patient with mild systemic disease. After reviewing the risks and benefits, the patient was deemed in satisfactory condition to undergo the procedure. The anesthesia plan was to use moderate sedation / analgesia (conscious sedation). Immediately prior to administration of medications, the patient was re-assessed for adequacy to receive sedatives. The heart rate, respiratory rate, oxygen saturations, blood pressure, adequacy of pulmonary ventilation, and response to care were monitored throughout the procedure. The physical status of the patient was re-assessed after the procedure. A brief history and physical examination was performed. The procedure, indications and potential complications (to include, but not limited to, bleeding, perforation, infection and adverse medication reaction), and alternative measures were explained to the patient who appeared to understand and indicated so. The possibility of a missed lesion or misdiagnosed condition was discussed. An opportunity for questions was provided and informed consent signed. The risk and potential use of blood products were discussed. See Nurses Notes for conscious sedation parameters. Throughout the procedure, the patient's blood pressure, pulse, and oxygen saturations were monitored continuously. The [id number]-[id number] was introduced through the anus and advanced to the the cecum, identified by appendiceal orifice and ileocecal valve. The colonoscopy was performed without difficulty. The patient tolerated the procedure well. The quality of the bowel preparation was adequate to identify polyps. Findings: The digital rectal exam was normal. Normal mucosa was found in the entire colon. Biopsies for histology were taken with a cold forceps from the entire colon for evaluation of microscopic colitis. Diverticula were found in the sigmoid colon, in the descending colon, in the transverse colon and in the ascending colon. No additional abnormalities were found on retroflexion. Procedure Note Jasmyn Jordan MD - 11/04/2016 [facility] Patient Name: Silvina Velázquez Procedure Date: 11/04/2016 9:09 AM Date of : 1960 Admit Type: Ambulatory Age: 56 Room: [facility] Gender: Female Attending MD: Jasmyn Jordan MD Procedure: Colonoscopy Indications: Screening for colorectal malignant neoplasm,Incidental diarrhea noted Providers: Jasmyn Jordan MD Referring MD: Requesting Provider: Medicines: Midazolam 6 mg IV, Fentanyl 150 micrograms IV, Diphenhydramine 25 mg IV Complications: No immediate complications. Procedure: Pre-Anesthesia Assessment: - Prior to the procedure, a History and Physical was performed, and patient medications and allergies were reviewed. The patient is competent. The risks and benefits of the procedure and the sedation optionsand risks were discussed with the patient. All questions were answered and informed consent was obtained.Patient identification and proposed procedure were verifiedby the physician and the nurse in the procedure room. Mental Status Examination: alert and oriented. Airway Examination: normal oropharyngeal airway and neck mobility. Respiratory Examination: clear to auscultation. CV Examination: normal. ASA Grade Assessment: II - A patient with mild systemicdisease. After reviewing the risks and benefits, the patientwas deemed in satisfactory condition to undergo the procedure. The anesthesia plan was to use moderate sedation / analgesia (conscious sedation).Immediately prior to administration of medications, the patientwas re-assessed for adequacy to receive sedatives. Theheart rate, respiratory rate, oxygen saturations, blood pressure, adequacy of pulmonary ventilation, and response to care were monitored throughout the procedure. The physical status of the patient was re-assessed after the procedure. - Prior to the procedure, a History and Physical was performed, and patient medications and allergies were reviewed. The patient is competent. The risks and benefits of the procedure and the sedation optionsand risks were discussed with the patient. All questions were answered and informed consent was obtained.Patient identification and proposed procedure were verifiedby the physician and the nurse in the procedure room. Mental Status Examination: alert and oriented. Airway Examination: normal oropharyngeal airway and neck mobility. Respiratory Examination: clear to auscultation. CV Examination: normal. ASA Grade Assessment: II - A patient with mild systemicdisease. After reviewing the risks and benefits, the patientwas deemed in satisfactory condition to undergo the procedure. The anesthesia plan was to use moderate sedation / analgesia (conscious sedation).Immediately prior to administration of medications, the patientwas re-assessed for adequacy to receive sedatives. Theheart rate, respiratory rate, oxygen saturations, blood pressure, adequacy of pulmonary ventilation, and response to care were monitored throughout the procedure. The physical status of the patient was re-assessed after the procedure. A brief history and physical examination wasperformed. The procedure, indications and potentialcomplications (to include, but not limited to, bleeding,perforation, infection and adverse medication reaction), and alternative measures were explained to the patientwho appeared to understand and indicated so. Thepossibility of a missed lesion or misdiagnosed condition was discussed. An opportunity for questions was providedand informed consent signed. The risk and potential useof blood products were discussed. See Nurses Notes for conscious sedation parameters. Throughout theprocedure, the patient's blood pressure, pulse, and oxygen saturations were monitored continuously. ThePCF-H190DL [id number] was introduced through the anus and advancedto the the cecum, identified by appendiceal orifice and ileocecal valve. The colonoscopy was performedwithout difficulty. The patient tolerated the procedure well. The quality of the bowel preparation was adequate to identify polyps. Findings: The digital rectal exam was normal. Normal mucosa was found in the entire colon. Biopsies for histologywere taken with a cold forceps from the entire colon for evaluation of microscopic colitis. Diverticula were found in the sigmoid colon, in the descending colon,in the transverse colon and in the ascending colon. No additional abnormalities were found on retroflexion. Impression : - Normal mucosa in the entire examined colon. Biopsied. - Diverticulosis in the sigmoid colon, in thedescending colon, in the transverse colon and in the ascending colon. Recommendation: - Await pathology results. - Return to primary care physician as previously scheduled. - Suggest repeat colonoscopy in 10 years for average risk screening. Symptoms such as bleeding, family history, change in bowel habits may warrant sooner reevaluation and should be discussed with yourprimary care provider. Procedure Code(s): --- Professional --- 71232, Colonoscopy, flexible; with biopsy, single or multiple Diagnosis Code(s): --- Professional --- Z12.11, Encounter for screening for malignantneoplasm of colon K57.30, Diverticulosis of large intestine without perforation or abscess without bleeding CPT copyright 2014 [employer]. All rights reserved. The codes documented in this report are preliminary and upon pie maker machine reviewmay be revised to meet current compliance requirements. MD Jasmyn Farah MD 11/04/2016 9:45:48 AM This document has been electronically signed. Number of Addenda: 0 Note Initiated On: 11/04/2016 9:09 AM Procedure/Sedation Begin: 9:13:54 AM Procedure/Sedation Complete: 9:35:37 AM Jasmyn Jodran MD GI PROCEDURE ORDERABLES Final Result Performing Organization Address City/State/[facility] Co de Phone Number [facility] from Last 3 Months or Most Recently Relevant to Health Maintenance Insurance [address] [place] [address] [facility] [facility] [employer] MEDICAID MEDICAID OUT OF STATE Advance Directives Documents on File Type Date Recorded Patient Synchronizer Expl anation Power of Attorneys 09/21/2017 Ryan Maya * Full Code (Latest Code Status on File) Date Activated Date Inactivated Comments 04/13/2021 2:46 PM 04/17/2021 7:55 PM Question Answer Comments This code status was determined by: Patient * Full Code Date Activated Date Inactivated Comments 07/14/2020 5:15 PM 07/16/2020 3:02 PM Question Answer Comments This code status was determined by: Patient * Full Code Date Activated Date Inactivated Comments 10/29/2017 8:52 AM 11/01/2017 4:41 PM Question Answer Comments This code status was determined by: Patient * Full Code Date Activated Date Inactivated Comments 10/09/2017 11:30 PM 10/13/2017 3:28 PM Question Answer Comments This code status was determined by: Patient * Full Code Date Activated Date Inactivated Comments 09/21/2017 12:54 PM 09/21/2017 9:12 PM Question Answer Comments This code status was determined by: Patient Healthcare Agents on File Name Relationship Healthcare Agent Relationship Communication Beverly Pascual Daughter Health Care Agent Care Teams Sr. Vendor Management Associate Relationship Specialty Start Date End Date Joyce Marcos ARNP [address] [facility] [address] [place] [address] PCP - General Nurse Practitioner 07/15/20
--- OUTSIDE RECORDS SUMMARY | 2024-10-16 08:24 | XMS_ITS | Clinical Summary ---
Author Organization [facility] Address [address] [place] [address] Care Team Providers Care Spinning Operator Name Role Phone Unavailable Primary Care Provider Unavailabl e Social History Tobacco Use Types Packs/Day Years Used Date Smoking Tobacco: Never Assessed Comments Unknown Sex and Gender Information Value Date Recorded Sex Assigned at Not on file Legal Sex Female 4:04 PM PDT Gender Identity Not on file Sexual Orientation Not on file Plan of Treatment Not on file Insurance [facility]
--- OUTSIDE RECORDS SUMMARY | 2024-10-16 08:24 | XMS_ITS | Encounter Summary ---
Author Organization [facility] Address [address] [facility] [place] [place] [address] [place] [address] Phone Care Team Providers Care Coding Analyst Name Role Phone Hunter Sotomayor Primary Care Provider + Hiro Eldridge MD Primary Care Provider [phone] Encounter Details Date Type Department Care Team (Latest Contact Info) Description 09/07/2022 Transcribe Orders [facility] [address] [place] [address] Aileen Grubbs PA [address] [place] [address] Splenomegaly (Primary Dx) Social History Tobacco Use Types Packs/Day Years Used Date Smoking Tobacco: Former Cigarettes Q uit: 2014 Smokeless Tobacco: Never Alcohol Use Standard Drinks/Week Comments Not Currently 0 (1 standard drink = 0.6 oz pur e alcohol) rarely Education Answer Date Recorded Are you interested in more education? Not on yon e 06/18/2022 Are you concerned about learning? Not on file 06/18/2022 No 06/18/2022 No 06/18/2022 Digital Access Answer Date Recorded No 07/20/2022 No 07/20/2022 Reliable internet access at home? Not on file 07/20/2022 Device with a working camera? Not on file Comments Unknown Sex and Gender Information Value Date Recorded Sex Assigned at Female 06/06/2020 6:56 AM EDT Legal Sex Female 2:14 PM EST Gender Identity Female 06/06/2020 6:56 AM EDT Sexual Orientation Straight 05/22/2021 4: 12 PM EDT documented as of this encounter Plan of Treatment Upcoming Encounters Date Type Department Care Team (Late st Contact Info) Description 08/14/2025 10:00 AM EDT Office Visit [facility] Neurology at [place] [address] [facility] [address] [place] [address] Marcin Alaniz MD, PhD [address] [place] [address] [place] [address] [email or web address] documented as of this encounter Results * Comprehensive metabolic panel (09/07/2022 2:16 PM EDT) SODIUM 140 133 - 146 mmol/L [facility] POTASSIUM 4.2 3.3 - 5.1 mmol/L [facility] CHLORIDE 104 96 - 108 mmol/L [facility] CO2 24 21 - 35 mmol/L [facility] BUN 13 6 - 19 mg/dL [facility] CREATININE 0.80 0.5 - 1.5 mg/dL [facility] GLUCOSE 96 70 - 99 mg/dL [facility] ALBUMIN 4.6 3.9 - 4.8 g/dL [facility] TOTAL PROTEIN 6.9 6.5 - 8.0 g/dL [facility] CALCIUM 9.7 8.4 - 10.3 mg/dL [facility] ALKALINE PHOSPHATASE 86 39 - 117 U/L [facility] TOTAL BILIRUBIN 0.3 0.0 - 1.2 mg/dL [facility] AST 23 0 - 37 U/L [facility] ALT 19 0 - 40 U/L [facility] GLOBULIN 2.3 1 - 4.8 g/dL [facility] EGFR 84 >59 mL/min/1.7 3m2 [facility] Comment:Estimated glomerular filtration rate calculated using the CKD-EPI refit equation. ANION GAP 16 10 - 20 mmol/L [facility] Blood 09/07/2022 2:16 PM EDT 09/07/2022 2:39 PM EDT us Aileen [facility] BLOOD ORDERABLES Final Result [facility] [address] [place] [address] * CBC and differential (09/07/2022 2:16 PM EDT) WBC 5.73 4.00 - 11.00 K/uL [facility] RBC 4.23 3.72 - 5.30 M/uL [facility] HGB 13.3 11.4 - 15.9 g/dL [facility] HCT 40.6 34.2 - 46.8 % [facility] PLT 240 140 - 430 K/uL [facility] MCV 96.0 78.0 - 97.0 fL [facility] MCH 31.4 25.0 - 33.0 pg [facility] MCHC 32.8 32.0 - 36.0 g/dL [facility] RDW 12.3 11.0 - 16.0 % [facility] MPV 10.1 8.4 - 12.8 fl [facility] DIFF METHOD Auto [facility] NEUTS 63.2 43.0 - 75.0 % [facility] LYMPHS 27.9 18.2 - 47.4 % [facility] MONOS 6.1 4.00 - 11.00 % [facility] EOS 2.3 0.0 - 8.0 % [facility] BASOS 0.2 0.0 - 2.0 % [facility] Granulocytes, immature (%) 0.3 0.0 - 0.9 % [facility] ABSOLUTE NEUTS 3.62 1.80 - 7.70 K/uL [facility] ABSOLUTE LYMPHS 1.60 1.00 - 3.10 K/uL [facility] ABSOLUTE MONOS 0.35 0.20 - 0.80 K/uL [facility] ABSOLUTE EOS 0.13 0.00 - 0.80 K/uL [facility] ABSOLUTE BASOS 0.01 0.00 - 0.09 K/uL [facility] Granulocytes, immature 0.02 0.00 - 0.05 K/uL [facility] Blood 09/07/2022 2:16 PM EDT 09/07/2022 2:39 PM EDT us Aileen [facility] BLOOD ORDERABLES Final Result [facility] [address] [place] [address] documented in this encounter Visit Diagnoses Diagnosis Splenomegaly- Primary documented in this encounter Care Teams Coding Analyst Relationship Specialty Start Date End Date Hunter Sotomayor PA [address] [place] [address] PCP - General 10/07/21 01/21/23 Hiro Eldridge MD [address] [place] [phone] PCP - General Internal Medicine 01/22/23 documented as of this encounter Additional Source Comments The information contained in this document represents components of the legal health record. It is not the complete legal health record.[facility]
--- OUTSIDE RECORDS SUMMARY | 2024-10-16 08:24 | XMS_ITS | Encounter Summary ---
Author Organization [facility] Address [address] [employer] [facility] [address] [place] [address] Phone Care Team Providers Care Budget Manager Name Role Phone Hunter Sotomayor Primary Care Provider + Hunter Sotomayor Primary Care Provider + Hiro Eldridge MD Primary Care Provider Encounter Details Date Type Department Care Team (Latest Contact Info) Description 01/06/2021 Transcribe Orders Virtual Department [address] [place] [address] Bertin Brown MD [address] [place] [id number] [email or web address] Vomiting, intractability of vomiting not specified, presence of nausea not specified, unspecified vomiting type (Primary Dx) Social History Tobacco Use Types [...] Description 08/14/2025 10:00 AM EDT Office Visit [facility] Neurology at [place] [address] [facility] [address] [place] [address] Marcin Alaniz MD, PhD [address] [place] [address] [place] [address] [email or web address] documented as of this encounter Results * FL UGI SERIES DOUBLE CONTRAST (01/27/2021 10:15 AM EST) Anatomical Region Laterality Modality Abdomen Computed Radiogr aphy 01/27/2021 10:0 7 AM EST Impressions 01/27/2021 10:29 AM EST Minimal spontaneous gastroesophageal reflux without significant esophageal or gastroduodenal mucosal pathology detected. FLUOROSCOPY TIME: 1 min. 54 sec; 39 IMAGES/FRAMES POS - [id number] Narrative 01/27/2021 10:29 AM EST COMPARISON: None FINDINGS: Preliminary views of the abdomen reveal right upper quadrant cholecystectomy clips in overall unremarkable bowel gas pattern with stool present throughout the colon. A standard double contrast study was performed. Following ingestion of the contrast mixture deglutition was assessed fluoroscopically and found to be overall unremarkable without evidence of aspiration, achalasia, or abnormal propulsive waves. Minimal reflux into the distal esophagus was documented during the course of examination without gross esophageal mucosal ulcerations or strictures detected. The stomach and duodenal cap filled well and were without evidence of intrinsic disease or involvement of or displacement by extrinsic lesions. The remainder of the visualized proximal small bowel was unremarkable. Procedure Note Bertin Barnes MD - 01/27/2021 COMPARISON: None FINDINGS: Preliminary views of the abdomen reveal right upper quadrantcholecystectomy clips in overall unremarkable bowel gas pattern with stoolpresent throughout the colon. A standard double contrast study wasperformed. Following ingestion of the contrast mixture deglutition was assessedfluoroscopically and found to be overall unremarkable without evidence ofaspiration, achalasia, or abnormal propulsive waves. Minimal reflux intothe distal esophagus was documented during the course of examinationwithout gross esophageal mucosal ulcerations or strictures detected. Thestomach and duodenal cap filled well and were without evidence ofintrinsic disease or involvement of or displacement by extrinsic lesions.The remainder of the visualized proximal small bowel was unremarkable. IMPRESSION: Minimal spontaneous gastroesophageal reflux without significant esophagealor gastroduodenal mucosal pathology detected. FLUOROSCOPY TIME: 1 min. 54 sec; 39 IMAGES/FRAMES POS - [id number] Bertin Brown MD IMG FL MISC Final Result documented in this encounter Visit Diagnoses Diagnosis Vomiting, intractability of vomiting not specified, presence of nausea not specified, unspecified vomiting type- Primary Vomiting, intractability of vomiting not specified, presence of nausea not specified, unspecified vomiting type documented in this encounter Additional Health Concerns Infection Onset Date Last Indicated Resolved Time CoV-Risk 05/22/2021 05/22/2021 06/02/2021 1:22 AM EDT documented as of this encounter Care Teams Budget Manager Relationship Specialty [place] [address] [place] [address] PCP - General 01/05/21 10/06/21 [place] [address] [place] [address] PCP - General 10/07/21 01/21/23 Hiro Eldridge MD [address] [place] [address] [address] [place] [phone] PCP - General Internal Medicine 01/22/23 documented as of this encounter Additional Source Comments The information contained in this document represents components of the legal health record. It is not the complete legal health record.[facility]
--- OUTSIDE RECORDS SUMMARY | 2024-10-16 08:24 | XMS_ITS | Encounter Summary ---
Author Organization [id number] Address [address] [place] [address] Care Team Providers Care Trench Shovel Operator Name Role Phone Meir Echeverria MD Primary Care Provider [phone] Ish DeniseP Primary Care Provider Unava ilable Meir Echeverria MD Primary Care Provider [phone] Woo Small MD Primary Care Provider [phone] Meir Echeverria MD Primary Care Provider Maya BurtonP Primary Care Provider Samanta TannerP Primary Care Provider Vibha WagonerP Primary Care Provider [phone] Joyce MarcosP Primary Care Provider Melvin Padilla Primary Care Provider [phone] Joyce MarcosP Primary Care Provider [phone] Reason for Visit * Reason Onset Date Comments Medication Refill 01/30/2014 Please call lisa high regarding increasing Topamax qty. Refil being sent by pharmacy today. Zohreh Guerrero Encounter Details Date Type Department Care Team (Late st Contact Info) Description [facility] [address] [place] [phone] Meir Echeverria MD [address] [place] [address] Social History Tobacco Use Types Packs/Day Years Used Date Smoking Tobacco: Former Cigarettes Q uit: 09/10/2013 Alcohol Use Standard Drinks/Week Comments Yes 1 (1 standard drink = 0.6 oz pur e alcohol) socially Comments No Sex and Gender Information Value Date Recorded Sex Assigned at Female 03/28/2023 12:41 PM PST Legal Sex Female 11:55 AM PDT Gender Identity Cis or Cisgender 03/28/2023 12:4 1 PM PST Sexual Orientation Straight 03/28/2023 12 :41 PM PST documented as of this encounter Functional Status * Patient's Vision Adequate to Safely Complete Daily Activities Answer Date of Assessment Author Yes 12/05/2013 3:54 AM PDT Yajaira Caro RN * Patient's Judgement Adequate to Safely Complete Daily Activities Answer Date of Assessment Author Yes 12/05/2013 3:54 AM PDT Yajaira Caro RN documented as of this encounter Mental Status * Patient's Memory Adequate to Safely Complete Daily Activities Answer Entry Date Author Yes 12/05/2013 3:54 AM Yajaira Perez RN documented in this encounter Plan of Treatment Not on file documented as of this encounter Visit Diagnoses Not on filedocumented in this encounter Care Teams Trench Shovel Operator Relationship Specialty Start Date End Date Meir Echeverria MD PCP - General Family Medicine 11/16/13 03/25/14 Ish Denise ARNP PCP - General 03/26/14 04/04/14 Meir Echeverria MD PCP - General Family Medicine 04/05/14 07/21/15 Woo Small MD [address] [place] [phone] PCP - General Internal Medicine 07/22/15 08/06/15 Meir Echeverria MD PCP - General Family Medicine 08/07/15 09/15/16 Maya Burton ARNP [address] [place] [phone] PCP - General Nurse Practitioner 09/16/16 08/01/17 Samanta Tanner ARNP [address] [place] [phone] PCP - General Nurse Practitioner 08/02/17 10/28/17 Vibha Wagoner ARNP [address] [place] [phone] PCP - General Family Medicine 10/29/17 12/21/17 Joyce Marcos ARNP [address] [place], [place] [address] PCP - General Nurse Practitioner 12/22/17 02/21/19 Melvin Padilla ARNP [address] [place], [place] [address] PCP - General Nurse Practitioner 02/22/19 07/14/20 Joyce Marcos ARNP [address] [place], [place] [address] PCP - General Nurse Practitioner 07/15/20 documented as of this encounter
--- OUTSIDE RECORDS SUMMARY | 2024-10-16 08:24 | XMS_ITS | Encounter Summary ---
Author Organization [facility] Address [address] [facility] [address] [place] [address] Phone Care Team Providers Care Dean Of Women Name Role Phone Hunter Sotomayor Primary Care Provider + Hunter Sotomayor Primary Care Provider + Hiro Eldridge MD Primary Care Provider [phone] Reason for Referral * - Closed Specialty Diagnoses / Procedures Referred By Mario Alberto t Referred To Contact Diagnoses Dizziness Procedures Autonomic Testing Hunter Sotomayor PA Phone: tel: fax: Referral ID Status Reason Start Date Expiration Date Visits Re quested Visits Authorized [id number] Closed 01/08/2021 01/08/2022 1 1 Encounter Details Date Type Department Care Team (Late st Contact Info) Description 01/08/2021 Ancillary Orders [facility] [address] [place] [address] Hunter Sotomayor PA [address] [place] [address] Dizziness Social History Tobacco Use Types Packs/Day Years [...] Description 08/14/2025 10:00 AM EDT Office Visit [facility] Neurology at [place] [address] [facility] [address] [place] [address] Marcin Alaniz MD, PhD [address] [facility] [place] [address] [email or web address] documented as of this encounter Results * AUTONOMIC TESTING (08/05/2022 12:25 PM EDT) Anatomical Region Laterality Modality Other Other Narrative 08/26/2022 7:07 AM EDT Marcin Alaniz MD, PhD 08/26/2022 7:07 AM Autonomic Testing Date/Time: 08/26/2022 7:07 AM Performed by: Marcin Alaniz MD, PhD Authorized by: NELLY Alcantara Hunter [facility] ORDER[facility]LES Fin al Result documented in this encounter Visit Diagnoses Diagnosis Dizziness Dizziness and giddiness Small fiber neuropathy- Primary Dizziness Dizziness and giddiness Other cerebrovascular vasospasm and vasoconstriction Idiopathic autonomic neuropathy Idiopathic peripheral autonomic neuropathy, unspecified documented in this encounter Additional Health Concerns Infection Onset Date Last Indicated Resolved Time CoV-Risk 05/22/2021 05/22/2021 06/02/2021 1:22 AM EDT documented as of this encounter Care Teams Dean Of Women Relationship Specialty Start Date End Date Hunter Sotomayor PA [address] [place] [address] PCP - General 01/05/21 10/06/21 Hunter Sotomayor PA [address] [place] [address] PCP - General 10/07/21 01/21/23 Hiro Eldridge MD [address] [facility] [address] [place] [phone] PCP - General Internal Medicine 01/22/23 documented as of this encounter Additional Source Comments The information contained in this document represents components of the legal health record. It is not the complete legal health record.[facility]
--- OUTSIDE RECORDS SUMMARY | 2024-10-16 08:24 | XMS_ITS | Referral Summary ---
Author Organization [employer] [facility] Address [address] [place] [address] Care Team Providers Care Brick Sorter Name Role Phone Priti Joyceminda VALLECILLO Primary Care Provider [phone] Allergies Active Allergy Reactions Criticality Noted Date [...] (10/26/2016): Added automatically from request for surgery [id number] Elevated glycated hemoglobin 02/15/2016 09/20/2017 Tobacco use [...] M 12/05/2013 Pneumococcal Polysaccharide (Pneumovax) 12/06/19 14 Social History Tobacco Use Types Packs/Day Years [...] Mass Index 45.03 03/21/2023 1:39 PM PST Functional Status * Patient's Vision Adequate to Safely Complete Daily Activities Answer Date of Assessment Author Yes 04/13/2021 4:12 PM PST * Patient's Judgement Adequate to Safely Complete Daily Activities Answer Date of Assessment Author Yes 04/13/2021 4:12 PM PST Mental Status * Patient's Memory Adequate to Safely Complete Daily Activities Answer Entry Date Author Yes 04/13/2021 4:12 PM PST Plan of Treatment Not on file Procedures Procedure Name Priority Date/Time Associated Diagnosis [...] 10:53:39 copy to: Melvin VALLECILLO, [facility], fax: [phone] letter sent: Normal Letter A-B-C Mammogram BI-RADS: [...] made to exam dated: 01/31/2009 mammogram - [facility]. FINDINGS: The breast composition of both breasts [...] is made to exam dated: 01/31/2009 mammogram -[facility]. FINDINGS: The breast composition of both breasts [...] of breast malignanciesare mammographically occult. George Saravia M.D. rp/penrad:04/25/2019 10:53:39 copy to: Melvin VALLECILLO, [facility], fax:[phone] letter sent: Normal Letter A-B-C Mammogram BI-RADS: 1 Negative Colt Trujillo MD IM MAMMOGRAPHY ORDERABLES Monique l Result * (ABNORMAL) Lipid panel (09/21/2017 12:38 AM PDT) Cholesterol 166 0 - 199 mg/dL 09/21/2017 9:16 AM PDT [facility] Triglycerides 104 0 - 149 mg/dL 09/21/2017 9:16 AM PDT [facility] HDL Cholesterol 38(L) 40 - 90 mg/dL 09/21/2017 9:16 AM PDT [facility] Chol/HDL-C Ratio 4.4 0.0 - 5.0 09/22/19 18 9:16 AM PDT [facility] LDL Cholesterol 107 0 - 130 mg/dL 09/21/2017 9:16 AM PDT [facility] LDL, HDL-C Ratio 2.8 (No normals established ) 09/21/2017 9:16 AM PDT [facility] Non HDL Cholesterol,Calc 128 0 - 159 mg/dL 09/21/2017 9:16 AM PDT [facility] Blood Venipuncture / Unknown 09/21/2017 12:38 AM PDT 09/21/2017 12:42 AM PDT Narrative [facility] - 09/21/2017 9:16 AM PDT HDL [...] [facility] [address] [place] [address] * Screening Colonoscopy - Non-High Risk (11/04/2016 [...] care provider. Procedure Code(s): --- Professional --- 96504, Colonoscopy, flexible; with biopsy, single or multiple Diagnosis Code(s): --- Professional --- Z12.11, Encounter for screening for malignant neoplasm of colon K57.30, Diverticulosis of large intestine without perforation or abscess without bleeding CPT copyright 2014 [employer]. All rights reserved. The codes documented in this report are preliminary and upon access representative review may be revised to meet current [...] 1960 Admit Type: Ambulatory Age: 56 Room: [place] [address] Gender: Female Attending MD: Jasmyn Jordan MD [...] oxygen saturations were monitored continuously. The PCF-[id number] was introduced through the anus and advanced [...] 1960 Admit Type: Ambulatory Age: 56 Room: [facility] Gender: Female Attending MD: Jasmyn Jordan MD [...] and oxygen saturations were monitored continuously. ThePCF-[id number] was introduced through the anus and advancedto [...] care provider. Procedure Code(s): --- Professional --- 97336, Colonoscopy, flexible; with biopsy, single or multiple Diagnosis Code(s): --- Professional --- Z12.11, Encounter for screening for malignantneoplasm of colon K57.30, Diverticulosis of large intestine without perforation or abscess without bleeding CPT copyright 2014 [employer]. All rights reserved. The codes documented in this report are preliminary and upon access representative reviewmay be revised to meet current compliance requirements. MD Jasmyn Farah MD 11/04/2016 9:45:48 AM This document has been electronically signed. Number of Addenda: 0 Note Initiated On: 11/04/2016 9:09 AM Procedure/Sedation Begin: 9:13:54 AM Procedure/Sedation Complete: 9:35:37 AM Jasmyn Jordan MD GI PROCEDURE ORDERABLES Final Result Performing Organization Address City/State/[facility] Co de Phone Number PROVATION from Last 3 Months or Most Recently Relevant to Health Maintenance Insurance [facility] MEDICAID MEDICAID OUT OF STATE Advance Directives Documents on File Type Date Recorded Patient Butter Printer Expl anation Power of Attorneys 09/21/2017 Beverly figueroa, Ryan Pascual * Full Code (Latest Code Status on [...] Pascual Daughter Health Care Agent Care Teams Brick Sorter Relationship Specialty Start Date End Date Joyce Marcos ARNP [address] [address] PCP - General Nurse Practitioner 07/15/20
--- OUTSIDE RECORDS SUMMARY | 2024-10-16 08:24 | XMS_ITS | Encounter Summary ---
Author Organization [facility] Address [address] [place] [address] Phone Care Team Providers Care Smoking Pipe Mounter Name Role Phone Hunter Sotomayor Primary Care Provider + Hiro Eldridge MD Primary Care Provider [phone] Encounter Details Date Type Department Care Team (Late st Contact Info) Description 09/08/2022 Procedure Pass [facility] Radiology [address] [place] [address] Social History Tobacco Use Types Packs/Day Years [...] Description 08/14/2025 10:00 AM EDT Office Visit [facility] [place] [address] [place] [address] Marcin Alaniz MD, PhD [address] [facility] [place] [address] [email or web address] documented as of this encounter Visit Diagnoses Not on filedocumented in this encounter Care Teams Smoking Pipe Mounter Relationship Specialty [place] [address] [place] [phone] PCP - General 10/07/21 01/21/23 Hiro Eldridge MD [address] [place] [phone] PCP - General Internal Medicine 01/22/23 documented as of this encounter Additional Source Comments The information contained in this document represents components of the legal health record. It is not the complete legal health record.[facility]
--- OUTSIDE RECORDS SUMMARY | 2024-10-16 08:25 | XMS_ITS | Encounter Summary ---
Author Organization [employer] [facility] Address [address] [place] [address] Care Team Providers Care Plant Protection Guard Name Role Phone Maya BurtonP Primary Care Provider Samanta Tanner [facility] Primary Care Provider Vibha Wagoner [facility] Primary Care Provider Joyce Marcos [facility] Primary Care Provider [phone] Melvin Padilla [facility] Primary Care Provider [phone] Joyce Marcos [facility] Primary Care Provider [phone] Encounter Details Date Type Department Care Team (Late st Contact Info) Description 04/06/2017 Lab Requisition [address] [phone] Nichole Nino MD [address] [address] Hydronephrosis; Hypokalemia; Essential (primary) hypertension; Abdominal pain Social History Tobacco Use Types Packs/Day Years Used Date Smoking Tobacco: Former Cigarettes 2 30 1 03/09/1984 - 01/07/2015 Smokeless Tobacco: Never Alcohol Use Standard Drinks/Week Comments Yes 0 (1 standard drink = 0.6 oz pur e alcohol) 2 drinks/week Comments No Sex and Gender Information Value Date Recorded Sex Assigned at Female 03/28/2023 12:41 PM PST Legal Sex Female 11:55 AM PDT Gender Identity Cis or Cisgender 03/28/2023 12:4 1 PM PST Sexual Orientation Straight 03/28/2023 12 :41 PM PST documented as of this encounter Functional Status * Patient's Vision Adequate to Safely Complete Daily Activities Answer Date of Assessment Author Yes 02/16/2016 1:15 PM PST Bren Lei RN * Patient's Judgement Adequate to Safely Complete Daily Activities Answer Date of Assessment Author Yes 02/16/2016 1:15 PM PST Bren Lei RN documented as of this encounter Mental Status * Patient's Memory Adequate to Safely Complete Daily Activities Answer Entry Date Author Yes 02/16/2016 1:15 PM PST Bren Lei RN documented in this encounter Plan of Treatment Not on file documented as of this encounter Procedures Procedure Name Priority Date/Time Associated Diagnosis Comments UA WITH CULTURE, IF INDICATED Today 04/06/2017 11:54 AM PST Hydronephrosis Hypokalemia Essential (primary) hypertension Abdominal pain BASIC METABOLIC PANEL Today 04/06/2017 11:54 AM [facility] Hydronephrosis Hypokalemia Essential (primary) hypertension Abdominal pain documented in this encounter Results * Urinalysis with culture, if indicated (04/06/2017 11:54 AM PST) Color Yellow Colorless, Straw, Yellow 04/06/2017 4:06 PM [facility] Clarity Clear Clear 04/06/2017 4:06 PM [facility] Glucose Negative Negative 04/06/2017 4:06 PM [facility] Protein Negative Negative, Trace 04/06/2017 4:06 PM [facility] Bilirubin Negative Negative 04/06/2017 4:06 PM [facility] Urobilinogen <2.0 <2.0 mg/dL mg/dL 04/06/2017 4:06 PM [facility] pH 7.0 5.0 - 8.0 04/06/2017 4:06 PM [facility] Blood Negative Negative 04/06/2017 4:06 PM [facility] Ketones Urine Negative Negative 04/06/2017 4:06 PM [facility] Nitrite Negative Negative 04/06/2017 4:06 PM [facility] Leukocyte Esterase Negative Negative 04/06/2017 4:06 PM [facility] Specific [place] 1.004 1.001 - 1.030 04/06/2017 4:06 PM [facility] Urine 04/06/2017 11:5 4 AM PST 04/06/2017 11:54 AM [facility] Narrative [facility] - 04/06/2017 4:06 PM [facility] Microscopic examination of urinary sediment not indicated. Result [facility] Nichole Nino MD URINE ORDERABLES Final Result [facility] [address] [phone] * (ABNORMAL) Basic metabolic panel (04/06/2017 11:54 AM [facility]) Sodium 144 135 - 145 mmol/L 04/06/2017 4:30 PM [facility] Potassium 4.6 3.5 - 5.1 mmol/L 04/06/2017 4:30 PM [facility] Chloride 106 98 - 107 mmol/L 04/06/2017 4:30 PM [facility] CO2,Total 27 22 - 30 mmol/L 04/06/2017 4:30 PM [facility] Anion Gap 11 5 - 16 mmol/L 04/06/2017 4:30 PM [facility] Osmolality, Calculated 289 275 - 295 mOsm/K 04/06/2017 4:30 PM [facility] Glucose 134(H) 74 - 106 mg/dL 04/06/2017 4:30 PM [facility] Calcium 9.4 8.4 - 10.4 mg/dL 04/06/2017 4:30 PM [facility] BUN 13 7 - 17 mg/dL 04/06/2017 4:30 PM [facility] Creatinine 0.74 0.52 - 1.04 mg/dL 04/06/2017 4:30 PM [facility] BUN/Creatinine Ratio 18 7 - 24 04/06/2017 4:30 PM [facility] GFR if >90 >=60 mL/min/1.7 3m2 04/06/2017 4:30 PM [facility] GFR if not 82 >=60 mL/min/1.7 3m2 04/06/2017 4:30 PM [facility] Comment: <60 mL/min/1.73m2 Chronic Kidney Disease <15 mL/min/1.73m2 Kidney failure MDRD formula used for GFR calculation. Not intended for drug dosing decisions. Blood Venipuncture / Unknown 04/06/2017 11:54 AM [facility] 04/06/2017 11:54 AM [facility] Nichole Nino MD LAB BLOOD ORDERABLES Final Resul t [facility] [address] [phone] documented in this encounter Visit Diagnoses Diagnosis Hydronephrosis Hypokalemia Hypopotassemia Essential (primary) hypertension Unspecified essential hypertension Abdominal pain Abdominal pain, unspecified site documented in this encounter Care Teams Plant Protection Guard Relationship Specialty Start Date End Date Maya Burton ARNP PCP - General Nurse Practitioner 09/16/16 08/01/17 Samanta Tanner ARNP PCP - General Nurse Practitioner 08/02/17 10/28/17 Vibha Wagoner ARNP PCP - General Family Medicine 10/29/17 12/21/17 Joyce Marcos ARNP [address] [place], [place] [phone] PCP - General Nurse Practitioner 12/22/17 02/21/19 Melvin Padilla ARNP [address] [place], [place] [phone] PCP - General Nurse Practitioner 02/22/19 07/14/20 Joyce Marcos ARNP [address] [facility] [address] [facility] [address] [place], [place] [phone] PCP - General Nurse Practitioner 07/15/20 documented as of this encounter
--- OUTSIDE RECORDS SUMMARY | 2024-10-16 08:25 | XMS_ITS | Encounter Summary ---
Author Organization [facility] Address [address] [facility] [address] [place] [address] Phone Care Team Providers Care Engraver Pantograph Name Role Phone Hiro Eldridge MD Primary Care Provider [phone] Encounter Details Date Type Department Care Team (Late st Contact Info) Description 05/19/2023 Procedure Pass [facility] [address] [place] [address] Social History Tobacco Use Types Packs/Day Years [...] Description 08/14/2025 10:00 AM EDT Office Visit [facility] Neurology [facility] [place] [address] [facility] [address] [place] [address] Marcin Alaniz MD, PhD [address] [facility] [place] [address] [email or web address] documented as of this encounter Visit Diagnoses Not on filedocumented in this encounter Care Teams Engraver Pantograph Relationship Specialty Start Date End Date Chente, Hiro Harper MD [address] [place] [phone] PCP - General Internal Medicine 01/22/23 documented as of this encounter Additional Source Comments The information contained in this document represents components of the legal health record. It is not the complete legal health record.[facility]
--- OUTSIDE RECORDS SUMMARY | 2024-10-16 08:25 | XMS_ITS | Clinical Summary ---
Author Organization [facility] Address [address] [facility] [address] [place] [address] Phone Care Team Providers Care Spectrograph Operator Name Role Phone Hiro Eldridge MD Primary Care Provider [phone] Allergies Active Allergy Reactions Criticality Noted Date Comments Haloperidol 08/21/2020 Causes QT prolongation Cephalexin Anaphylaxis High 04/10/2020 Closes throat unable to breath Metoclopramide Hcl 06/12/2022 Oxycodone Itching Low 11/17/2005 Ondansetron Hcl 08/21/2020 Causes QT prolongation Medications lisinopril (PRINIVIL,ZESTRIL ) 10 MG tablet Take 1 tablet (10 mg total) by mouth daily. 30 tablet 1 Active sertraline (ZOLOFT) 100 MG tablet Take 200 mg by mouth daily. Active tiotropium (SPIRIVA HANDIHALER) 18 mcg inhalation capsule Inhale 18 mcg into the lungs daily. Active budesonide-formot sona (SYMBICORT) 80-4.5 mcg/actuation inhaler Inhale 2 puffs into the lungs 2 (two) times a day. Active albuterol 90 mcg/actuation inhaler Inhale 2 puffs into the lungs every 6 (six) hours as needed for wheezing. Active montelukast (SINGULAIR) 10 mg tablet Take 10 mg by mouth daily. 3 Active diazePAM (VALIUM) 5 MG tablet Take 5 mg by mouth nightly at bedtime as needed. 3 Active lamoTRIgine (LAMICTAL) 25 MG IMMEDIATE release tablet Take 25 mg by mouth daily. 3 Active scopolamine (TRANSDERM-SCOP) 1 mg over [address] 1 patch onto the skin every third day. Place 1 patch onto the skin every third day. 10 patch 11 4 Active topiramate (TOPAMAX) 50 MG tablet Take 1 tablet (50 mg total) by mouth 2 (two) times a day. 180 tablet 3 5 Active cyclobenzaprine (FLEXERIL) 5 MG tablet TAKE 1 TABLET BY MOUTH 3 TIMES DAILY NEEDED FOR SPASMS 90 tablet 3 5 Active lidocaine 2 % Soln Take 15 mL by mouth 2 (two) times a day as needed. Active Medication-Free Text Take 500 mg by mouth. Pt takes with lidocaine soln Active galcanezumab-gnlm (EMGALITY PEN) 120 mg/mL subcutaneous injection Inject 120 mg under the skin every 30 (thirty) days. Active pantoprazole (PROTONIX) 40 MG tablet Take 40 mg by mouth daily. Active polyethylene glycol (MIRALAX) 17 gram packet Take 17 g by mouth 3 (three) times a day. Active amitriptyline (ELAVIL) 10 MG tablet Take 10 mg by mouth 2 (two) times a day. Active propranoloL (INDERAL LA) 80 mg 24 hr capsule Apply patch at the onset of cyclic vomiting and elevated blood pressure, keep it on the skin for 24 hours. 12 capsule 3 5 Active Active Problems Problem Noted Date Diagnosed Date Transaminitis 10/08/2021 Assessment & Plan (10/09/2021 2:58 PM EDT): Mild, may be related to vomiting. Resolved -- No further intervention planned BONIFACIO (acute kidney injury) 10/07/2021 Assessment & Plan (10/09/2021 2:58 PM EDT): Mild BONIFACIO with creatinine 1.2, due to prerenal hypoperfusion from vomiting Renal function has improved. BONIFACIO resolved -- Continue IV fluids until ready to start clear liquid diet Chest heaviness 06/07/2020 Assessment & Plan (06/07/2020 4:12 PM EDT): Patient complains of chest heaviness which she has had off and on for several weeks but states has been present for 5 days now more present today. High-sensitivity troponin is less than 6x3. EKG with no ischemic changes on three tracing. -No evidence of ACS. -Chest heaviness is likely due to reflux from continuous nausea possible chemical esophagitis. Plan: -Pantoprazole 40 mg daily -Pepcid 20 mg twice daily Hypokalemia 06/06/2020 Assessment & Plan (06/07/2020 4:10 PM EDT): Hypokalemia secondary to GI losses from nausea and vomiting. Patient received 40 mEq of p.o. potassium in the ED however had subsequent nausea and vomiting. She was subsequently given 10 M Eq of IV potassium. Patient was given magnesium along with potassium replacement in the ED. Potassium on admission was 2.8. Patient has received a total of 60 mEq of potassium IV since admission. Repeat potassium levels this afternoon at 3.3. -Given continued nausea we will administer 20 M EQ of potassium IV with a goal of getting the potassium level above four. -We will hold on p.o. replacement of potassium as this is likely to worsen her nausea. -Repeat potassium level in a.m. -Monitor on telemetry. Hypomagnesemia 06/06/2020 Assessment & Plan (06/07/2020 4:11 PM EDT): Magnesium level is low normal at 1.8 on admission. Patient was treated with 2 g of IV magnesium in the ED. Magnesium levels now within normal limits at 2.1. Cyclical vomiting 06/06/2020 Assessment & Plan (10/10/2021 9:46 AM EDT): Presenting with intractable vomiting, mild BONIFACIO with creatinine 1.2 and mild hypokalemia with potassium 3.4. She has had previous episodes lasting up to 10 days Improvement over last 24 hours, but more vomiting and diarrhea after trial of apple juice earlier this morning. K+ levels improved --- Not ready to advance diet further. Continue IV fluids and sips of clears only -- Monitoring electrolytes and renal function. Potassium improved with increase in IV fluids -- She would like to try Phenergan in place of Compazine. Will adjust orders and schedule Reglan 4 times daily -- He is encouraged to try to walk the hallway later when nausea better controlled Assessment & Plan (06/07/2020 4:15 PM EDT): Long history of cyclical vomiting followed by Dr. Willis of gastroenterology in [facility]. Patient states that traditional antiemetics have not been successful for her. 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 Patient notes that she has recently submitted a 30-day event monitor but results are pending. Patient had improvement in her nausea and vomiting however with introduction of food had recurrent symptoms. -QTC has normalized however given the marked abnormality will continue to avoid Haldol, Reglan, Zofran as much as possible. If necessary patient may have a dose of Zofran. -Treat nausea with Phenergan 25 mg increased to every 4 hours as needed nausea vomiting. -Monitor overnight. -Advance diet as tolerated. -Continue pantoprazole 40 mg p.o. daily QT prolongation 06/06/2020 Assessment & Plan (06/07/2020 4:11 PM EDT): EKG in the ED shows QT prolongation with a QTC of 516. Patient did receive Reglan 5 mg x 1 in ED. Repeat EKG this morning showed improvement in the QTC to 483. Potassium has been repleted up to 3.3 and an EKG 06/07 at 4 PM shows normal QTC at 444. -Monitor on telemetry overnight. -Avoid QT prolonging medications. Leukocytosis 06/06/2020 Assessment & Plan (06/07/2020 4:21 PM EDT): Resolved. Initial labs show mild leukocytosis of 11.35 with left shift 80% neutrophils. Patient reported diarrhea on the first day of nausea and vomiting. She has not had any further diarrhea. Question if GI symptoms were precipitated by an enterovirus. -Monitor clinical picture for signs of infection. Hyperglycemia 06/06/2020 Assessment & Plan (06/07/2020 4:22 PM EDT): Fasting blood sugar in the ED was noted to be elevated at 180. Patient gives no history of hypoglycemia. Hemoglobin A1c 5.8. FBS 119 today. Patient to follow-up with PCP appears to be prediabetic. COPD (chronic obstructive pulmonary disease) Assessment & Plan (10/08/2021 3:47 PM EDT): No new concerns -- cont Spiriva and Symbicort per home regimen Assessment & Plan (06/06/2020 12:45 PM EDT): History of COPD. Quit smoking 8 years ago. No evidence of exacerbation. -Continue Singulair daily -As needed albuterol Hypertension 06/06/2020 Assessment & Plan (06/07/2020 4:20 PM EDT): Patient has a history of hypertension managed with lisinopril 5 mg daily. Blood pressures have been markedly elevated in the ED. Elevations noted to be associated with nausea and dry heaves. Patient has had marked elevation in her blood pressure she was given amlodipine 5 mg in addition to the lisinopril 5 mg with no appreciable improvement. Blood pressures remained elevated overnight when patient had no nausea or retching. -We will streamline antihypertensive regimen. GFR is remained stable at eighties to nineties. -We will increase lisinopril to 10 mg daily. -Follow blood pressures. Encounters Date Type Department Care Team Description 08/30/2024 Telephone [facility] Neurology at [address] [address] Marcin Alaniz MD, PhD Medication Refill 08/29/2024 Orders Only [facility] Neurology at [address] [address] Marcin Alaniz MD, PhD 08/27/2024 12:28 PM EDT - 08/27/2024 11:59 PM EDT Hospital Encounter [facility] Pathology Outpatient Lab [address] [place] [address] Marcin Alaniz MD, PhD Discharge Disposition: Home or Self Care 08/27/2024 10:00 AM EDT Office Visit [facility] Neurology at [address] [address] Marcin Alaniz MD, PhD Small fiber neuropathy (Primary Dx) from Last 3 Months Family History Medical History Relation Comments Stroke Father Stroke Mother No Known Problems Sister Relation Status Comments Father Mother Sister Alive Social History Tobacco Use Types Packs/Day Years [...] with a working camera? Not on file Intimate Partner Violence Answer Date R ecorded Are you denied basic needs s uch as food, clothing, or medical care? No 11/24/2023 In the past 12 months have y ou been in a relationship with a person who hurts, threatens, or tries to control you? No 11/24/2023 Are you denied basic needs s uch as food, clothing, or medical care? No 11/24/2023 In the past 12 months have y ou been in a relationship with a person who hurts, threatens, or tries to control you? No 11/24/2023 Comments Unknown Sex and Gender Information Value Date Recorded Sex Assigned at Female 06/06/2020 6:56 AM EDT Legal Sex Female 2:14 PM EST Gender Identity Female 06/06/2020 6:56 AM EDT Sexual Orientation Straight 05/22/2021 4: 12 PM EDT Last Filed Vital Signs Vital Sign Reading Time Taken Comments Blood Pressure 124/93 11/25/2023 1:50 AM EDT Pulse 81 11/25/2023 1:50 AM EDT Temperature 36.6 C (97.8 F) 11/25/2023 1:50 AM EDT Respiratory Rate 20 11/25/2023 1:50 AM EDT Oxygen Saturation 95% 11/25/2023 1:50 AM EDT Inhaled Oxygen Concentration - - Weight 122.5 kg (270 lb) 11/24/2023 6:24 PM EDT Height 162.6 cm (5' 4 ) 11/24/2023 6:24 PM EDT Body Mass Index 46.35 11/24/2023 6:24 PM EDT Plan of Treatment Upcoming Encounters Date Type Department Care Team (Late st Contact Info) Description 08/14/2025 10:00 AM EDT Office Visit [facility] Neurology at [place] [address] [facility] [address] [place] [address] Marcin Alaniz MD, PhD [address] [facility] Department [place] [address] [email or web address] Health Maintenance Due Date Last Done Comments Adult Td,Tdap Booster 1962 DEPRESSION SCREENING 1974 SMOKING Hx and SMOKELESS TOBACCO SCREENING 08/08/1975 HEPATITIS C SCREENING 1980 HIV ONE-TIME SCREENING (18-65 YEARS) 1980 COLOGUARD 08/08/2007 COLONOSCOPY 08/08/2007 COLORECTAL CANCER SCREENING 08/08/2007 FIT TEST 08/08/2007 FOBT 08/08/2007 SIGMOIDOSCOPY 08/08/2007 VIRTUAL COLONOSCOPY 08/08/2007 PAP SMEAR 04/13/2009 04/13/2006 ZOSTER VACCINES (1 of 2) 2012 MAMMOGRAM 04/20/2021 04/20/2019 RSV VACCINE (1 - Risk 60-74 years 1-dose series) 2022 LIPID PANEL 09/21/2022 09/21/2017 BLOOD PRESSURE 08/02/2023 01/31/2023 COVID-19 VACCINE ( season) 2023 01/28/2023, 10/11/2022, 11/24/2021, Additional history exists CREATININE LEVEL 08/27/2025 08/27/2024, 04/2023, 07/08/2023, Additional history exists POTASSIUM LEVEL 08/27/2025 08/27/2024, 1004/2023, 07/08/2023, Additional history exists SCREENING FOR DIABETES 08/28/2027 08/27/2024, 2022 PNEUMOCOCCAL VACCINES (50+ years) Completed 01/28/2023, 11/24/2021 HEPATITIS A VACCINES Aged Out No long er eligible based on patient's age to complete this topic HIB VACCINES Aged Out No longer eligi ble based on patient's age to complete this topic MENINGOCOCCAL VACCINES (ACWY) Aged Out No longer eligible based on patient's age to complete this topic MENINGOCOCCAL VACCINES (B) Aged Out N o longer eligible based on patient's age to complete this topic Medical Devices Not on file Procedures Procedure Name Priority Date/Time Associated Diagnosis Comments HC BLOOD COUNT COMPLETE AUTO&AUTO DIFRNTL WBC Routine 08/27/2024 12:28 PM EDT Idiopathic autonomic neuropathy COMPREHENSIVE METABOLIC PANEL Routine 08/27/2024 12:28 PM EDT Idiopathic autonomic neuropathy from Last 3 Months Results * (ABNORMAL) Comprehensive metabolic panel (08/27/2024 12:28 PM EDT) SODIUM 135(L) 136 - 145 mmol/L [facility] POTASSIUM 4.1 3.4 - 5.0 mmol/L [facility] CHLORIDE 101 98 - 107 mmol/L [facility] CO2 23 22 - 31 mmol/L [facility] BUN 15 6 - 23 mg/dL [facility] CREATININE 0.96 0.50 - 1.20 mg/dL [facility] GLUCOSE 95 70 - 115 mg/dL [facility] ALBUMIN 4.1 3.5 - 5.2 g/dL [facility] TOTAL PROTEIN 8.7(H) 6.0 - 8.0 g/dL [facility] CALCIUM 9.4 8.6 - 10.7 mg/dL [facility] ALKALINE PHOSPHATASE 86 40 - 130 U/L [facility] TOTAL BILIRUBIN 0.3 0.0 - 1.0 mg/dL [facility] AST 30 10 - 50 U/L [facility] ALT 28 10 - 50 U/L [facility] GLOBULIN 4.6(H) 2.2 - 4.2 g/dL [facility] EGFR 67 >60 mL/min/1.7 3m2 [facility] Comment:Estimated glomerular filtration rate calculated using the CKD-EPI refit equation. ANION GAP 11 3 - 15 mmol/L [facility] 08/27/2024 12:2 8 PM EDT 08/27/2024 1:18 PM EDT us Marcin Alaniz MD, PhD LAB BLOOD ORDERABLES Final R esult [address] [address] * (ABNORMAL) CBC and differential (08/27/2024 12:28 PM EDT) WBC 5.13 4.00 - 11.00 K/uL [facility] RBC 4.05 4.00 - 5.20 M/uL [facility] HGB 12.9 12.0 - 16.0 g/dL [facility] HCT 38.6 36.0 - 46.0 % [facility] PLT 219 150 - 450 K/uL [facility] MCV 95.3 80.0 - 100.0 fL [facility] MCH 31.9(H) 27.0 - 31.0 pg [facility] MCHC 33.4 32.0 - 36.0 g/dL [facility] RDW 12.5 11.5 - 14.5 % [facility] MPV 8.9 8.4 - 12.0 fL [facility] NRBC 0.00 0.00 /100 WBCs [facility] ABSOLUTE NRBC 0.00 0.00 K/uL [facility] DIFF METHOD Auto [facility] NEUTS 56.7 48.0 - 76.0 % [facility] LYMPHS 35.3 18.0 - 41.0 % [facility] MONOS 6.8 4.0 - 11.0 % [facility] EOS 0.2 0.0 - 5.0 % [facility] BASOS 0.4 0.0 - 1.5 % [facility] Granulocytes, immature (%) 0.6 0.0 - 0.9 % [facility] ABSOLUTE NEUTS 2.91 1.92 - 7.60 K/uL [facility] ABSOLUTE LYMPHS 1.81 0.72 - 4.10 K/uL [facility] ABSOLUTE MONOS 0.35 0.16 - 1.10 K/uL [facility] ABSOLUTE EOS 0.01 0.00 - 0.50 K/uL [facility] ABSOLUTE BASOS 0.02 0.00 - 0.15 K/uL [facility] Granulocytes, immature 0.03 0.00 - 0.09 K/uL [facility] Blood 08/27/2024 12:2 8 PM EDT 08/27/2024 1:18 PM EDT us Marcin Alaniz MD, PhD LAB BLOOD ORDERABLES Final R esult [facility] [address] [place] [address] from Last 3 Months Insurance [facility] ONE C[employer] MEDICARE REPLACEMENT [facility] MEDICARE REPLACEMENT [facility] MEDICARE REPLACEMENT Advance Directives For more information, please contact: [phone] (9AM - 5PM [facility] [place], Tuesday-Tuesday) * Full Code (Latest Code Status on File) Date Activated Date Inactivated Comments 10/07/2021 8:01 AM Question Answer Comments Code Status Confirmed With: Other (specify below ) Code Discussion Comments: presumed * Full Code Date Activated Date Inactivated Comments 06/06/2020 2:23 PM 10/07/2021 8:01 AM Question Answer Comments Code Status Confirmed With: Patient Care Teams Spectrograph Operator Relationship Specialty Start Date End Date Hiro Eldridge MD [address] [place] [id number] PCP - General Internal Medicine 01/22/23 Additional Source Comments The information contained in this document represents components of the legal health record. It is not the complete legal health record.[facility]
--- OUTSIDE RECORDS SUMMARY | 2024-10-16 08:25 | XMS_ITS | Encounter Summary ---
Author Organization [facility] Address [address] [place] [address] Care Team Providers Care Flaking Roll Operator Name Role Phone Meir Echeverria MD Primary Care Provider Ish Denise [facility] Primary Care Provider Unava ilable Meir Echeverria MD Primary Care Provider Woo Small MD Primary Care Provider Meir Echeverria MD Primary Care Provider Maya Burton [facility] Primary Care Provider Samanta Tanner [facility] Primary Care Provider Vibha Wagoner [facility] Primary Care Provider Joyce Marcos [facility] Primary Care Provider [phone] Melvin Padilla [facility] Primary Care Provider [phone] Jyoce MarcosP Primary Care Provider [phone] Reason for Visit * Reason Comments Other Encounter Details Date Type Department Care Team (Late st Contact Info) Description 12/10/2013 [facility] - Primary Care [address] [place] [phone] Meir Echeverria MD [address] [place] [address], [place] [address] Social History Tobacco Use Types Packs/Day Years Used Date Smoking Tobacco: Former Cigarettes Q uit: 09/10/2013 Alcohol Use Standard Drinks/Week Comments Yes 0 [...] Entry Date Author Yes 12/05/2013 3:54 AM PDT Yajaira Caro RN documented in this encounter Plan of Treatment Not on file documented as of this encounter Visit Diagnoses Not on filedocumented in this encounter Care Teams Flaking Roll Operator Relationship Specialty Start Date End Date Meir Echeverria MD PCP - General Family Medicine 11/16/13 03/25/14 Ish Denise ARNP PCP - General 03/26/14 04/04/14 Meir Echeverria MD PCP - General Family Medicine 04/05/14 07/21/15 Woo Small MD [address] [place] [phone] PCP - General Internal Medicine 07/22/15 08/06/15 Meir Echeverria MD PCP - General Family Medicine 08/07/15 09/15/16 Maya Burton ARNP [address] [place] [phone] PCP - General Nurse Practitioner 09/16/16 08/01/17 Samanta Tanner ARNP [address] [place] [phone] PCP - General Nurse Practitioner 08/02/17 10/28/17 Vibha Wagoner ARNP [address] [place] [phone] PCP - General Family Medicine 10/29/17 12/21/17 Joyce Marcos ARNP [address] [place], [place] [phone] PCP - General Nurse Practitioner 12/22/17 02/21/19 Melvin Padilla ARNP [address] [place], [place] [phone] PCP - General Nurse Practitioner 02/22/19 07/14/20 Joyce Marcos ARNP [address] [place], [place] [phone] PCP - General Nurse Practitioner 07/15/20 documented as of this encounter
--- OUTSIDE RECORDS SUMMARY | 2024-10-16 08:25 | XMS_ITS | Encounter Summary ---
Author Organization [facility] Address [address] [place] [address] Phone Care Team Providers Care Director Of Medical Services Name Role Phone Hunter Sotomayor Primary Care Provider + Hiro Eldridge MD Primary Care Provider [phone] Encounter Details Date Type Department Care Team (Late st Contact Info) Description 09/17/2022 Transcribe Orders [facility] Interventional Imaging [address] [place] [address] Hunter Sotomayor PA [address] [place] [address] Social History Tobacco Use Types Packs/Day Years [...] Description 08/14/2025 10:00 AM EDT Office Visit [facility] Neurology at [place] [address] [facility] [address] [place] [address] Marcin Alaniz MD, PhD [address] [facility] Department [place] [address] [email or web address] documented as of this encounter Visit Diagnoses Not on filedocumented in this encounter Care Teams Director Of Medical Services Relationship Specialty [place] [address] [place] [phone] PCP - General 10/07/21 01/21/23 Hiro Eldridge MD [address] [place] [phone] PCP - General Internal Medicine 01/22/23 documented as of this encounter Additional Source Comments The information contained in this document represents components of the legal health record. It is not the complete legal health record.[facility]
--- OUTSIDE RECORDS SUMMARY | 2024-10-16 08:25 | XMS_ITS | Encounter Summary ---
Author Organization [facility] Address [address] [place] [address] Care Team Providers Care Sfdc Developer Name Role Phone Maya Burton Primary Care Provider Samanta TannerP Primary Care Provider Vibha WagonerP Primary Care Provider Joyce Marcos [facility] Primary Care Provider [phone] Melvin Padilla [facility] Primary Care Provider [phone] Joyce Marcos [facility] Primary Care Provider [phone] Reason for Referral * Surgical (Routine) - Closed Specialty Diagnoses / Procedures Referred By Mario Alberto li Referred To Contact Gastrointestinal Surgery Diagnoses Encounter for screening for malignant neoplasm of colon Procedures Case Request GI/Pain: COLONOSCOPY Maya Burton ARNP Phone: tel: fax: [facility] [address], [address] [address] Phone: tel: fax: Referral ID Status Reason Start Date Expiration Date Visits Re quested Visits Authorized [id number] Closed 10/20/2016 10/20/2017 1 1 Encounter Details Date Type Department Care Team (Latest Contact Info) Description 10/20/2016 Order Political Scientist [facility] - [address], [address] [place] [address] Maya Burton ARNP [address] [place] [address] Encounter for screening for malignant neoplasm of colon (Primary Dx) Social History Tobacco Use Types Packs/Day Years Used Date Smoking Tobacco: Former Cigarettes Q uit: 01/07/2015 Smokeless Tobacco: Never Alcohol Use Standard Drinks/Week Comments Yes 1 (1 standard drink = 0.6 oz pur e alcohol) rare Comments No Sex and Gender Information Value [...] Entry Date Author Yes 02/16/2016 1:15 PM Bren Mcarthur RN documented in this encounter Plan of Treatment Not on file documented as of this encounter Visit Diagnoses Diagnosis Encounter for screening for malignant neoplasm of colon- Primary documented in this encounter Care Teams Sfdc Developer Relationship Specialty Start Date End Date Maya Burton ARNP PCP - General Nurse Practitioner 09/16/16 08/01/17 Samanta Tanner ARNP PCP - General Nurse Practitioner 08/02/17 10/28/17 Vibha Wagoner ARNP PCP - General Family Medicine 10/29/17 12/21/17 Joyce Marcos ARNP [address] [facility] [address] [place], [place] [phone] PCP - General Nurse Practitioner 12/22/17 02/21/19 Melvin Padilla ARNP [address] [place], [place] [phone] PCP - General Nurse Practitioner 02/22/19 07/14/20 Joyce Marcos ARNP [address] [facility] [address] [facility] [address] [place], [place] [id number] PCP - General Nurse Practitioner 07/15/20 documented as of this encounter
--- OUTSIDE RECORDS SUMMARY | 2024-10-16 08:25 | XMS_ITS | Encounter Summary ---
Author Organization [facility] Address [address] [place] [address] Care Team Providers Care Crane Mechanic Name Role Phone Maya Burton Primary Care Provider Samanta Tanner [facility] Primary Care Provider Vibha Wagoner [facility] Primary Care Provider [phone] Joyce Marcos [facility] Primary Care Provider [phone]- [phone] Melvin Padilla [facility] Primary Care Provider [phone] Joyce Marcos [facility] Primary Care Provider [phone]- [phone] Reason for Referral * Consultation (Routine) - Closed Specialty Diagnoses / Procedures Referred By Mario Alberto li Referred To Contact Sleep Medicine / Pulmonology Diagnoses Sleep apnea, unspecified type Maya Burton ARNP Phone: tel: fax: [facility] Pulmonary and Sleep Medicine [address] [address] Phone: tel: fax: Referral ID Status Reason Start Date Expiration Date V isits Requested Visits Authorized [id number] Closed Specialty Services Required 01/05/2017 01/05/2018 1 1 Encounter Details Date Type Department Care Team (Latest Contact Info) Description 01/05/2017 Order Supervisor Case Loading [facility] Pulmonary and Sleep Medicine [address] [phone] Maya Burton ARNP [address] [place] [address] Sleep apnea, unspecified type (Primary Dx) Social History Tobacco Use [...] Scheduled Referrals Name Type Priority Associated Diagnoses Orde r Schedule Ambulatory referral to Sleep Medicine Outpatient Referral Routine Sleep apnea, unspecified type Ordered: 01/05/2017 documented as of this encounter Visit Diagnoses Diagnosis Sleep apnea, unspecified type- Primary documented in this encounter Care Teams Crane Mechanic Relationship Specialty Start Date End Date Maya Burton ARNP PCP - General Nurse Practitioner 09/16/16 08/01/17 Samanta Tanner ARNP PCP - General Nurse Practitioner 08/02/17 10/28/17 Vibha Wagoner ARNP PCP - General Family Medicine 10/29/17 12/21/17 Joyce Marcos ARNP [address] [id number] PCP - General Nurse Practitioner 12/22/17 02/21/19 Melvin Padilla ARNP [address] [facility] [address] [address] PCP - General Nurse Practitioner 02/22/19 07/14/20 Joyce Marcos ARNP [address] [facility] [address] [address]226 PCP - General Nurse Practitioner 07/15/20 documented as of this encounter
--- OUTSIDE RECORDS SUMMARY | 2024-10-16 08:25 | XMS_ITS | Encounter Summary ---
Author Organization [facility] Address [address] [place] [address] Care Team Providers Care Fiber Optic Central Office Installer Name Role Phone Meir Echeverria MD Primary Care Provider Maya Burton [facility] Primary Care Provider Samanta Tanner [facility] Primary Care Provider Vibha Wagoner [facility] Primary Care Provider Joyce Marcos [facility] Primary Care Provider [phone] Melvin Padilla [facility] Primary Care Provider [phone] Joyce Marcos [facility] Primary Care Provider [phone]- [phone] Reason for Visit * Reason Comments Other Encounter Details Date Type Department Care Team (Late st Contact Info) Description 10/10/2015 Refill [facility] - Primary Care [address] [place] [phone] Meir Echeverria MD [address] [place] [address] Social History Tobacco Use Types Packs/Day Years [...] Activities Answer Date of Assessment Author Yes 03/08/2014 9:43 PM PST Krystle Curran RN * Patient's Judgement Adequate to Safely Complete Daily Activities Answer Date of Assessment Author Yes 03/08/2014 9:43 PM Krystle Edwards RN documented as of this encounter Mental Status * Patient's Memory Adequate to Safely Complete Daily Activities Answer Entry Date Author Yes 03/08/2014 9:43 PM Krystle Edwards RN documented in this encounter Plan of Treatment Not on file documented as of this encounter Visit Diagnoses Not on filedocumented in this encounter Care Teams Fiber Optic Central Office Installer Relationship Specialty Start Date End Date Meir Echeverria MD PCP - General Family Medicine 08/07/15 09/15/16 Maya Burton ARNP PCP - General Nurse Practitioner 09/16/16 08/01/17 Samanta Tanner ARNP PCP - General Nurse Practitioner 08/02/17 10/28/17 Vibha Wagoner ARNP PCP - General Family Medicine 10/29/17 12/21/17 Joyce Marcos ARNP [address] [address] PCP - General Nurse Practitioner 12/22/17 02/21/19 Melvin Padilla ARNP [address] [facility] [address] [place], [place] [phone] PCP - General Nurse Practitioner 02/22/19 07/14/20 Joyce Marcos ARNP [address] [facility] [address] [place], [place] [phone] PCP - General Nurse Practitioner 07/15/20 documented as of this encounter
--- OUTSIDE RECORDS SUMMARY | 2024-10-16 08:25 | XMS_ITS | Encounter Summary ---
Author Organization [facility] Address [address] [place] [address] Care Team Providers Care Track Machine Operator Repairer Name Role Phone Maya BurtonP Primary Care Provider Samanta Tanner [facility] Primary Care Provider Vibha Wagoner [facility] Primary Care Provider Joyce Marcos [facility] Primary Care Provider [phone] Melvin Padilla [facility] Primary Care Provider [phone] Joyce Marcos [facility] Primary Care Provider [phone]- [phone] Encounter Details Date Type Department Care Team (Late st Contact Info) Description 04/18/2017 Order Manager Acquisition [facility] Pulmonary and Sleep Medicine [address] [address] Bertin Joyner MD [address] [facility] [place], [place] [id number] Social History Tobacco Use Types Packs/Day Years [...] on filedocumented in this encounter Care Teams Track Machine Operator Repairer Relationship Specialty Start Date End Date Maya Burton ARNP PCP - General Nurse Practitioner 09/16/16 08/01/17 Samanta Tanner ARNP PCP - General Nurse Practitioner 08/02/17 10/28/17 Vibha Wagoner ARNP PCP - General Family Medicine 10/29/17 12/21/17 Joyce Marcos ARNP [address] [place] [address] [place], [place] [phone] PCP - General Nurse Practitioner 12/22/17 02/21/19 Melvin Padilla ARNP [address] [place] [address] [place], [place] [address] PCP - General Nurse Practitioner 02/22/19 07/14/20 Joyce Marcos ARNP [address] [facility] [address] [place] [address] PCP - General Nurse Practitioner 07/15/20 documented as of this encounter
--- OUTSIDE RECORDS SUMMARY | 2024-10-16 08:25 | XMS_ITS | Encounter Summary ---
Author Organization [facility] Address [address] [place] [address] Care Team Providers Care Alignment Specialist Name Role Phone Karina Mccann Primary Care Provider Meir Echeverria MD Primary Care Provider Ish DeniseP Primary Care Provider Unava ilable Meir Echeverria MD Primary Care Provider Woo Small MD Primary Care Provider Meir Echeverria MD Primary Care Provider Maya BurtonP Primary Care Provider Samanta Tanner [facility] Primary Care Provider Vibha WagonerP Primary Care Provider Joyce MarcosP Primary Care Provider [phone] Melvin Padilla Primary Care Provider [phone] Joyce MarcosP Primary Care Provider [phone]- [phone] Encounter Details Date Type Department Care Team (Late st Contact Info) Description 10/08/2013 Orders Only [facility] - Primary Care [address] [place] [phone] Bria Roland, CLT [address] [address] Social History Tobacco Use Types Packs/Day Years Used Date Smoking Tobacco: Former Cigarettes Q uit: 09/10/2013 Alcohol Use Standard Drinks/Week Comments No 0 (1 standard drink = 0.6 oz pur e alcohol) Comments Unknown Sex and Gender Information Value Date Recorded Sex Assigned at Female 03/28/2023 12:41 PM PST Legal Sex Female 11:55 AM PDT Gender Identity Cis or Cisgender 03/28/2023 12:4 1 PM PST Sexual Orientation Straight 03/28/2023 12 :41 PM PST documented as of this encounter Plan of Treatment Not on file documented as of this encounter Visit Diagnoses Not on filedocumented in this encounter Care Teams Alignment Specialist Relationship Specialty Start Date End Date Karina Mccann ARNP PCP - General Nurse Practitioner 10/08/13 11/15/13 Meir Echeverria MD PCP - General Family Medicine 11/16/13 03/25/14 Ish Denise ARNP PCP - General 03/26/14 04/04/14 Meir Echeverria MD PCP - General Family Medicine 04/05/14 07/21/15 Woo Small MD [address] [place] [phone] PCP - General Internal Medicine 07/22/15 08/06/15 Meir Echeverria MD PCP - General Family Medicine 08/07/15 09/15/16 Maya Burton ARNP [address] [place] [phone] PCP - General Nurse Practitioner 09/16/16 08/01/17 Samanta Tanner ARNP [address] [place] [phone] PCP - General Nurse Practitioner 08/02/17 10/28/17 Vibha Wagoner ARNP [address] [place] [phone] PCP - General Family Medicine 10/29/17 12/21/17 Joyce Marcos ARNP [address] [facility] [address] [place], [place] [phone] PCP - General Nurse Practitioner 12/22/17 02/21/19 Melvin Padilla ARNP [address] [facility] [address] [place], [place] [phone] PCP - General Nurse Practitioner 02/22/19 07/14/20 Joyce Marcos ARNP [address] [facility] [address] [place], [place] [address] PCP - General Nurse Practitioner 07/15/20 documented as of this encounter
--- OUTSIDE RECORDS SUMMARY | 2024-10-16 08:25 | XMS_ITS | Encounter Summary ---
Author Organization [facility] Address [address] [place] [address] Phone Care Team Providers Care Floor Inspector Name Role Phone Hiro Eldridge MD Primary Care Provider [phone] Encounter Details Date Type Department Care Team (Late st Contact Info) Description 05/19/2023 Procedure [facility] [address] [place] [address] Social History Tobacco Use Types Packs/Day Years [...] Description 08/14/2025 10:00 AM EDT Office Visit [facility] [place] [address] [facility] [address] [place] [address] Marcin Alaniz MD, PhD [address] [facility] [place] [address] [email or web address] documented as of this encounter Visit Diagnoses Not on filedocumented in this encounter Care Teams Floor Inspector Relationship Specialty Start Date End Date Po, Hiro Harper MD [address] [place] [address] [place] [phone] PCP - General Internal Medicine 01/22/23 documented as of this encounter Additional Source Comments The information contained in this document represents components of the legal health record. It is not the complete legal health record.[facility]
--- OUTSIDE RECORDS SUMMARY | 2024-10-16 08:25 | XMS_ITS | Encounter Summary ---
Author Organization [facility] Address [address] [facility] [address] [place] [address] Phone Care Team Providers Care Sports Agent Name Role Phone Hiro Eldridge MD Primary Care Provider [phone] Encounter Details Date Type Department Care Team (Late st Contact Info) Description 05/19/2023 Ancillary Orders [facility] [facility] [address] [facility] [place] [address] George Yusuf MD [address] [place] [address] [email or web address] BONIFACIO (acute kidney injury) (Primary Dx) Social History Tobacco Use Types [...] Description 08/14/2025 10:00 AM EDT Office Visit [facility] [place] [address] [facility] [address] [place] [address] Marcin Alaniz MD, PhD [address] [facility] Department [place] [address] [email or web address] documented as of this encounter Results * [place] FLUOROSCOPY (05/19/2023 5:08 PM EDT) Narrative [facility] - 05/19/2023 5:09 PM EDT This imaging order was used as part of an OR case and the order has been auto-finalized. us George Yusuf MD [facility] Final Result [facility] documented in this encounter Visit Diagnoses Diagnosis BONIFACIO (acute kidney injury)- Primary documented in this encounter Care Teams Sports Agent Relationship Specialty Start Date End Date Po, Hiro Harper MD [address] [facility] [address] [place] [phone] PCP - General Internal Medicine 01/22/23 documented as of this encounter Additional Source Comments The information contained in this document represents components of the legal health record. It is not the complete legal health record.[facility]
--- OUTSIDE RECORDS SUMMARY | 2024-10-16 08:25 | XMS_ITS | Encounter Summary ---
Author Organization [facility] Address [address] [place] [address] Care Team Providers Care Complex Care Nurse Practitioner Name Role Phone Meir Echeverria MD Primary Care Provider Maya Burton [facility] Primary Care Provider Samanta Tanner [facility] Primary Care Provider Vibha Wagoner [facility] Primary Care Provider [phone] Joyce Marcos [facility] Primary Care Provider [phone] Melvin Padilla [facility] Primary Care Provider Joyce Marcos [facility] Primary Care Provider Reason for Referral * Consultation (Urgent) - Closed Specialty Diagnoses / Procedures [facility] To Contact Sleep Medicine / Pulmonology Diagnoses Daytime somnolence Snoring Insomnia, unspecified type Woo Small MD [address] [place] [phone] Phone: tel: fax: [facility] Pulmonary and Sleep Medicine [address] [phone] Phone: tel: fax: Referral ID Status Reason Start Date Expiration Date V isits Requested Visits Authorized [id number] Closed Specialty Services Required 09/25/2015 09/24/2016 1 1 Encounter Details Date Type Department Care Team (Latest Contact Info) Description 09/25/2015 Order Packing Room Supervisor [facility] Pulmonary and Sleep Medicine [address] [place] [address] Woo Small MD [address] [place] [phone] Daytime somnolence (Primary Dx); Snoring; Insomnia, unspecified type Social History Tobacco Use Types Packs/Day Years [...] Yes 03/08/2014 9:43 PM Krystle Edwards RN * Patient's Judgement Adequate to Safely [...] Ambulatory referral to Sleep Medicine Outpatient Referral DORIAN Daytime somnolence Snoring Insomnia, unspecified type Ordered: 09/25/2015 documented as of this encounter Visit Diagnoses Diagnosis Daytime somnolence- Primary Snoring Other dyspnea and respiratory abnormality Insomnia, unspecified type documented in this encounter Care Teams Complex Care Nurse Practitioner Relationship Specialty Start Date End Date Meir Echeverria MD PCP - General Family Medicine 08/07/15 09/15/16 Maya Burton ARNP PCP - General Nurse Practitioner 09/16/16 08/01/17 Samanta Tanner ARNP PCP - General Nurse Practitioner 08/02/17 10/28/17 Vibah Wagoner ARNP PCP - General Family Medicine 10/29/17 12/21/17 Joyce Marcos ARNP [address] [facility] [address] [place] [address] PCP - General Nurse Practitioner 12/22/17 02/21/19 Melvin Padilla ARNP [address] [place] [address] PCP - General Nurse Practitioner 02/22/19 07/14/20 Joyce Marcos ARNP [address] [facility] [address] [place] [address] PCP - General Nurse Practitioner 07/15/20 documented as of this encounter
== END 2024-10-16 09:39 | disposition home or self-care (01) ==
LOC: HO.HSMS 08:16
PROVIDERS: PCP Internal Medicine; Visit Provider Nurse Practitioner Family
DX: R25.1 Tremor, unspecified (principal); R43.8 Other disturbances of smell and taste; R25.9 Unspecified abnormal involuntary movements; G43.009 Migraine without aura, not intractable, without status migrainosus; G61.81 Chronic inflammatory demyelinating polyneuritis; R11.2 Nausea with vomiting, unspecified; Z59.00 Homelessness unspecified
CPT/HCPCS: 99214

== ENCOUNTER 2024-11-16 11:14 | Outpatient (AMB) | payer OTHER, SELFPAY ==
--- NOTE | 2024-11-16 11:15 | MHC.PC.OV ---
Intake Visit Reasons: medication f/u Allergies cephalexin (From Keflex) Allergy (Intermediate, Verified 10/16/24 08:17) Anaphylaxis meloxicam Adverse Reaction (Intermediate, Verified 10/16/24 08:17) Nausea and Vomiting pregabalin (From Lyrica) Adverse Reaction (Unknown, Verified 10/16/24 08:17) Depression Medication List - Last Reconciled 11/16/24 by Hiro Eldridge MD [ADULT DIAPER HEAVY ABSORBENCY XXL Urinary Incontinence] albuterol sulfate 2.5 mg (3 mL) inhalation QID PRN albuterol sulfate 90 mcg/actuation (Ventolin HFA) 1 inh inhalation QID 30 days amitriptyline 10 - 20 mg (1 - 2 x 10 mg) PO BEDTIME 30 days [BED PADS 523 x 36 Disposable BLUE BED PADS 523 x 36 Disposable BLUE] [BLOOD PRESSURE KIT As directed] budesonide-formoterol 160-4.5 mcg/actuation (Symbicort) 1 inh inhalation BID 90 days cholecalciferol (vitamin D3) 50 mcg PO DAILY dexamethasone 0.5 mg PO BID diazepam 5 mg PO BEDTIME PRN galcanezumab-gnlm (Emgality Pen) 120 mg subcut QMONTH 3 months immun glob F-jmm-mwtp-IgA 0-50 10 gram (Gammagard S-D (IgA < 1 mcg/mL)) 40 grams IV Q4W [LARGE GRAB BAR 32 Large] lidocaine HCl 2% 15 mL PO BID PRN 30 days MDD 30ml lisinopril 10 mg PO DAILY 90 days miscellaneous medical supply As directed montelukast 10 mg PO DAILY 90 days nebulizers (Aeroneb Go Nebulizer) As directed pantoprazole 40 mg PO DAILY polyethylene glycol 3350 (Miralax) 17 grams PO BID PRN rizatriptan 5 - 10 mg (0.5 - 1 x 10 mg) PO Q2H PRN 100 days sucralfate (Carafate) 1 g PO BID tiotropium bromide (Spiriva with HandiHaler) 1 cap inhalation DAILY topiramate (Topamax) 50 mg PO BID Tobacco use date assessed: 11/16/24 Dental Screening Dental Screen Date: 05/12/23 [facility] Medical History Small fiber neuropathy CIDP (chronic inflammatory demyelinating polyneuropathy) HTN (hypertension) COPD (chronic obstructive pulmonary disease) Subclinical hyperthyroidism GERD (gastroesophageal reflux disease) PUD (peptic ulcer disease) Impaired fasting blood sugar Personal history of nicotine dependence DJD (degenerative joint disease) Bilateral primary osteoarthritis of hip Migraine without aura Morbid obesity with BMI of 45.0-49.9, adult Surgical History History of cataract surgery (~11/2021) History of tonsillectomy (~1977) History of shoulder surgery (~2005) History of left oophorectomy (~1991) History of cholecystectomy (~2004) Family History Father Mental health disorder Heart attack Mother Mental health disorder Heart attack CVA (cerebral vascular accident) Sister Mental health disorder Hypertension Depression Daughter Thyroid condition Social History Housing: Apartment Alcohol intake: current Alcohol intake frequency: holidays/special occasions only Patient Tobacco Use Status: Former Tobacco user Tobacco use type: Cigarette Years Smoked: quit 2013 2 pack a day 16 years old start e-Cigarette/Vaping Use: Never Used Second Hand Smoke Exposure: No Substance Use Type: Marijuana service: No Current occupational status: unemployed and disabled Cognitive needs: No Hearing needs: No Vision needs: Yes (Glasses) Questionnaire Thrive Questionnaire Date Thrive assessed: 11/09/24 I am a: Patient What is your living situation today?: I choose not to answer this question Within the past 12 months, did the food you bought not last and you didn't have the money to get more?: I choose not to answer this question Within the past 12 months, did you worry whether your food would run out before you got money to buy more?: I choose not to answer this question Do you have trouble paying for medicines?: I choose not to answer this question Do you have trouble getting transportation to medical appointments?: I choose not to answer this question Do you have trouble paying your heating and electricity bill?: I choose not to answer this question Do you have trouble taking care of your child, family member or friend?: I choose not to answer this question Do you have trouble with day-to-day activities such as bathing, preparing meals, shopping, managing finances, etc.?: I choose not to answer this question Are you currently unemployed and looking for a job?: I choose not to answer this question Are you interested in more education?: I choose not to answer this question Please select the resources that you would like help with: None Currently or been in a relationship where the following occur: I choose not to answer THRIVE Score: 0 AUDIT C Alcohol Use Questionnaire (AUDIT-C) 1. How often do you have a drink containing alcohol?: Never Total Score: 0 KEVIN-7 AMB Questionnaire KEVIN-7 Date KEVIN - 7 assessed: 05/12/23 Feeling nervous, anxious, or on edge: 0 = Not at all Not being able to stop or control worryin = Not at all Worrying too much about different things: 0 = Not at all Trouble relaxin = Not at all Being so restless that it is hard to sit still: 0 = Not at all Becoming easily annoyed or irritable: 0 = Not at all Feeling afraid as if something awful might happen: 0 = Not at all Total KEVIN-7 score (0-4 normal; 5-9 mild; 10-14 moderate; 15-21 severe): 0 Source: Developed by Drs. George Bower, Aaliyah Byrd, Zeus Metzger and colleagues, with an educational gabi from [employer]. Physical exam (Primary Care) Tobacco/Smoking Status: Tobacco use Status Tobacco use date assessed 11/16/24 11/16/24 11:21 Patient Tobacco Use Status Former Tobacco user 11/16/24 11:21 Tobacco use type Cigarette 11/16/24 11:21 e-Cigarette/Vaping Use Never Used 11/16/24 11:21 Thrive Assessment: Date of Thrive Assessment Date Thrive assessed 11/09/24 11/16/24 11:21 Currently or been in a relationship where the following occur: I choose not to answer Telehealth Telehealth Telehealth Platform: Telephone Location of provider rendering services: practice address Location of patient: address on file Patient Identification confirmed using: Name, : Yes Telehealth method: video ([id number]) Patient verbally consented to treatment: Yes Patient verbally consented to billing insurance company: Yes Patient informed of any privacy concerns related to visit: Yes Minutes spent on Phone/Video with Pt.: 25 Coding Level of Care Code Tele Est Pt Level 4 (54918) Diagnoses Long QT syndrome I45.81 Primary hypertension I10 Hypertension type: primary hypertension Impaired fasting blood sugar R73.01 Gastroesophageal reflux disease without esophagitis K21.9 Esophagitis presence: without esophagitis Migraine without aura and without status migrainosus, not intractable G43.009 Intractability: not intractable Status migrainosus presence: without status migrainosus CIDP (chronic inflammatory demyelinating polyneuropathy) G61.81 Simple chronic bronchitis J41.0 COPD type: chronic bronchitis Chronic bronchitis type: simple MDD (major depressive disorder), recurrent episode, moderate F33.1 Bilateral primary osteoarthritis of hip M16.0 Assessment & Plan Assessment & Plan (1) Long QT syndrome: Code(s): I45.81 - Long QT syndrome Category: Medical Plan: Patient has an upcoming schedule with cardiology November. (2) HTN (hypertension): Code(s): I10 - Essential (primary) hypertension Category: Medical Qualifiers: Hypertension type: primary hypertension Qualified Code(s): I10 - Essential (primary) hypertension Plan: Continue with blood pressure medication. Decrease salt intake and exercise patient is on lisinopril 10 mg once a day (3) Impaired fasting blood sugar: Code(s): R73.01 - Impaired fasting glucose Category: Medical Plan: Decrease the amount of carbohydrate intake, pasta, bread, rice and potatoes are all sugar and that is aside from all the sweet stuff, remember that fruits are good but they are Sweet also. (4) GERD (gastroesophageal reflux disease): Code(s): K21.9 - Gastro-esophageal reflux disease without esophagitis Category: Medical Qualifiers: Esophagitis presence: without esophagitis Qualified Code(s): K21.9 - Gastro-esophageal reflux disease without esophagitis Plan: Avoid the foods that causes that usually spicy foods, tomato products, juices, coffee, soda and foods that your sensitive to. After eating do not lie down, allow 3-4 hours before in lie down. And keep the head of bed above 30 degrees to avoid the acid from going up. (5) Migraine without aura: Code(s): G43.009 - Migraine without aura, not intractable, without status migrainosus Category: Medical Qualifiers: Intractability: not intractable Status migrainosus presence: without status migrainosus Qualified Code(s): G43.009 - Migraine without aura, not intractable, without status migrainosus Plan: Patient is being followed up by Neurology placed on Topamax rizatriptan amitriptyline. (6) CIDP (chronic inflammatory demyelinating polyneuropathy): Code(s): G61.81 - Chronic inflammatory demyelinating polyneuritis Category: Medical Plan: Patient is being followed up by [facility] and has been receiving the IVIG but I do not have records of this. (7) COPD (chronic obstructive pulmonary disease): Code(s): J44.9 - Chronic obstructive pulmonary disease, unspecified Category: Medical Qualifiers: COPD type: chronic bronchitis Chronic bronchitis type: simple Qualified Code(s): J41.0 - Simple chronic bronchitis Plan: Patient is on Symbicort Spiriva and albuterol (8) MDD (major depressive disorder), recurrent episode, moderate: Code(s): F33.1 - Major depressive disorder, recurrent, moderate Category: Medical Plan: Patient has been tapering her medications on her own. Declined referral for counseling (9) Bilateral primary osteoarthritis of hip: Comment: September 2022Moderate to severe left and mild to moderate right osteoarthritis of the hips. Code(s): M16.0 - Bilateral primary osteoarthritis of hip Category: Medical Plan History of Present Illness The patient is a 64-year-old female presenting with multiple chronic conditions and preventative care needs. The patient has a history of lumbar degenerative disc disease, generalized anxiety disorder, migraine, gastroesophageal reflux disease (GERD), and chronic obstructive pulmonary disease (COPD). She also has hypertension, chronic inflammatory demyelinating polyneuopathy (CIDP), and long QT syndrome. The patient reports autonomic neuropathy, which has advanced significantly, affecting her digestive system and causing daily nausea and vomiting. She experiences hypertensive crises during vomiting episodes and uses Valium for nausea management. The patient is homeless, currently staying with a friend, and is seeking stable housing with assistance from her insurance company. She has a rvhg-uk-rcvc condition in both hips, causing severe pain and mobility issues, and is seeking a second opinion for potential hip replacement surgery. The patient cannot take pain medication due to concerns about constipation exacerbating her vomiting. Recent blood work showed elevated blood glucose and mild hyponatremia. The patient has a history of depression and has been tapering off her antidepressants, specifically Zoloft, due to perceived ineffectiveness. She is considering trying fluoxetine (Prozac) as an alternative. Review of Systems - Neurological: Reports tremors and dystonic contractures. Denies recent seizures. - Gastrointestinal: Reports daily nausea and vomiting, worsened by constipation. Denies diarrhea. - Musculoskeletal: Reports severe hip pain and mobility issues. Denies recent falls. - Psychiatric: Reports depression and anxiety. Denies suicidal ideation. Plan Patient was informed and verbally consented to the use of an ambient scribe for clinic note documentation during this visit. 1. Autonomic Neuropathy The patient is experiencing significant progression of autonomic neuropathy, affecting her digestive system and causing daily nausea and vomiting. She is currently using Valium for nausea management, which has been effective in controlling hypertensive crises during vomiting episodes. Continued monitoring and management of symptoms are necessary, with potential adjustments to medication as needed. 2. Ajdk-Fd-Omzq Hip Condition The patient has a nvfp-bb-rmny condition in both hips, causing severe pain and mobility issues. She is seeking a second opinion for potential hip replacement surgery, as her current orthopedic surgeon has declined surgery due to fall risk associated with her neuropathy. A referral to [facility] has been made for further evaluation and management. 3. Elevated Blood Glucose Recent blood work indicated elevated blood glucose levels, which may be influenced by her dietary habits during vomiting episodes. The patient is advised to monitor her blood sugar levels and consider dietary modifications to prevent the development of diabetes. An A1c test has been recommended to assess her glycemic control. 4. Depression The patient has a history of depression and has been tapering off Zoloft due to perceived ineffectiveness. She is considering starting fluoxetine (Prozac) as an alternative treatment. A referral for therapy has been discussed to provide additional support. Discussion Notes During the consultation, we discussed the progression of the patient's autonomic neuropathy and its impact on her daily life, including nausea and vomiting management with Valium. We also addressed her edry-nr-jzfi hip condition, exploring the option of a second opinion for potential hip replacement surgery. The patient's elevated blood glucose levels were reviewed, and dietary modifications were suggested to prevent diabetes. We discussed her history of depression and the potential switch from Zoloft to fluoxetine, along with a referral for therapy. Patient Instructions - Monitor blood sugar levels and consider dietary changes to prevent diabetes. - Follow up with [facility] for a second opinion on hip replacement surgery. - Continue using Valium for nausea management as needed. - Schedule an appointment for an A1c test to assess glycemic control. - Consider starting fluoxetine (Prozac) for depression and follow up with therapy. Orders: Orders Comprehensive Met. Panel Today R73.01 - Impaired fasting glucose Free T4 (Free Thyroxine) Today R73.01 - Impaired fasting glucose Hemoglobin A1c Today R73.01 - Impaired fasting glucose Vitamin D 25-OH Total Today R73.01 - Impaired fasting glucose UA CC w/rflx Micro + Cult Today R30.0 - Dysuria, R73.01 - Impaired fasting glucose Complete Blood Count Auto Diff Today R73.01 - Impaired fasting glucose Thyroid Stimulating Hormone Today R73.01 - Impaired fasting glucose Lipid Panel Today E78.00 - Pure hypercholesterolemia, unspecified, R73.01 - Impaired fasting glucose Vitamin B12 and Folate Today R73.01 - Impaired fasting glucose Erythrocyte Sedimentation Rate Today R73.01 - Impaired fasting glucose C Reactive Protein Today R73.01 - Impaired fasting glucose Referrals Psychiatry Referral F33.1 - Major depressive disorder, recurrent, moderate Orthopedics Referral M16.0 - Bilateral primary osteoarthritis of hip Medications: New fluoxetine 10 mg PO DAILY 30 tabs 2RF F33.1 - Major depressive disorder, recurrent, moderate diazepam Only taking when she is nauseous. Not using at bedtime. 5 mg PO BEDTIME PRN 90 tabs 0RF anxiety F33.1 - Major depressive disorder, recurrent, moderate fluoxetine 10 mg PO DAILY 90 tabs 2RF F33.1 - Major depressive disorder, recurrent, moderate Changed From dexamethasone 0.5 mg PO BID M16.0 - Bilateral primary osteoarthritis of hip To dexamethasone for IVIG 0.5 mg PO BID M16.0 - Bilateral primary osteoarthritis of hip From polyethylene glycol 3350 (Miralax) 3 packets a day. 17 grams PO BID PRN constipation F33.1 - Major depressive disorder, recurrent, moderate To polyethylene glycol 3350 (Miralax) 3 packets a day. 51 grams PO .QD PRN 100 ea 3RF constipation F33.1 - Major depressive disorder, recurrent, moderate From topiramate (Topamax) 25 mg PO BID 90 days 180 tabs 1RF To topiramate (Topamax) 50 mg PO BID
--- OUTSIDE RECORDS SUMMARY | 2024-11-16 13:02 | XMS_ITS | Encounter Summary ---
Author Organization [facility] Address [address] [place] [address] Care Team Providers Care Methods Specialist Engineer Name Role Phone Maya BurtonP Primary Care Provider Samanta Tanner [facility] Primary Care Provider Vibha Wagoner [facility] Primary Care Provider [phone] Joyce Marcos [facility] Primary Care Provider [phone] Melvin Padilla [facility] Primary Care Provider [phone] Joyce Marcos [facility] Primary Care Provider [phone] Encounter Details Date Type Department Care Team (Late st Contact Info) Description 04/06/2017 Lab Requisition [facility] [address] [id number] Nichole Nino MD [address] [address] Hydronephrosis; Hypokalemia; Essential (primary) hypertension; [...] BASIC METABOLIC PANEL Today 04/06/2017 11:54 AM [facility] Hydronephrosis Hypokalemia Essential (primary) hypertension Abdominal pain documented in this encounter Results * Urinalysis with culture, if indicated (04/06/2017 11:54 AM PST) Color Yellow Colorless, Straw, Yellow 04/06/2017 4:[address] [facility] Clarity Clear Clear 04/06/2017 4:[address] [facility] Glucose Negative Negative 04/06/2017 4:[address] [facility] Protein Negative Negative, Trace 04/06/2017 4:[address] [facility] Bilirubin Negative Negative 04/06/2017 4:[address] [facility] Urobilinogen <2.0 <2.0 mg/dL mg/dL 04/06/2017 4:[address] [facility] pH 7.0 5.0 - 8.0 04/06/2017 4:[address] [facility] Blood Negative Negative 04/06/2017 4:[address] [facility] Ketones Urine Negative Negative 04/06/2017 4:[address] [facility] Nitrite Negative Negative 04/06/2017 4:[address] [facility] Leukocyte Esterase Negative Negative 04/06/2017 4:[address] [facility] Specific [place] 1.004 1.001 - 1.030 04/06/2017 4:[address] [facility] Urine 04/06/2017 11:5 4 AM PST 04/06/2017 11:54 AM [facility] Narrative [facility] - 04/06/2017 4:06 PM [facility] Microscopic examination of urinary sediment not indicated. Result [facility] Nichole Nino MD URINE ORDERABLES Final Result [facility] [address] [phone] * (ABNORMAL) Basic metabolic panel (04/06/2017 11:54 AM [facility]) Sodium 144 135 - 145 mmol/L 04/06/2017 4:[address] [facility] Potassium 4.6 3.5 - 5.1 mmol/L 04/06/2017 4:[address] [facility] Chloride 106 98 - 107 mmol/L 04/06/2017 4:[address] [facility] CO2,Total 27 22 - 30 mmol/L 04/06/2017 4:[address] [facility] Anion Gap 11 5 - 16 mmol/L 04/06/2017 4:[address] [facility] Osmolality, Calculated 289 275 - 295 mOsm/K 04/06/2017 4:[address] [facility] Glucose 134(H) 74 - 106 mg/dL 04/06/2017 4:[address] [facility] Calcium 9.4 8.4 - 10.4 mg/dL 04/06/2017 4:[address] [facility] BUN 13 7 - 17 mg/dL 04/06/2017 4:[address] [facility] Creatinine 0.74 0.52 - 1.04 mg/dL 04/06/2017 4:[address] [facility] BUN/Creatinine Ratio 18 7 - 24 04/06/2017 4:[address] [facility] GFR if >90 >=60 mL/min/1.7 3m2 04/06/2017 4:[address] [facility] GFR if not 82 >=60 mL/min/1.7 3m2 04/06/2017 4:[address] [facility] Comment: <60 mL/min/1.73m2 Chronic Kidney Disease <15 mL/min/1.73m2 Kidney failure MDRD formula used for GFR calculation. Not intended for drug dosing decisions. Blood Venipuncture / Unknown 04/06/2017 11:54 AM [facility] 04/06/2017 11:54 AM [facility] Nichole Nino MD LAB BLOOD ORDERABLES Final Resul t [facility] [address] [phone] documented in this encounter Visit Diagnoses Diagnosis Hydronephrosis Hypokalemia Hypopotassemia Essential (primary) hypertension Unspecified essential hypertension Abdominal pain Abdominal pain, unspecified site documented in this encounter Care Teams Methods Specialist Engineer Relationship Specialty Start Date End Date Maya Burton ARNP PCP - General Nurse Practitioner 09/16/16 08/01/17 Samanta Tanner ARNP PCP - General Nurse Practitioner 08/02/17 10/28/17 Vibha Wagoner ARNP PCP - General Family Medicine 10/29/17 12/21/17 Joyce Marcos ARNP [address] [place], [place] [id number] PCP - General Nurse Practitioner 12/22/17 02/21/19 Melvin Padilla ARNP [address] [place], [place] [id number] PCP - General Nurse Practitioner 02/22/19 07/14/20 Joyce Marcos ARNP [address] [facility] [address] [place], [place] [id number] PCP - General Nurse Practitioner 07/15/20 documented as of this encounter
--- OUTSIDE RECORDS SUMMARY | 2024-11-16 13:02 | XMS_ITS | Encounter Summary ---
Author Organization [facility] Address [address] [facility] [address] [place] [phone] Phone Care Team Providers Care Fast Food Crew Member Name Role Phone Hiro Eldridge MD Primary Care Provider [phone] Encounter Details Date Type Department Care Team (Late st Contact Info) Description 05/19/2023 Procedure Pass [facility] Periop [address] [place] [address] Social History Tobacco Use Types Packs/Day Years [...] Description 08/14/2025 10:00 AM EDT Office Visit [facility] [place] [address] [facility] [address] [place] [address] Marcin Alaniz MD, PhD [address] [facility] Department [place] [address] [email or web address] as of this encounter Visit Diagnoses Not on filedocumented in this encounter Care Teams Fast Food Crew Member Relationship Specialty Start Date End Date Chente, Hiro Harper MD [address] [place] [id number] PCP - General Internal Medicine 01/22/23 documented as of this encounter Additional Source Comments The information contained in this document represents components of the legal health record. It is not the complete legal health record.[facility]
--- OUTSIDE RECORDS SUMMARY | 2024-11-16 13:02 | XMS_ITS | Encounter Summary ---
Author Organization [facility] Address [address] [email or web address] [facility] [address] [place] [address] Phone Care Team Providers Care Customer Relations Specialist Name Role Phone Hunter Sotomayor Primary Care Provider + Hunter Sotomayor Primary Care Provider + Hiro Eldridge MD Primary Care Provider [phone] Encounter Details Date Type Department Care Team (Latest Contact Info) Description 01/06/2021 Transcribe Orders Virtual Department [address] [place] [address] Bertin Brown MD [address] [place] [address] [email or web address] Vomiting, intractability of vomiting not specified, presence [...] Description 08/14/2025 10:00 AM EDT Office Visit [facility] [place] [address] [facility] [address] [place] [address] [place] [address] [place] [address] Department [place] [address] [email or web address] documented as of this encounter Results * FL UGI SERIES DOUBLE CONTRAST (01/27/2021 10:15 AM EST) Anatomical Region Laterality Modality Abdomen Computed Radiogr aphy 01/27/2021 10:0 7 AM EST Impressions 01/27/2021 10:29 AM EST Minimal spontaneous gastroesophageal reflux without significant esophageal or gastroduodenal mucosal pathology detected. FLUOROSCOPY TIME: 1 min. 54 sec; 39 IMAGES/FRAMES POS - [id number] Narrative 01/27/2021 10:29 AM EST COMPARISON: None [...] min. 54 sec; 39 IMAGES/FRAMES POS - [id number] Bertin Brown MD IMG FL MISC Final [...] documented as of this encounter Care Teams Customer Relations Specialist Relationship Specialty [place] [address] [place] [address] PCP - General 01/05/21 10/06/21 [place] [address] [place] [address] PCP - General 10/07/21 01/21/23 Hiro Eldridge MD [address] [place] [address] [address] [place] [phone] PCP - General Internal Medicine 01/22/23 documented as of this encounter Additional Source Comments The information contained in this document represents components of the legal health record. It is not the complete legal health record.[facility]
--- OUTSIDE RECORDS SUMMARY | 2024-11-16 13:02 | XMS_ITS | Clinical Summary ---
Author Organization [employer] [facility] Address [address] [place] [address] Care Team Providers Care Water Purifier Operator Name Role Phone Priti Joyceminda VALLECILLO Primary Care Provider [phone] Allergies Active Allergy Reactions Criticality Noted Date [...] (10/26/2016): Added automatically from request for surgery [id number] Elevated glycated hemoglobin 02/15/2016 09/20/2017 Tobacco use [...] hypertension 09/20 Lower abdominal pain 018 Immunizations Immunization Administration Dates Next Due Influenza Four-QIV PF [...] Date Last Done Comments CT Colonography 1962 FOBT/FIT 1962 Fit-DNA (Cologuard) 1962 Sigmoidoscopy 1962 HIV Screening 1977 Hepatitis C Screening 1980 DTAP/TDAP/TD VACCINES (1 - Tdap) 1981 Shingles Vaccine (1 of 2) 2012 Pneumococcal 50+ years (2 of 2 - PCV) 12/05/2014 12/05/2013 CCS PAP ONLY EVERY 3 YEARS ( Age 21-65) 07/12/2018 07/13/2015 (Declined) Lipid Panel 09/21/2020 09/21/2017, 10/17/2013 Breast Cancer Screening 04/20/2021 04/20/19 20, 07/13/2015 (Declined) Respiratory Syncytial Virus (RSV) Adult or (1 - Risk 60-74 years 1-dose series) 2022 Tobacco Cessation and Corale ling (12+) 02/22/2024 03/28/2023 COVID-19 VACCINE (1 - 2023-2 5 season) 2024 Influenza Vaccine (#1) 2024 8, 11/29/2016, 11/21/2016, [...] M.D., rp/brianna:04/25/2019 10:53:39 copy to: Melvin VALLECILLO, [facility], fax: [phone] letter sent: Normal Letter A-B-C Mammogram BI-RADS: [...] made to exam dated: 01/31/2009 mammogram - [facility]. FINDINGS: The breast composition of both [...] is made to exam dated: 01/31/2009 mammogram -[facility]. FINDINGS: The breast composition of both [...] breast malignanciesare mammographically occult. George Saravia M.D. rp/brianna:04/25/2019 10:53:39 copy to: Melvin VALLECILLO, [facility], fax:[phone] letter sent: Normal Letter A-B-C Mammogram BI-RADS: 1 Negative Colt Trujillo MD IM MAMMOGRAPHY ORDERABLES Monique l Result * (ABNORMAL) Lipid panel (09/21/2017 12:38 AM PDT) Cholesterol 166 0 - 199 mg/dL 09/21/2017 9:16 AM PDT [facility] Triglycerides 104 0 - 149 mg/dL 09/21/2017 9:16 AM PDT [facility] HDL Cholesterol 38(L) 40 - 90 mg/dL 09/21/2017 9:16 AM PDT [facility] Chol/HDL-C Ratio 4.4 0.0 - 5.0 09/22/19 9:16 AM PDT [facility] LDL Cholesterol 107 0 - 130 mg/dL 09/21/2017 9:16 AM PDT [facility] LDL, HDL-C Ratio 2.8 (No normals established ) 09/21/2017 9:16 AM PDT [facility] Non HDL Cholesterol,Calc 128 0 - 159 mg/dL 09/21/2017 9:16 AM PDT [facility] Blood Venipuncture / Unknown 09/21/2017 12:38 AM PDT 09/21/2017 12:42 AM PDT Narrative [facility] - 09/21/2017 9:16 AM PDT HDL [...] MD LAB BLOOD ORDERABLES Final Resul t [facility] [address] [place] [address], [facility] [phone] * Screening Colonoscopy - Non-High Risk (11/04/2016 [...] care provider. Procedure Code(s): --- Professional --- 56935, Colonoscopy, flexible; with biopsy, single or multiple Diagnosis Code(s): --- Professional --- Z12.11, Encounter for screening for malignant neoplasm of colon K57.30, Diverticulosis of large intestine without perforation or abscess without bleeding CPT copyright 2014 [employer]. All rights reserved. The codes documented in this report are preliminary and upon dinkey operator slate review may be revised to meet current [...] 1962 Admit Type: Ambulatory Age: 56 Room: [facility]__ Gender: Female Attending MD: Jasmyn Jordan MD [...] oxygen saturations were monitored continuously. The PCF-H190DL [id number] was introduced through the anus and advanced [...] 1962 Admit Type: Ambulatory Age: 56 Room: [place] [address] Gender: Female Attending MD: Jasmyn Jordan MD [...] and oxygen saturations were monitored continuously. ThePCF-H190DL [id number] was introduced through the anus and advancedto [...] care provider. Procedure Code(s): --- Professional --- 11699, Colonoscopy, flexible; with biopsy, single or multiple Diagnosis Code(s): --- Professional --- Z12.11, Encounter for screening for malignantneoplasm of colon K57.30, Diverticulosis of large intestine without perforation or abscess without bleeding CPT copyright 2014 [employer]. All rights reserved. The codes documented in this report are preliminary and upon dinkey operator slate reviewmay be revised to meet current compliance requirements. MD Jasmyn Farah MD 11/04/2016 9:45:48 AM This document has been electronically signed. Number of Addenda: 0 Note Initiated On: 11/04/2016 9:09 AM Procedure/Sedation Begin: 9:13:54 AM Procedure/Sedation Complete: 9:35:37 AM Jasmyn Jordan MD GI PROCEDURE ORDERABLES Final Result Performing Organization Address City/State/[facility] Phone Number PROVATION from Last 3 Months or Most Recently Relevant to Health Maintenance Insurance [address] [place] [address] [facility] MEDICAID MEDICAID OUT OF STATE Advance Directives Documents on File Type Date Recorded Patient Manager Search Engine Expl anation Power of Attorneys 09/21/2017 Ryan [...] Pascual Daughter Health Care Agent Care Teams Water Purifier Operator Relationship Specialty Start Date End Date oJyce Marcos ARNP [address] [facility] [address] [place] [address] PCP - General Nurse Practitioner 07/15/20
--- OUTSIDE RECORDS SUMMARY | 2024-11-16 13:02 | XMS_ITS | Encounter Summary ---
Author Organization [facility] Address [address] [employer] [facility] [address] [place] [address] Phone Care Team Providers Care Station Supervisor Name Role Phone Hiro Eldridge MD Primary Care Provider [phone] Encounter Details Date Type Department Care Team (Late st Contact Info) Description 05/19/2023 Ancillary Orders [facility] [place] and Trauma [address] [facility] [place] [address] George Yusuf MD [address] [place] [address] [email or web address] BONIFACIO (acute kidney injury) (Primary Dx) [...] Description 08/14/2025 10:00 AM EDT Office Visit [facility] Neu[facility] [place] [address] [facility] [address] [place] [address] Marcin Alaniz MD, PhD [address] [facility] [place] [address] [email or web address] documented as of this encounter Results * FL FLUOROSCOPY (05/19/2023 5:08 PM EDT) N[facility]ative [facility] - 05/19/2023 5:09 PM EDT This imaging order was used as part of an OR case and the order has been auto-finalized. us George Yusuf MD [facility] AMIGO Final Result [facility] documented in this encounter Visit Diagnoses Diagnosis BONIFACIO (acute kidney injury)- Primary documented in this encounter Care Teams Station Supervisor Relationship Specialty Start Date End Date Po, Hiro Harper MD 2 [facility] [address] [place] [phone] PCP - General Internal Medicine 01/22/23 documented as of this encounter Additional Source Comments The information contained in this document represents components of the legal health record. It is not the complete legal health record.[facility]
--- OUTSIDE RECORDS SUMMARY | 2024-11-16 13:02 | XMS_ITS | Encounter Summary ---
Author Organization [facility] Address [address] [place] [address] Phone Care Team Providers Care Mechanical Assembler Name Role Phone Hunter Sotomayor Primary Care Provider + Hiro Eldridge MD Primary Care Provider [phone] Encounter Details Date Type Department Care Team (Late st Contact Info) Description 09/08/2022 Procedure Pass [facility] Radiology [address] [place] [address] Social History Tobacco Use Types Packs/Day Years [...] Description 08/14/2025 10:00 AM EDT Office Visit [facility] Neurology at [place] [address] [place] [address] Marcin Alaniz MD, PhD [address] [facility] [place] [address] [email or web address] documented as of this encounter Visit Diagnoses Not on filedocumented in this encounter Care Teams Mechanical Assembler Relationship Specialty Start [place] [address] [place] [address] PCP - General 10/07/21 01/21/23 Hiro Eldridge MD [address] [place] [phone] PCP - General Internal Medicine 01/22/23 documented as of this encounter Additional Source Comments The information contained in this document represents components of the legal health record. It is not the complete legal health record.[facility]
--- OUTSIDE RECORDS SUMMARY | 2024-11-16 13:02 | XMS_ITS | Encounter Summary ---
Author Organization [employer] [facility] Address [address] [place] [address] Care Team Providers Care Duralumin Metalworker Name Role Phone Meir Echeverria MD Primary Care Provider [phone] Ish Denise [facility] Primary Care Provider Unava ilable Meir Echeverria MD Primary Care Provider Woo Small MD Primary Care Provider Meir Echeverria MD Primary Care Provider Maya Burton [facility] Primary Care Provider Samanta Tanner [facility] Primary Care Provider Vibha Wagoner [facility] Primary Care Provider [phone] Joyce Marcos [facility] Primary Care Provider [phone] Melvin Padilla [facility] Primary Care Provider [phone] Joyce MarcosP Primary Care Provider [phone] Reason for Visit * Reason Comments Other Encounter Details Date Type Department Care Team (Late st Contact Info) Description 12/10/[address] [facility] [address] [place] [phone] Meir Echeverria MD [address] [place], [place] [address], [place] [address] Social History Tobacco Use Types Packs/Day Years [...] on filedocumented in this encounter Care Teams Duralumin Metalworker Relationship Specialty Start Date End Date Meir Echeverria MD PCP - General Family Medicine 11/16/13 03/25/14 Ish Denise ARNP PCP - General 03/26/14 04/04/14 Meir Echeverria MD PCP - General Family Medicine 04/05/14 07/21/15 Woo Small MD [address] [place] [phone] PCP - General Internal Medicine 07/22/15 08/06/15 Meir Echeverria MD PCP - General Family Medicine 08/07/15 09/15/16 Maya Burton ARNP [address] [place] [phone] PCP - General Nurse Practitioner 09/16/16 08/01/17 Samanta Tanner ARNP [address] [place] [phone] PCP - General Nurse Practitioner 08/02/17 10/28/17 Vibha Wagoner ARNP [address] [place] [phone] PCP - General Family Medicine 10/29/17 12/21/17 Joyce Marcos ARNP [address] [place], [place] [phone] PCP - General Nurse Practitioner 12/22/17 02/21/19 Melvin Padilla ARNP [address] [place], [place] [phone] PCP - General Nurse Practitioner 02/22/19 07/14/20 Joyce Marcos ARNP [address] [place], [place] [phone] PCP - General Nurse Practitioner 07/15/20 documented as of this encounter
--- OUTSIDE RECORDS SUMMARY | 2024-11-16 13:02 | XMS_ITS | Encounter Summary ---
Author Organization [employer] [facility] Address [address] [place] [address] Care Team Providers Care Strap Stitcher Name Role Phone Maya Burton Primary Care Provider Samanta Tanner [facility] Primary Care Provider Vibha Wagoner [facility] Primary Care Provider Joyce Marcos [facility] Primary Care Provider [phone] Melvin Padilla [facility] Primary Care Provider [phone] Joyce Marcos [facility] Primary Care Provider [phone] Reason for Referral * Consultation (Routine) - Closed Specialty Diagnoses / Procedures Referred By Mario Alberto li Referred To Contact Sleep Medicine / Pulmonology Diagnoses Sleep apnea, unspecified type Maya Burton ARNP Phone: tel: fax: [facility] [address] [phone] Phone: tel: fax: Referral ID Status Reason Start Date Expiration Date V isits Requested Visits Authorized [id number] Closed Specialty Services Required 01/05/2017 01/05/2018 1 1 Encounter Details Date Type Department Care Team (Latest Contact Info) Description 01/05/2017 Order Water Quality Tester [facility] Sleep Medicine [address] [phone] Maya Burton ARNP [address] [place] [address] Sleep apnea, unspecified type (Primary Dx) Social [...] Primary documented in this encounter Care Teams Strap Stitcher Relationship Specialty Start Date End Date Maya Burton ARNP PCP - General Nurse Practitioner 09/16/16 08/01/17 Samanta Tanner ARNP PCP - General Nurse Practitioner 08/02/17 10/28/17 Vibha Wagoner ARNP PCP - General Family Medicine 10/29/17 12/21/17 Joyce Marcos ARNP [address] [phone] PCP - General Nurse Practitioner 12/22/17 02/21/19 Melvin Padilla ARNP [address] [address] [address] PCP - General Nurse Practitioner 02/22/19 07/14/20 Joyce Marcos ARNP [address] [address] PCP - General Nurse Practitioner 07/15/20 documented as of this encounter
--- OUTSIDE RECORDS SUMMARY | 2024-11-16 13:02 | XMS_ITS | Encounter Summary ---
Author Organization [facility] Address [address] [place] [address] Phone Care Team Providers Care Jig And Fixture Maker Name Role Phone Hunter Sotomayor Primary Care Provider + Hiro Eldridge MD Primary Care Provider [phone] Encounter Details Date Type Department Care Team (Late st Contact Info) Description 06/12/2022 Procedure Pass [facility], Ct Scan - [address] [address] Social History Tobacco Use Types Packs/Day Years [...] 9:20 AM EDT Camille Rose, RN * [place] Suicide Severity Rating Scale (Screener/Recent Self-Report) Question [...] Description 08/14/2025 10:00 AM EDT Office Visit [facility] Neurology at [place] [address] [facility] [address] [place] [address] Marcin Alaniz MD, PhD [address] [place] [address] [place] [address] [email or web address] documented as of this encounter Visit Diagnoses Not on filedocumented in this encounter Care Teams Jig And Fixture Maker Relationship Specialty Start Date End Date Hunter Sotomayor PA [address] [place] [address] PCP - General 10/07/21 01/21/23 Hiro Eldridge MD [address] [place] [phone] PCP - General Internal Medicine 01/22/23 documented as of this encounter Additional Source Comments The information contained in this document represents components of the legal health record. It is not the complete legal health record.[facility]
--- OUTSIDE RECORDS SUMMARY | 2024-11-16 13:02 | XMS_ITS | Encounter Summary ---
Author Organization [facility] Address [address] [facility] [address] [place] [address] Phone Care Team Providers Care Tread Tuber Machine Operator Name Role Phone Hunter Sotomayor Primary Care Provider + Hunter Sotomayor Primary Care Provider + Hiro Eldridge MD Primary Care Provider [phone] Reason for Referral * - Closed Specialty Diagnoses / Procedures Referred By Mario Alberto t Referred To Contact Diagnoses Dizziness Procedures Autonomic Testing Hunter Sotomayor PA Phone: tel: fax: Referral ID Status Reason Start Date Expiration Date Visits Re quested Visits Authorized [id number] Closed 01/08/2021 01/08/2022 1 1 Encounter Details Date Type Department Care Team (Late st Contact Info) Description 01/08/2021 Ancillary Orders [facility] [address] [place] [address] Hunter Sotomayor PA [address] [place] [address] Dizziness Social History Tobacco Use Types Packs/Day [...] Description 08/14/2025 10:00 AM EDT Office Visit [facility] Neurology at [place] [address] [facility] [address] [place] [address] Marcin Alaniz MD, PhD [address] [facility] [place] [address] [email or web address] documented as of this encounter Results * [...] documented as of this encounter Care Teams Tread Tuber Machine Operator Relationship Specialty Start Date End Date Hunter Sotomayor PA [address] [place] [address] PCP - General 01/05/21 10/06/21 Hunter Sotomayor PA [address] [place] [address] PCP - General 10/07/21 01/21/23 Hiro Eldridge MD [address] [facility] [address] [place] [phone] PCP - General Internal Medicine 01/22/23 documented as of this encounter Additional Source Comments The information contained in this document represents components of the legal health record. It is not the complete legal health record.[facility]
--- OUTSIDE RECORDS SUMMARY | 2024-11-16 13:02 | XMS_ITS | Encounter Summary ---
Author Organization [facility] Address [address] [place] [address] Care Team Providers Care Court Worker Name Role Phone Samanta Tanner [facility] Primary Care Provider Vibha Wagoner [facility] Primary Care Provider [phone] Joyce Marcos [facility] Primary Care Provider [phone] Melvin Padilla [facility] Primary Care Provider [phone] Joyce Marcos [facility] Primary Care Provider [phone] Reason for Referral * Physical Medicine (Routine) - Closed Specialty Diagnoses / Procedures [facility] To Contact Physical Therapy Diagnoses Low back pain, unspecified back pain laterality, unspecified chronicity, with sciatica presence unspecified Maximino Mooney MD [address] [place] [address] Phone: tel: fax: Referral ID Status Reason Start Date Expiration Date V isits Requested Visits Authorized [id number] Closed Specialty Services Required 08/17/2017 08/17/2018 1 1 Encounter Details Date Type Department Care Team (Latest Contact Info) Description 08/17/2017 Order Early Childhood Associate Teacher [employer] [address] [place] [phone] Maximino Mooney MD [address] [place] [address] Low back pain, unspecified back pain laterality, unspecified chronicity, with sciatica presence unspecified (Primary Dx) Social History Tobacco Use Types [...] Assessment Author Yes 02/16/2016 1:15 PM PST Natalya Lei RN documented as of this encounter Mental Status * Patient's Memory Adequate to Safely Complete Daily Activities Answer Entry Date Author Yes 02/16/2016 1:15 PM PST Bren Lei RN documented in this encounter Plan of Treatment Scheduled Referrals Name Type Priority Associated Diagnoses Orde r Schedule Ambulatory referral to Physical Therapy Outpatient Referral Routine Low back pain, unspecified back pain laterality, unspecified chronicity, with sciatica presence unspecified Ordered: 08/17/2017 documented as of this encounter Visit Diagnoses Diagnosis Low back pain, unspecified back pain laterality, unspecified chronicity, with sciatica presence unspecified- Primary documented in this encounter Care Teams Court Worker Relationship Specialty Start Date End Date Samanta Tanner ARNP PCP - General Nurse Practitioner 08/02/17 10/28/17 Vibha Wagoner ARNP PCP - General Family Medicine 10/29/17 12/21/17 Joyce Marcos ARNP [address] [place], [place] [address] PCP - General Nurse Practitioner 12/22/17 02/21/19 Melvin Padilla ARNP [address] [facility] [address] [place], [place] [address] PCP - General Nurse Practitioner 02/22/19 07/14/20 Joyce Marcos ARNP [address] [place], [place] [address] PCP - General Nurse Practitioner 07/15/20 documented as of this encounter
--- OUTSIDE RECORDS SUMMARY | 2024-11-16 13:02 | XMS_ITS | Clinical Summary ---
Author Organization [facility] Address [address] [place] [address] Care Team Providers Care Erector Operator Name Role Phone Unavailable Primary Care Provider Unavailabl e Social History Tobacco Use Types Packs/Day Years Used Date Smoking Tobacco: Never Assessed Comments Unknown Sex and Gender Information Value Date Recorded Sex Assigned at Not on file Legal Sex Female 4:04 PM PDT Gender Identity Not on file Sexual Orientation Not on file Plan of Treatment Not on file Insurance [facility]
--- OUTSIDE RECORDS SUMMARY | 2024-11-16 13:02 | XMS_ITS | Encounter Summary ---
Author Organization [facility] Address [address] [place] [address] Care Team Providers Care Clam Treader Name Role Phone Karina Mccann Primary Care Provider Meir Echeverria MD Primary Care Provider Ish DeniseP Primary Care Provider Unava ilable Meir Echeverria MD Primary Care Provider Woo Smlal MD Primary Care Provider Meir Echeverria MD Primary Care Provider [phone] Maya BurtonP Primary Care Provider Samanta Tanner [facility] Primary Care Provider Vibha WagonerP Primary Care Provider Joyec MarcosP Primary Care Provider [phone] Melvin Padilla Primary Care Provider [phone] Joyce MarcosP Primary Care Provider [phone] Encounter Details Date Type Department Care Team (Late st Contact Info) Description 10/08/2013 Orders Only [facility] - Primary Care [address] [place] [phone] Bria Roland, CLT [address] [address] Social History Tobacco Use Types Packs/Day Years [...] on filedocumented in this encounter Care Teams Clam Treader Relationship Specialty Start Date End Date Karina Mccann ARNP PCP - General Nurse Practitioner 10/08/13 11/15/13 Meir Echeverria MD PCP - General Family Medicine 11/16/13 03/25/14 Ish Denise ARNP PCP - General 03/26/14 04/04/14 Meir Echeverria MD PCP - General Family Medicine 04/05/14 07/21/15 Woo Small MD [address] [place] [phone] PCP - General Internal Medicine 07/22/15 08/06/15 Meir Echeverria MD PCP - General Family Medicine 08/07/15 09/15/16 Maya Burton ARNP [address] [place] [phone] PCP - General Nurse Practitioner 09/16/16 08/01/17 Samanta Tanner ARNP [address] [place] [phone] PCP - General Nurse Practitioner 08/02/17 10/28/17 Vibha Wagoner ARNP [address] [place] [phone] PCP - General Family Medicine 10/29/17 12/21/17 Joyce Marcos ARNP [address] [facility] [address] [place], [place] [phone] PCP - General Nurse Practitioner 12/22/17 02/21/19 Melvin Padilla ARNP [address] [facility] 140 [place], [place] [phone] PCP - General Nurse Practitioner 02/22/19 07/14/20 Joyce Marcos ARNP [address] [facility] [address] [place], [place] [phone] PCP - General Nurse Practitioner 07/15/20 documented as of this encounter
--- OUTSIDE RECORDS SUMMARY | 2024-11-16 13:02 | XMS_ITS | Encounter Summary ---
Author Organization [facility] Address [address] [place] [address] Phone Care Team Providers Care Casino Floor Supervisor Name Role Phone Hunter Sotomayor Primary Care Provider + Hiro Eldridge MD Primary Care Provider [phone] Encounter Details Date Type Department Care Team (Late st Contact Info) Description 09/17/2022 Transcribe Orders [facility] Interventional Imaging [address] [place] [address] Hunter Sotomayor PA [address] [place] [address] Social History Tobacco Use Types Packs/Day Years [...] Description 08/14/2025 10:00 AM EDT Office Visit [facility] Neurology at [place] [address] [facility] [address] [place] [address] Marcin Alaniz MD, PhD [address] [facility] Department [place] [address] [email or web address] documented as of this encounter Visit Diagnoses Not on filedocumented in this encounter Care Teams Casino Floor Supervisor Relationship Specialty [place] [address] [place] [address] PCP - General 10/07/21 01/21/23 Hiro Eldridge MD [address] [place] [phone] PCP - General Internal Medicine 01/22/23 documented as of this encounter Additional Source Comments The information contained in this document represents components of the legal health record. It is not the complete legal health record.[facility]
--- OUTSIDE RECORDS SUMMARY | 2024-11-16 13:02 | XMS_ITS | Encounter Summary ---
Author Organization [facility] Address [address] [place] [address] Care Team Providers Care Professor Of Theater Name Role Phone Woo Small MD Primary Care Provider Meir Echeverria MD Primary Care Provider Maya Burton [facility] Primary Care Provider Samanta Tanner [facility] Primary Care Provider Vibha Wagoner [facility] Primary Care Provider [phone] Joyce Marcos [facility] Primary Care Provider [phone] Melvin Padilla [facility] Primary Care Provider [phone] Joyce Marcos [facility] Primary Care Provider [phone]- [phone] Reason for Visit * Reason Onset Date Comments Medication Refill 07/23/2015 Encounter Details Date Type Department Care Team (Late st Contact Info) Description 07/23/2015 Refill [facility] [place] [phone] Bee Gonsalez MD [address] [facility] [address] [place] [phone] Social History Tobacco Use Types Packs/Day Years [...] 03/08/2014 9:43 PM PST Krystle Curran RN documented as of this encounter Mental Status * Patient's Memory Adequate to Safely Complete Daily Activities Answer Entry Date Author Yes 03/08/2014 9:43 PM Krystle Edwards RN documented in this encounter Plan of Treatment Not on file documented as of this encounter Visit Diagnoses Not on filedocumented in this encounter Care Teams Professor Of Theater Relationship Specialty Start Date End Date Woo Small MD [address] [place] [phone] PCP - General Internal Medicine 07/22/15 08/06/15 Meir Echeverria MD [address] [place] [phone] PCP - General Family Medicine 08/07/15 09/15/16 Maya Burton ARNP [address] [place] [phone] PCP - General Nurse Practitioner 09/16/16 08/01/17 Samanta Tanner ARNP [address] [place] [phone] PCP - General Nurse Practitioner 08/02/17 10/28/17 Vibha Wagoner ARNP [address] [place] [phone] PCP - General Family Medicine 10/29/17 12/21/17 Joyce Marcos ARNP [address] [facility] 140 [place], [place] [address] PCP - General Nurse Practitioner 12/22/17 02/21/19 Melvin Padilla ARNP [address] [phone] PCP - General Nurse Practitioner 02/22/19 07/14/20 Joyce Marcos ARNP [address] [phone] PCP - General Nurse Practitioner 07/15/20 documented as of this encounter
--- OUTSIDE RECORDS SUMMARY | 2024-11-16 13:02 | XMS_ITS | Encounter Summary ---
Author Organization [facility] Address [address] [place] [address] Care Team Providers Care Tin Flipper Name Role Phone Meir Echeverria MD Primary Care Provider Ish DeniseP Primary Care Provider Unava ilable Meir Echeverria MD Primary Care Provider Woo Small MD Primary Care Provider Meir Echeverria MD Primary Care Provider Maya BurtonP Primary Care Provider Samanta TannerP Primary Care Provider Vibha WagonerP Primary Care Provider [phone] Joyce MarcosP Primary Care Provider Melvin Padilla Primary Care Provider [phone] Joyce MarcosP Primary Care Provider [phone] Reason for Visit * Reason Onset Date Comments Medication Refill 01/30/2014 Please call lisa high regarding increasing Topamax qty. Refil being sent by pharmacy today. Zohreh Guerrero Encounter Details Date Type Department Care Team (Late st Contact Info) Description [facility] [address] [place] [phone] Meir Echeverria MD [address] [place] [address] Social History Tobacco Use Types Packs/Day Years [...] on filedocumented in this encounter Care Teams Tin Flipper Relationship Specialty Start Date End Date Meir Echeverria MD PCP - General Family Medicine 11/16/13 03/25/14 Ish Denise ARNP PCP - General 03/26/14 04/04/14 Meir Echeverria MD PCP - General Family Medicine 04/05/14 07/21/15 Woo Small MD [address] [place] [phone] PCP - General Internal Medicine 07/22/15 08/06/15 Meir Echeverria MD PCP - General Family Medicine 08/07/15 09/15/16 Maya Burton ARNP [address] [place] [phone] PCP - General Nurse Practitioner 09/16/16 08/01/17 Samanta Tanner ARNP [address] [place] [phone] PCP - General Nurse Practitioner 08/02/17 10/28/17 Vibha Wagoner ARNP [address] [place] [phone] PCP - General Family Medicine 10/29/17 12/21/17 Joyce Marcos ARNP [address] [facility] [address] [place], [place] [address] PCP - General Nurse Practitioner 12/22/17 02/21/19 Melvin Padilla ARNP [address] [facility] [address] [place], [place] [address] PCP - General Nurse Practitioner 02/22/19 07/14/20 Joyce Marcos ARNP [address] [facility] [address] [place], [place] [address] PCP - General Nurse Practitioner 07/15/20 documented as of this encounter
--- OUTSIDE RECORDS SUMMARY | 2024-11-16 13:02 | XMS_ITS | Encounter Summary ---
Author Organization [facility] Address [address] [facility] [address] [place] [address] Phone Care Team Providers Care Referral Manager Name Role Phone Hunter Sotomayor Primary Care Provider + Hiro Eldridge MD Primary Care Provider [phone] Encounter Details Date Type Department Care Team (Latest Contact Info) Description 09/07/2022 Transcribe Orders [facility] [address] [place] [address] Aileen Grubbs PA [address] [place] [address] Splenomegaly (Primary Dx) Social History Tobacco Use [...] Description 08/14/2025 10:00 AM EDT Office Visit [facility] [place] [address] [facility] [address] [place] [address] Marcin Alaniz MD, PhD [address] [place] [address] Department [place] [address] [email or web address] documented as of this encounter Results * Comprehensive metabolic panel (09/07/2022 2:16 PM EDT) SODIUM 140 133 - 146 mmol/L [facility] POTASSIUM 4.2 3.3 - 5.1 mmol/L [facility] CHLORIDE 104 96 - 108 mmol/L [facility] CO2 24 21 - 35 mmol/L [facility] BUN 13 6 - 19 mg/dL [facility] CREATININE 0.80 0.5 - 1.5 mg/dL [facility] GLUCOSE 96 70 - 99 mg/dL [facility] ALBUMIN 4.6 3.9 - 4.8 g/dL [facility] TOTAL PROTEIN 6.9 6.5 - 8.0 g/dL [facility] CALCIUM 9.7 8.4 - 10.3 mg/dL [facility] ALKALINE PHOSPHATASE 86 39 - 117 U/L [facility] TOTAL BILIRUBIN 0.3 0.0 - 1.2 mg/dL [facility] AST 23 0 - 37 U/L [facility] ALT 19 0 - 40 U/L [facility] GLOBULIN 2.3 1 - 4.8 g/dL [facility] EGFR 84 >59 mL/min/1.7 3m2 [facility] Comment:Estimated glomerular filtration rate calculated using the CKD-EPI refit equation. ANION GAP 16 10 - 20 mmol/L [facility] Blood 09/07/2022 2:16 PM EDT 09/07/2022 2:39 PM EDT us Aileen [facility] BLOOD ORDERABLES Final Result [facility] [address] [place] [address] * CBC and differential (09/07/2022 2:16 PM EDT) WBC 5.73 4.00 - 11.00 K/uL [facility] RBC 4.23 3.72 - 5.30 M/uL [facility] HGB 13.3 11.4 - 15.9 g/dL [facility] HCT 40.6 34.2 - 46.8 % [facility] PLT 240 140 - 430 K/uL [facility] MCV 96.0 78.0 - 97.0 fL [facility] MCH 31.4 25.0 - 33.0 pg [facility] MCHC 32.8 32.0 - 36.0 g/dL [facility] RDW 12.3 11.0 - 16.0 % [facility] MPV 10.1 8.4 - 12.8 fl [facility] DIFF METHOD Auto [facility] NEUTS 63.2 43.0 - 75.0 % [facility] LYMPHS 27.9 18.2 - 47.4 % [facility] MONOS 6.1 4.00 - 11.00 % [facility] EOS 2.3 0.0 - 8.0 % [facility] BASOS 0.2 0.0 - 2.0 % [facility] Granulocytes, immature (%) 0.3 0.0 - 0.9 % [facility] ABSOLUTE NEUTS 3.62 1.80 - 7.70 K/uL [facility] ABSOLUTE LYMPHS 1.60 1.00 - 3.10 K/uL [facility] ABSOLUTE MONOS 0.35 0.20 - 0.80 K/uL [facility] ABSOLUTE EOS 0.13 0.00 - 0.80 K/uL [facility] ABSOLUTE BASOS 0.01 0.00 - 0.09 K/uL [facility] Granulocytes, immature 0.02 0.00 - 0.05 K/uL [facility] Blood 09/07/2022 2:16 PM EDT 09/07/2022 2:39 PM EDT us Aileen [facility] BLOOD ORDERABLES Final Result [facility] [address] [place] [address] documented in this encounter Visit Diagnoses Diagnosis Splenomegaly- Primary documented in this encounter Care Teams Referral Manager Relationship Specialty Start Date End Date Hunter Sotomayor PA [address] [place] [address] PCP - General 10/07/21 01/21/23 Hiro Eldridge MD [address] [phone] PCP - General Internal Medicine 01/22/23 documented as of this encounter Additional Source Comments The information contained in this document represents components of the legal health record. It is not the complete legal health record.[facility]
--- OUTSIDE RECORDS SUMMARY | 2024-11-16 13:02 | XMS_ITS | Referral Summary ---
Author Organization [facility] Address [address] [place] [address] Care Team Providers Care Director Strategic Account Management Name Role Phone Priti Joyceminda VALLECILLO Primary Care Provider [phone] Allergies Active Allergy Reactions Criticality Noted Date [...] (10/26/2016): Added automatically from request for surgery [id number] Elevated glycated hemoglobin 02/15/2016 09/20/2017 Tobacco use [...] M.D., rp/brianna:04/25/2019 10:53:39 copy to: Melvin VALLECILLO, [facility], fax: [phone] letter sent: Normal Letter A-B-C Mammogram BI-RADS: [...] made to exam dated: 01/31/2009 mammogram - [facility]. FINDINGS: The breast composition of both [...] is made to exam dated: 01/31/2009 [facility]. FINDINGS: The breast composition of both [...] M.D. rp/penrad:04/25/2019 10:53:39 copy to: Melvin VALLECILLO, [facility], fax:[phone] letter sent: Normal Letter A-B-C Mammogram BI-RADS: 1 Negative Colt Trujillo MD IM MAMMOGRAPHY ORDERABLES Monique l Result * (ABNORMAL) Lipid panel (09/21/2017 12:38 AM PDT) Cholesterol 166 0 - 199 mg/dL 09/21/2017 9:16 AM PDT [facility] Triglycerides 104 0 - 149 mg/dL 09/21/2017 9:16 AM PDT [facility] HDL Cholesterol 38(L) 40 - 90 mg/dL 09/21/2017 9:16 AM PDT [facility] Chol/HDL-C Ratio 4.4 0.0 - 5.0 09/22/19 18 9:16 AM PDT [facility] LDL Cholesterol 107 0 - 130 mg/dL 09/21/2017 9:16 AM PDT [facility] LDL, HDL-C Ratio 2.8 (No normals established ) 09/21/2017 9:16 AM PDT [facility] Non HDL Cholesterol,Calc 128 0 - 159 mg/dL 09/21/2017 9:16 AM PDT [facility] Blood Venipuncture / Unknown 09/21/2017 12:38 AM PDT 09/21/2017 12:42 AM PDT Narrative [facility] - 09/21/2017 9:16 AM PDT HDL [...] MD LAB BLOOD ORDERABLES Final Resul t [facility] [address] [place] [address] * Screening Colonoscopy - Non-High Risk (11/04/2016 [...] care provider. Procedure Code(s): --- Professional --- 13830, Colonoscopy, flexible; with biopsy, single or multiple Diagnosis Code(s): --- Professional --- Z12.11, Encounter for screening for malignant neoplasm of colon K57.30, Diverticulosis of large intestine without perforation or abscess without bleeding CPT copyright 2014 [employer]. All rights reserved. The codes documented in this report are preliminary and upon coil cleaner review may be revised to meet current [...] 1960 Admit Type: Ambulatory Age: 56 Room: [place] [address] Gender: Female Attending MD: Jasmyn Jordan MD [...] oxygen saturations were monitored continuously. The PCF-[id number] was introduced through the anus and advanced [...] 1960 Admit Type: Ambulatory Age: 56 Room: [facility] Gender: Female Attending MD: Jasmyn [...] and oxygen saturations were monitored continuously. ThePCF-[id number] was introduced through the anus and advancedto [...] care provider. Procedure Code(s): --- Professional --- 07258, Colonoscopy, flexible; with biopsy, single or multiple Diagnosis Code(s): --- Professional --- Z12.11, Encounter for screening for malignantneoplasm of colon K57.30, Diverticulosis of large intestine without perforation or abscess without bleeding CPT copyright 2014 [employer]. All rights reserved. The codes documented in this report are preliminary and upon coil cleaner reviewmay be revised to meet current compliance requirements. MD Jasmyn Farah MD 11/04/2016 9:45:48 AM This document has been electronically signed. Number of Addenda: 0 Note Initiated On: 11/04/2016 9:09 AM Procedure/Sedation Begin: 9:13:54 AM Procedure/Sedation Complete: 9:35:37 AM Jasmyn Jordan MD GI PROCEDURE ORDERABLES Final Result Performing Organization Address City/State/[facility] Co de Phone Number PROVATION from Last 3 Months or Most Recently Relevant to Health Maintenance Insurance [facility] MEDICAID MEDICAID OUT OF STATE Advance Directives Documents on File Type Date Recorded Patient Marine Cargo Inspector Expl anation Power of Attorneys 09/21/2017 Beverly [...] Pascual Daughter Health Care Agent Care Teams Director Strategic Account Management Relationship Specialty Start Date End Date Joyce Marcos ARNP [address] [address] PCP - General Nurse Practitioner 07/15/20
--- OUTSIDE RECORDS SUMMARY | 2024-11-16 13:02 | XMS_ITS | Encounter Summary ---
Author Organization [employer] [facility] Address [address] [place] [address] Care Team Providers Care Supervisor Blast Furnace Auxiliaries Name Role Phone Joyce MarcosP Primary Care Provider [phone] Melvin Padilla Primary Care Provider [phone] Joyce Marcos [facility] Primary Care Provider [phone]- [phone] Reason for Referral * Ultrasound (Routine) - Closed Specialty Diagnoses / Procedures Referred By Mario Alberto li Referred To Contact Radiology Diagnoses Postmenopausal bleeding Procedures US Pelvis Complete and US Non OB Transvaginal Colt Trujillo MD [address] [place] [address] Phone: tel: fax: [facility] Radiology [address] [place] [address] Phone: tel: fax: Referral ID Status Reason Start Date Expiration Date Visits Re quested Visits Authorized [id number] Closed 05/27/2018 05/27/2019 1 1 Encounter Details Date Type Department Care Team (Latest Contact Info) Description 05/27/2018 Order Construction Skills Teacher [facility] Radiology [address], [place] [phone] Colt Trujillo MD [address] [facility] [address] [place] [address] Postmenopausal bleeding (Primary Dx) Social [...] to exclude the possibility of neoplastic process. Plumbing Service Technician: Tosha Carrion Construction Skills Teacher Time: 05/30/2018 3:07 PM Reading Workstation ID: [id number] Narrative 05/30/2018 3:31 PM PDT Exam date: [...] recommended to exclude the possibility of neoplasticprocess. Plumbing Service Technician: Tosha Carrion Construction Skills Teacher Time: 05/30/2018 3:07 PM Reading Workstation ID: [id number] Colt Trujillo MD [facility] ORDERABLES Final Result documented in this encounter Visit Diagnoses Diagnosis Postmenopausal bleeding- Primary Postmenopausal bleeding documented in this encounter Care Teams Supervisor Blast Furnace Auxiliaries Relationship Specialty Start Date End Date Joyce Marcos ARNP [address] [facility] [address] [place] [address] PCP - General Nurse Practitioner 12/22/17 02/21/19 Melvin Padilla ARNP 1950 [facility] [address] [place] [address] PCP - General Nurse Practitioner 02/22/19 07/14/20 Joyce Marcos ARNP [address] [facility] [address] [place], [place] [address] PCP - General Nurse Practitioner 07/15/20 documented as of this encounter
--- OUTSIDE RECORDS SUMMARY | 2024-11-16 13:02 | XMS_ITS | Encounter Summary ---
Author Organization [employer] [facility] Address [address] [place] [address] Care Team Providers Care Ethylene Compressor Operator Name Role Phone Samanta Tanner [facility] Primary Care Provider Vibha Wagoner [facility] Primary Care Provider [phone] Joyce Marcos [facility] Primary Care Provider [phone] Melvin Padilla [facility] Primary Care Provider [phone] Joyce Marcos [facility] Primary Care Provider [phone] Reason for Referral * Consultation (Routine) - Closed Specialty Diagnoses / Procedures Referred By Contaubrey li Referred To Contact Gastroenterology Diagnoses Projectile vomiting with nausea Cristal Bah MD Phone: tel: fax: [facility] [address], [address] [place] [address] Phone: tel: fax: Referral ID Status Reason Start Date Expiration Date V isits Requested Visits Authorized [id number] Closed Specialty Services Required 10/13/2017 10/13/2018 1 1 Encounter Details Date Type Department Care Team (Latest Contact Info) Description 10/13/2017 Order Ranch Hand Supervisor Merged [facility] [place] [address] [place] [address], [address] [place] [address] Cristal Bah MD [address] [place] [phone] Vomiting without nausea, intractability of vomiting [...] nausea documented in this encounter Care Teams Ethylene Compressor Operator Relationship Specialty Start Date End Date Samanta Tanner ARNP PCP - General Nurse Practitioner 08/02/17 10/28/17 Vibha Wagoner ARNP PCP - General Family Medicine 10/29/17 12/21/17 Joyce Marcos ARNP [address] [facility] [address] [place], [place] [address] PCP - General Nurse Practitioner 12/22/17 02/21/19 Melvin Padilla ARNP [address] [place], [place] [address] PCP - General Nurse Practitioner 02/22/19 07/14/20 Joyce Marcos ARNP [address] [facility] [address] [place], [place] [address] PCP - General Nurse Practitioner 07/15/20 documented as of this encounter
--- OUTSIDE RECORDS SUMMARY | 2024-11-16 13:02 | XMS_ITS | Encounter Summary ---
Author Organization [employer] [facility] Address [address] [place] [address] Care Team Providers Care Crown And Bridge Technician Name Role Phone Maya BurtonP Primary Care Provider Samanta Tanner [facility] Primary Care Provider Vibha Wagoner [facility] Primary Care Provider [phone] Joyce Marcos [facility] Primary Care Provider [phone] Melvin Padilla [facility] Primary Care Provider [phone] Joyce Marcos [facility] Primary Care Provider [phone] Encounter Details Date Type Department Care Team (Late st Contact Info) Description 04/18/2017 Order Automotive Electrician [facility] Pulmonary and Sleep Medicine [address] [address] Bertin Joyner MD [address] [place], [place] [id number] Social History Tobacco Use Types Packs/Day Years [...] on filedocumented in this encounter Care Teams Crown And Bridge Technician Relationship Specialty Start Date End Date Maya Burton ARNP PCP - General Nurse Practitioner 09/16/16 08/01/17 Samanta Tanner ARNP PCP - General Nurse Practitioner 08/02/17 10/28/17 Vibha Wagoner ARNP PCP - General Family Medicine 10/29/17 12/21/17 Joyce Marcos ARNP [address] [place], [place] [id number] PCP - General Nurse Practitioner 12/22/17 02/21/19 Melvin Padilla ARNP [address] [place], [place] [address] PCP - General Nurse Practitioner 02/22/19 07/14/20 Joyce Marcos ARNP [address] [facility] [address] [facility] [address] [place] [address] PCP - General Nurse Practitioner 07/15/20 documented as of this encounter
--- OUTSIDE RECORDS SUMMARY | 2024-11-16 13:02 | XMS_ITS | Clinical Summary ---
Author Organization [employer] [facility] Address [address] [place] [address] Care Team Providers Care Auto Service Station Attendant Name Role Phone Heath Loo MD Primary [...] Plan of Treatment Not on file Insurance [facility] [employer] CARD [facility] HEALTH BENEFIT PLAN Care Teams Auto Service Station Attendant Relationship Specialty Start Date End Date Heath Loo MD PCP - General 11/13/08 Erickson Jean MD [place] 02/08/10 Adriana Castro MD ADDRESS REMOVED BY REQUEST 02/08/10
--- OUTSIDE RECORDS SUMMARY | 2024-11-16 13:03 | XMS_ITS | Encounter Summary ---
Author Organization [employer] [facility] Address [address] [place] [address] Care Team Providers Care Lead Systems Architect Name Role Phone Maya Burton Primary Care Provider [phone] Samanta TannerP Primary Care Provider Vibha WagonerP Primary Care Provider Joyce Marcos [facility] Primary Care Provider [phone] Melvin Padilla [facility] Primary Care Provider [phone] Joyce Marcos [facility] Primary Care Provider [phone] Reason for Referral * Surgical (Routine) - Closed Specialty Diagnoses / Procedures Referred By Mario Alberto li Referred To Contact Gastrointestinal Surgery Diagnoses Encounter for screening for malignant neoplasm of colon Procedures Case Request GI/Pain: COLONOSCOPY Maya Burton ARNP Phone: tel: fax: [facility] [address], [address] [address] Phone: tel: fax: Referral ID Status Reason Start Date Expiration Date Visits Re quested Visits Authorized [id number] Closed 10/20/2016 10/20/2017 1 1 Encounter Details Date Type Department Care Team (Latest Contact Info) Description 10/20/2016 Order Lead Net Software Developer [facility] - [address], [address] [place] [address] Myaa Burton ARNP [address] [place] [address] Encounter for screening for malignant neoplasm of [...] Primary documented in this encounter Care Teams Lead Systems Architect Relationship Specialty Start Date End Date Maya Burton ARNP PCP - General Nurse Practitioner 09/16/16 08/01/17 Samanta Tanner ARNP PCP - General Nurse Practitioner 08/02/17 10/28/17 Vibha Wagoner ARNP PCP - General Family Medicine 10/29/17 12/21/17 Joyce Marcos ARNP [address] [facility] [address], [place] [id number] PCP - General Nurse Practitioner 12/22/17 02/21/19 Melvin Padilla ARNP [address], [place] [id number] PCP - General Nurse Practitioner 02/22/19 07/14/20 Joyce Marcos ARNP [address] [facility] [address] [facility] [address], [place] [address] PCP - General Nurse Practitioner 07/15/20 documented as of this encounter
--- OUTSIDE RECORDS SUMMARY | 2024-11-16 13:03 | XMS_ITS | Encounter Summary ---
Author Organization [facility] Address [address] [place] [address] Care Team Providers Care Business Case Analyst Name Role Phone Meir Echeverria MD Primary Care Provider Maya Burton [facility] Primary Care Provider [phone] Samanta Tanner [facility] Primary Care Provider Vibha Wagoner [facility] Primary Care Provider Joyce Marcos [facility] Primary Care Provider [phone] Melvin Padilla [facility] Primary Care Provider Joyce Marcos [facility] Primary Care Provider [phone] Reason for Referral * Consultation (Urgent) - Closed Specialty Diagnoses / Procedures [facility] To Contact Sleep Medicine / Pulmonology Diagnoses Daytime somnolence Snoring Insomnia, unspecified type Woo Small MD [address] [place] [phone] Phone: tel: fax: [facility] Pulmonary and Sleep Medicine [address] [address] Phone: tel: fax: Referral ID Status Reason Start Date Expiration Date V isits Requested Visits Authorized [id number] Closed Specialty Services Required 09/25/2015 09/24/2016 1 1 Encounter Details Date Type Department Care Team (Latest Contact Info) Description 09/25/2015 Order Internet Cafe Manager [facility] Pulmonary and Sleep Medicine [place] [address] [place] [address] Woo Small MD [address] [place] [phone] Daytime somnolence (Primary Dx); Snoring; Insomnia, unspecified [...] type documented in this encounter Care Teams Business Case Analyst Relationship Specialty Start Date End Date Meir Echeverria MD PCP - General Family Medicine 08/07/15 09/15/16 Maya Burton ARNP PCP - General Nurse Practitioner 09/16/16 08/01/17 Samanta Tanner ARNP PCP - General Nurse Practitioner 08/02/17 10/28/17 Vibha Wagoner ARNP PCP - General Family Medicine 10/29/17 12/21/17 Joyce Marcos ARNP [address] [facility] [address] [place] [address] PCP - General Nurse Practitioner 12/22/17 02/21/19 Melvin Padilla ARNP [address] [place] [address] PCP - General Nurse Practitioner 02/22/19 07/14/20 Joyce Marcos ARNP [address] [facility] [address] [place] [address] PCP - General Nurse Practitioner 07/15/20 documented as of this encounter
--- OUTSIDE RECORDS SUMMARY | 2024-11-16 13:03 | XMS_ITS | Encounter Summary ---
Author Organization [facility] Address [address] [place] [address] Phone Care Team Providers Care Senior User Experience Architect Name Role Phone Hiro Eldridge MD Primary Care Provider [phone] Encounter Details Date Type Department Care Team (Late st Contact Info) Description 05/19/2023 Procedure Pass [facility] [address] [place] [address] Social History Tobacco Use Types Packs/Day Years [...] Description 08/14/2025 10:00 AM EDT Office Visit [facility] Neurology at [place] [address] [facility] [address] [place] [address] Marcin Alaniz MD, PhD [address] [facility] [place] [address] [email or web address] documented as of this encounter Visit Diagnoses Not on filedocumented in this encounter Care Teams Senior User Experience Architect Relationship Specialty Start Date End Date Po, Hiro Harper MD [address] [place] [address] [place] [phone] PCP - General Internal Medicine 01/22/23 documented as of this encounter Additional Source Comments The information contained in this document represents components of the legal health record. It is not the complete legal health record.[facility]
--- OUTSIDE RECORDS SUMMARY | 2024-11-16 13:03 | XMS_ITS | Encounter Summary ---
Author Organization [facility] Address [address] [place] [address] Phone Care Team Providers Care Software Licensing Analyst Name Role Phone Hiro Eldridge MD Primary Care Provider [phone] Encounter Details Date Type Department Care Team (Late st Contact Info) Description 11/07/2024 Orders Only [facility] [address] [place] [address] Ivan Sanchez MD [address] [place] [email or web address] Social History Tobacco Use Types Packs/Day Years [...] Description 08/14/2025 10:00 AM EDT Office Visit [facility] Neurology at [address] [address] Marcin Alaniz MD, PhD [address] [place] [address] Department [place] [address] [email or web address] documented as of this encounter Visit Diagnoses Not on filedocumented in this encounter Care Teams Software Licensing Analyst Relationship Specialty Start Date End Date Hiro Eldridge MD [address] [phone] PCP - General Internal Medicine 01/22/23 documented as of this encounter Additional Source Comments The information contained in this document represents components of the legal health record. It is not the complete legal health record.[facility]
--- OUTSIDE RECORDS SUMMARY | 2024-11-16 13:03 | XMS_ITS | Clinical Summary ---
Author Organization [facility] Address [address] [employer] [facility] [address] [place] [phone] Phone Care Team Providers Care Logistics Coordinator Name Role Phone Hiro Eldridge MD Primary Care Provider [phone] Allergies Active Allergy Reactions Criticality Noted Date Comments Haloperidol 08/21/2020 Causes QT prolongation Cephalexin Anaphylaxis High 04/10/2020 Closes throat unable to breath Metoclopramide Hcl 06/12/2022 Oxycodone Itching Low 11/17/2005 Ondansetron Hcl 08/21/2020 Causes QT prolongation Medications lisinopril (PRINIVIL,ZESTRI L) 10 MG tablet Take 1 tablet (10 mg total) by mouth daily. 30 tablet 06/10/19 21 Active sertraline (ZOLOFT) 100 MG tablet Take 200 mg by mouth daily. Active tiotropium (SPIRIVA HANDIHALER) 18 mcg inhalation capsule Inhale 18 mcg into the lungs daily. Active budesonide-formo terol (SYMBICORT) 80-4.5 mcg/actuation inhaler Inhale 2 puffs into the lungs 2 (two) times a day. Active albuterol 90 mcg/actuation inhaler Inhale 2 puffs into the lungs every 6 (six) hours as needed for wheezing. Active montelukast (SINGULAIR) 10 mg tablet Take 10 mg by mouth daily. 05/10/19 23 Active diazePAM (VALIUM) 5 MG tablet Take 5 mg by mouth nightly at bedtime as needed. 05/17/19 23 Active lamoTRIgine (LAMICTAL) 25 MG IMMEDIATE release tablet Take 25 mg by mouth daily. 04/19/19 23 Active scopolamine (TRANSDERM-SCOP) 1 mg over [address] 1 patch onto the skin every third day. Place 1 patch onto the skin every third day. 10 patch 11 03/17/19 24 Active topiramate (TOPAMAX) 50 MG tablet Take 1 tablet (50 mg total) by mouth 2 (two) times a day. 180 tablet 3 03/23/19 25 Active lidocaine 2 % Soln Take 15 mL by mouth 2 (two) times a day as needed. Active Medication-Free Text Take 500 mg by mouth. Pt takes with lidocaine soln Active galcanezumab-gnl m (EMGALITY PEN) 120 mg/mL subcutaneous injection Inject [...] skin for 24 hours. 12 capsule 3 08/30/19 25 Active cyclobenzaprine (FLEXERIL) 5 MG tablet TAKE 1 TABLET BY MOUTH 3 TIMES DAILY NEEDED FOR SPASMS 90 tablet 3 11/01/19 25 Active cyclobenzaprine (FLEXERIL) 5 MG tablet TAKE 1 TABLET BY MOUTH 3 TIMES DAILY NEEDED FOR SPASMS 90 tablet 3 06/20/19 25 025 Discontinued Active Problems Problem Noted Date Diagnosed Date [...] followed by Dr. Willis of gastroenterology in [facility]. Patient states that traditional antiemetics have not [...] Encounters Date Type Department Care Team Description 11/08/2024 Telephone [facility] [address] [address] Brielle Camejo PA-C 11/07/2024 Orders Only [address] [address] Ivan Sanchez MD 11/07/2024 Telephone [facility] Neurology at [address] [address] Marcin Alaniz MD, PhD 11/05/2024 Telephone [facility] Neurology at [address] [address] Marcin Alaniz MD, PhD OTHER 10/30/2024 Refill [facility] Neurology at [address] [address] Marcin Alaniz MD, PhD Medication Refill 08/30/2024 Telephone [facility] Neurology at [address] [address] Marcin Alaniz MD, PhD Medication Refill 08/29/2024 Orders Only [facility] Neurology at [address] [address] Marcin Alaniz MD, PhD 08/27/2024 12:28 PM EDT - 08/27/2024 11:59 PM EDT Hospital Encounter [facility] Pathology Outpatient Lab [address] [place] [address] Marcin Alanzi MD, PhD Discharge Disposition: Home or Self Care 08/27/2024 10:00 AM EDT Office Visit [facility] Neurology at [address] [address] Marcin Alaniz MD, PhD Small fiber neuropathy [...] Description 08/14/2025 10:00 AM EDT Office Visit [facility] Neurology at [address] [address] Marcin Alaniz MD, PhD [address] [place] [address] Department [place] [address] [email or web address] Maintenance Due Date Last Done Comments [...] PANEL 09/21/2022 09/21/2017 BLOOD PRESSURE 08/02/2023 01/31/2023 INFLUENZA VACCINE (#1) 2024 , 11/24/2021, 12/22/2020, Additional history exists COVID-19 VACCINE ( season) 2024 01/28/2023, 10/11/2022, 11/24/2021, Additional history exists CREATININE LEVEL 08/27/2025 08/27/2024, 04/2023, 07/08/2023, Additional history exists POTASSIUM LEVEL 08/27/2025 08/27/2024, 10/04/2023, 07/08/2023, Additional history exists SCREENING FOR DIABETES [...] EDT) SODIUM 135(L) 136 - 145 mmol/L [facility] POTASSIUM 4.1 3.4 - 5.0 mmol/L [facility] CHLORIDE 101 98 - 107 mmol/L [facility] CO2 23 22 - 31 mmol/L [facility] BUN 15 6 - 23 mg/dL [facility] CREATININE 0.96 0.50 - 1.20 mg/dL [facility] GLUCOSE 95 70 - 115 mg/dL [facility] ALBUMIN 4.1 3.5 - 5.2 g/dL [facility] TOTAL PROTEIN 8.7(H) 6.0 - 8.0 g/dL [facility] CALCIUM 9.4 8.6 - 10.7 mg/dL [facility] ALKALINE PHOSPHATASE 86 40 - 130 U/L [facility] TOTAL BILIRUBIN 0.3 0.0 - 1.0 mg/dL [facility] AST 30 10 - 50 U/L [facility] ALT 28 10 - 50 U/L [facility] GLOBULIN 4.6(H) 2.2 - 4.2 g/dL [facility] EGFR 67 >60 mL/min/1.7 3m2 [facility] Comment:Estimated glomerular filtration rate calculated using the CKD-EPI refit equation. ANION GAP 11 3 - 15 mmol/L [facility] 08/27/2024 12:2 8 PM EDT 08/27/2024 1:18 PM EDT us Marcin Alaniz MD, PhD LAB BLOOD ORDERABLES Final R esult [facility] [address] [place] [address] * (ABNORMAL) CBC and differential (08/27/2024 12:28 PM EDT) WBC 5.13 4.00 - 11.00 K/uL [facility] RBC 4.05 4.00 - 5.20 M/uL [facility] HGB 12.9 12.0 - 16.0 g/dL [facility] HCT 38.6 36.0 - 46.0 % [facility] PLT 219 150 - 450 K/uL [facility] MCV 95.3 80.0 - 100.0 fL [facility] MCH 31.9(H) 27.0 - 31.0 pg [facility] MCHC 33.4 32.0 - 36.0 g/dL [facility] RDW 12.5 11.5 - 14.5 % [facility] MPV 8.9 8.4 - 12.0 fL [facility] NRBC 0.00 0.00 /100 WBCs [facility] ABSOLUTE NRBC 0.00 0.00 K/uL [facility] DIFF METHOD Auto [facility] NEUTS 56.7 48.0 - 76.0 % [facility] LYMPHS 35.3 18.0 - 41.0 % [facility] MONOS 6.8 4.0 - 11.0 % [facility] EOS 0.2 0.0 - 5.0 % [facility] BASOS 0.4 0.0 - 1.5 % [facility] Granulocytes, immature (%) 0.6 0.0 - 0.9 % [facility] ABSOLUTE NEUTS 2.91 1.92 - 7.60 K/uL [facility] ABSOLUTE LYMPHS 1.81 0.72 - 4.10 K/uL [facility] ABSOLUTE MONOS 0.35 0.16 - 1.10 K/uL [facility] ABSOLUTE EOS 0.01 0.00 - 0.50 K/uL [facility] ABSOLUTE BASOS 0.02 0.00 - 0.15 K/uL [facility] Granulocytes, immature 0.03 0.00 - 0.09 K/uL [facility] Blood 08/27/2024 12:2 8 PM EDT 08/27/2024 1:18 PM EDT us Marcin Alaniz MD, PhD LAB BLOOD ORDERABLES Final R esult Performing Organization Address City/State/[facility] Co de Phone Number [phone] [place] [address] from Last 3 Months Insurance [facility] MEDICARE REPLACEMENT [facility] MEDICARE REPLACEMENT [facility] CARE MEDICARE REPLACEMENT [facility] MEDICARE REPLACEMENT [facility] CARE MEDICARE REPLACEMENT Advance Directives For more information, please contact: [phone] (9AM - 5PM [facility], Tuesday-Tuesday) * Full Code (Latest Code Status on File) Date Activated Date Inactivated Comments 10/07/2021 8:01 AM Question Answer Comments Code Status Confirmed With: Other (specify below ) Code Discussion Comments: presumed * Full Code Date Activated Date Inactivated Comments 06/06/2020 2:23 PM 10/07/2021 8:01 AM Question Answer Comments Code Status Confirmed With: Patient Care Teams Logistics Coordinator Relationship Specialty Start Date End Date Hiro Eldridge MD [address] [place] [address] Drive [address] [place] [address] PCP - General Internal Medicine 01/22/23 Additional Source Comments The information contained in this document represents components of the legal health record. It is not the complete legal health record.[facility]
--- OUTSIDE RECORDS SUMMARY | 2024-11-16 13:03 | XMS_ITS | Encounter Summary ---
Author Organization [employer] [facility] Address [address] [place] [address] Care Team Providers Care Online Marketing Analyst Name Role Phone Meir Echeverria MD Primary Care Provider Maya Burton [facility] Primary Care Provider Samanta Tanner [facility] Primary Care Provider Vibha Wagoner [facility] Primary Care Provider [phone] Joyce Marcos [facility] Primary Care Provider [phone] Melvin Padilla [facility] Primary Care Provider [phone] Joyce Marcos [facility] Primary Care Provider [phone] Reason for Visit * Reason Comments Other Encounter Details Date Type Department Care Team (Late st Contact Info) Description 10/10/2015 Refill [facility] - Primary Care [address] [place] [phone] Meir Echeverria MD [address] [place] [address] Social History Tobacco Use Types Packs/Day [...] on filedocumented in this encounter Care Teams Online Marketing Analyst Relationship Specialty Start Date End Date Meir Echeverria MD PCP - General Family Medicine 08/07/15 09/15/16 Maya Burton ARNP PCP - General Nurse Practitioner 09/16/16 08/01/17 Samanta Tanner ARNP PCP - General Nurse Practitioner 08/02/17 10/28/17 Vibha Wagoner ARNP PCP - General Family Medicine 10/29/17 12/21/17 Joyce Marcos ARNP [address] [address] PCP - General Nurse Practitioner 12/22/17 02/21/19 Melvin Padilla ARNP [address] [facility] [address] [facility] [address] [place], [place] [phone] PCP - General Nurse Practitioner 02/22/19 07/14/20 Joyce Marcos ARNP [address] [facility] [address] [place], [place] [phone] PCP - General Nurse Practitioner 07/15/20 documented as of this encounter
== END 2024-11-16 12:28 | disposition home or self-care (01) ==
LOC: HO.HMCH 11:14
PROVIDERS: PCP Internal Medicine; Visit Provider Internal Medicine
DX: I45.81 Long QT syndrome (principal); G61.81 Chronic inflammatory demyelinating polyneuritis; J41.0 Simple chronic bronchitis; F33.1 Major depressive disorder, recurrent, moderate; I10 Essential (primary) hypertension; R73.01 Impaired fasting glucose; K21.9 Gastro-esophageal reflux disease without esophagitis; G43.009 Migraine without aura, not intractable, without status migrainosus; M16.0 Bilateral primary osteoarthritis of hip